=== PATIENT | male | born 1960 | race Caucasian/White ===

== ENCOUNTER 2021-12-06 09:23 | Outpatient (REF) | payer OTHER, SELFPAY ==
[2021-12-06 11:13] LABS: MANUAL DIFF FLAG NO
[2021-12-06 11:21] LABS: Basophils Absolute Auto 0.1 X10*3/uL (0.0-0.2); Basophils Percent Auto 0.9 % (0-2); Eosinophils Absolute Auto 0.2 X10*3/uL (0.0-0.4); Eosinophils Percent Auto 3.9 % (0-4); Hematocrit 41.1 % (42.0-52.0); Hemoglobin 13.5 g/dl (14.0-18.0); Imm Gran Abs Auto 0.01 X10*3/uL (0.00-0.03); Imm Gran Pct Auto 0.2 % (0.0-0.4); Lymphocytes Absolute Auto 2.1 X10*3/uL (1.2-4.9); Lymphocytes Percent Auto 35.8 % (20-40); Mean Corpuscular HGB Conc 32.8 g/dl (31.0-36.0); Mean Corpuscular Volume 85.3 fL (80.0-98.0); Mean Platelet Volume 9.7 fL (9.4-12.4); Monocytes Absolute Auto 0.5 X10*3/uL (0.1-1.2); Monocytes Percent Auto 8.7 % (2-11); Neutrophils Percent Auto 50.5 % (45-73); Platelet Count 305 X10*3/uL (160-400); Red Blood Count 4.82 X10*6/uL (4.60-5.80); Red Cell Distribution Width 13.3 % (11.0-16.0); White Blood Count 5.9 X10*3/uL (4.8-10.8)
[2021-12-06 11:46] LABS: Appearance Urine HAZY; Color Urine YELLOW; Glucose Urine UA NEG (NEG); Leukocyte Esterase Urine NEG (NEG); Nitrite Urine NEG (NEG); PH 5.5 (5.0-8.0); Specific Gravity - Urine >= 1.030 (1.005-1.025); Urine Blood NEG (NEG); Urine Ketones 5 MG/DL (NEG); Urine Protein NEG (NEG-TRACE)
[2021-12-06 12:08] LABS: Estimated Average Glucose 160 mg/dL; Hemoglobin A1c % 7.2 %
[2021-12-06 12:10] LABS: TSH reflex Free T4 1.31 uIU/mL (0.32-4.0)
[2021-12-06 12:23] LABS: Alanine Aminotransferase 65 U/L (0-40); Albumin Level 4.7 g/dL (3.5-5.0); Alkaline Phosphatase 89 U/L (39-117); Anion Gap 11 (12-20); Aspartate Amino Transferase 43 U/L (5-37); Bilirubin Total 0.9 mg/dL (0.0-1.0); Blood Urea Nitrogen 22 mg/dL (9-16); Calcium 9.6 mg/dL (8.4-10.2); Carbon Dioxide 28 mmol/L (22-29); Chloride 106 mmol/L (96-108); Cholesterol 105 mg/dL; Estimated Glomerular Filt Rate > 60; Glucose Fasting 143 mg/dL (60-99); HDL Cholesterol 22 mg/dL; LDL Cholesterol Calculated 61 mg/dl; Potassium 4.3 mmol/L (3.3-5.1); Sodium 141 mmol/L (135-145); Total Protein 7.5 g/dL (6.5-8.0); Triglycerides 111 mg/dL
[2021-12-07 15:12] LABS: Absolute CD3 Count 1621 cells/uL (840-3060); Absolute CD4 Count 1015 cells/uL (490-1740); Absolute CD8 Count 626 cells/uL (180-1170); Absolute Lymphocytes 2100 cells/uL (850-3900); CD4 CD8 Ratio 1.62 (0.86-5.00); Percent CD3 Cells 77 % (57-85); Percent CD4 Cells 48 % (30-61); Percent CD8 Cells 30 % (12-42)
[2021-12-10 17:35] LABS: HIV RNA PCR Qn Copies 101 Copies/mL
== END 2021-12-06 09:24 | disposition home or self-care (01) ==
LOC: HO.WFDLDS 09:23
PROVIDERS: Visit Provider Family Medicine
DX: Z00.00 Encounter for general adult medical examination without abnormal findings (principal); R73.01 Impaired fasting glucose; Z21 Asymptomatic human immunodeficiency virus [HIV] infection status
CPT/HCPCS: 36415; 80053; 80061; 81003; 83036; 84443; 85025; 86359; 86360; 87536

== ENCOUNTER → 2022-01-03 11:02 | Outpatient (BNVA) | payer OTHER, SELFPAY | PROVIDERS: PCP Family Medicine; Visit Provider Internal Medicine ==

== ENCOUNTER 2022-03-14 10:12 | Outpatient (REF) | payer OTHER, SELFPAY ==
[2022-03-14 12:13] LABS: ~HepC Num1 0.07 S/CO (0.00-0.79); ~Hepatitis C Antibody Nonreactive (Nonreactive)
[2022-03-14 12:22] LABS: Syphilis Screen Nonreactive (Nonreactive)
[2022-03-16 16:16] LABS: Absolute CD3 Count 1810 cells/uL (840-3060); Absolute CD4 Count 1124 cells/uL (490-1740); Absolute CD8 Count 690 cells/uL (180-1170); Absolute Lymphocytes 2296 cells/uL (850-3900); CD4 CD8 Ratio 1.63 (0.86-5.00); Percent CD3 Cells 79 % (57-85); Percent CD4 Cells 49 % (30-61); Percent CD8 Cells 30 % (12-42)
[2022-03-17 17:14] LABS: HIV RNA PCR Qn Copies NOT DETECTED copies/mL (NOT DETECTED); HIV RNA PCR Qn Log Copies NOT DETECTED (NOT DETECTED)
== END 2022-03-14 10:13 | disposition home or self-care (01) ==
LOC: HO.WFDLDS 10:12
PROVIDERS: Visit Provider Internal Medicine
DX: Z21 Asymptomatic human immunodeficiency virus [HIV] infection status (principal)
CPT/HCPCS: 36415; 86359; 86360; 86780; 86803; 87536

== ENCOUNTER 2022-07-05 08:32 | Outpatient (REF) | payer OTHER, SELFPAY ==
[2022-07-05 09:38] LABS: Alanine Aminotransferase 64 U/L (0-40); Albumin Level 4.5 g/dL (3.5-5.0); Alkaline Phosphatase 71 U/L (39-117); Anion Gap 17 (12-20); Aspartate Amino Transferase 46 U/L (5-37); Bilirubin Total 0.7 mg/dL (0.0-1.0); Blood Urea Nitrogen 17 mg/dL (9-16); Calcium 8.9 mg/dL (8.4-10.2); Carbon Dioxide 23 mmol/L (22-29); Chloride 106 mmol/L (96-108); Cholesterol 97 mg/dL; Estimated Glomerular Filt Rate > 60; Glucose Fasting 134 mg/dL (60-99); HDL Cholesterol 24 mg/dL; LDL Cholesterol Calculated 51 mg/dl; Sodium 142 mmol/L (135-145); Total Protein 7.3 g/dL (6.5-8.0); Triglycerides 110 mg/dL
[2022-07-05 09:54] LABS: ~HepC Num1 0.05 S/CO (0.00-0.79); ~Hepatitis C Antibody Nonreactive (Nonreactive)
[2022-07-05 09:59] LABS: Prostate Specific Antigen Scr 0.15 ng/mL (<0.05-4.0)
[2022-07-06 11:19] LABS: Syphilis Screen Nonreactive (Nonreactive)
[2022-07-06 12:32] LABS: Absolute CD3 Count 1870 cells/uL (840-3060); Absolute CD4 Count 1181 cells/uL (490-1740); Absolute CD8 Count 705 cells/uL (180-1170); Absolute Lymphocytes 2323 cells/uL (850-3900); CD4 CD8 Ratio 1.68 (0.86-5.00); Percent CD3 Cells 81 % (57-85); Percent CD4 Cells 51 % (30-61); Percent CD8 Cells 30 % (12-42)
[2022-07-08 12:06] LABS: HIV RNA PCR Qn Copies NOT DETECTED copies/mL (NOT DETECTED); HIV RNA PCR Qn Log Copies NOT DETECTED (NOT DETECTED)
== END 2022-07-05 08:33 | disposition home or self-care (01) ==
LOC: HO.LAB 08:32
PROVIDERS: Absent Provider Internal Medicine; PCP Family Medicine; Visit Provider Family Medicine
DX: Z00.00 Encounter for general adult medical examination without abnormal findings (principal); Z12.5 Encounter for screening for malignant neoplasm of prostate; Z21 Asymptomatic human immunodeficiency virus [HIV] infection status
CPT/HCPCS: 36415; 80053; 80061; 84153; 86359; 86360; 86780; 86803; 87536

== ENCOUNTER 2022-09-05 10:18 | Outpatient (REF) | payer OTHER, SELFPAY ==
--- NOTE | ~2022-09-05 | US_ITS ---
EXAMINATION: US ABDOMEN LIMITED WITH LIVER ELASTOGRAPHY CLINICAL INFORMATION: Abnormal liver function tests COMPARISON: None. TECHNIQUE: Real-time imaging of the abdominal viscera. Noninvasive ultrasound liver fibrosis assessment is performed using Divya ElastPQ point quantification shear wave elastography (2D-SWE) with a C5-2 MHz transducer. Multiple elastography samples are obtained. FINDINGS: PANCREAS: Not well visualized due to bowel gas LIVER: Enlarged echogenic liver probably representing fatty infiltration. Hypoechoic area adjacent to the gallbladder, characteristic location of focal fatty sparing. No other focal lesion or intrahepatic biliary duct dilatation. The right lobe measures 19 cm in length. The left lobe measures 12 cm in length. Portal flow is normal/hepatopedal Shear wave liver elastography median stiffness is 1.4 m/s (reference: normal median stiffness is 1.3 m/s or less). IQR/median stiffness to assess sampling precision is 0.01 (reference: good quality data set is IQR/median stiffness of 0.15 or less). GALLBLADDER: Normal. The gallbladder is physiologically distended without evidence of stones, sludge, polyps, wall thickening or pericholecystic fluid. COMMON BILE DUCT: Normal in caliber measuring 0.5 cm in diameter. RIGHT KIDNEY: Normal. No hydronephrosis. No renal calculi or focal parenchymal lesions. The kidney measures 13.7 cm in maximum dimension. FREE FLUID: None. US/US abdomen licona w elastography IMPRESSION: 1. Impression: Enlarged echogenic liver suggestive of fatty infiltration. Pancreas not well visualized 2. Liver elastography: Adequate liver sampling. In the absence of other known clinical signs, rules out compensated advanced chronic liver disease. REFERENCE: Society of Radiologists in Ultrasound Liver Stiffness Thresholds (2020): LIVER STIFFNESS THRESHOLDS: *Liver Stiffness equal or less than 1.3 m/s: High probability of being normal. *Liver Stiffness less than 1.7 m/s: In the absence of other known clinical signs, rules out compensated advanced chronic liver disease. *Liver Stiffness 1.7-2.1 m/s: Suggestive of compensated advanced chronic liver disease but need further test for confirmation. *Liver Stiffness over 2.1 m/s: Rules in compensated advanced chronic liver disease. *Liver Stiffness over 2.4 m/s: Suggestive of clinically significant portal hypertension. QUALITY OF DATA SET: *IQR/Median value equal or less than 0.15 implies a quality data set. *IQR/Median value over 0.15 implies a poor quality data set. SIGNIFICANT CHANGE FROM PRIOR EXAM: Significant change if liver stiffness measurement is 10% or greater from prior exam. OTHER CONSIDERATIONS: The stage of liver fibrosis may be overestimated in the setting of acute hepatitis, liver inflammation, elevated liver function tests, hepatic vascular congestion, obstructive cholestasis, non-fasting state, and infiltrative diseases such as amyloidosis and lymphoma. In some patients with NAFLD, the liver stiffness thresholds for compensated advanced chronic liver disease may be lower. In causes other than viral hepatitis and NAFLD, liver stiffness thresholds are not well established.
== END 2022-09-05 10:19 | disposition home or self-care (01) ==
LOC: HO.US 10:18
PROVIDERS: Visit Provider Family Medicine
DX: R74.8 Abnormal levels of other serum enzymes (principal)
CPT/HCPCS: 76705; 76981

== ENCOUNTER → 2022-11-07 13:58 | Outpatient (BNVA) | payer OTHER, SELFPAY | PROVIDERS: PCP Family Medicine; Referring Provider Family Medicine; Visit Provider Internal Medicine Cardiovascular Disease | DX: I25.10 Atherosclerotic heart disease of native coronary artery without angina pectoris (principal) | CPT/HCPCS: 93005 ==

== ENCOUNTER 2022-11-24 08:57 | Outpatient (REF) | payer OTHER, SELFPAY ==
[2022-11-24 11:33] LABS: Alanine Aminotransferase 93 U/L (0-40); Albumin Level 4.8 g/dL (3.5-5.0); Alkaline Phosphatase 90 U/L (39-117); Anion Gap 13 (12-20); Aspartate Amino Transferase 72 U/L (5-37); Bilirubin Total 0.9 mg/dL (0.0-1.0); Blood Urea Nitrogen 15 mg/dL (9-16); Carbon Dioxide 30 mmol/L (22-29); Chloride 102 mmol/L (96-108); Cholesterol 100 mg/dL; Estimated Glomerular Filt Rate > 60; Glucose Fasting 118 mg/dL (60-99); HDL Cholesterol 22 mg/dL; LDL Cholesterol Calculated 48 mg/dl; Potassium 4.7 mmol/L (3.3-5.1); Sodium 140 mmol/L (135-145); Total Protein 7.6 g/dL (6.5-8.0); Triglycerides 150 mg/dL
[2022-11-24 11:35] LABS: Prostate Specific Antigen Scr 0.23 ng/mL (<0.05-4.0); TSH reflex Free T4 2.08 uIU/mL (0.32-4.0)
== END 2022-11-24 08:58 | disposition home or self-care (01) ==
LOC: HO.WFDLDS 08:57
PROVIDERS: Visit Provider Family Medicine
DX: Z00.00 Encounter for general adult medical examination without abnormal findings (principal); Z12.5 Encounter for screening for malignant neoplasm of prostate
CPT/HCPCS: 36415; 80053; 80061; 84153; 84443

== ENCOUNTER 2022-11-25 08:35 | Outpatient (REF) | payer OTHER, SELFPAY ==
[2022-11-25 11:38] LABS: Appearance Urine Clear; Color Urine Yellow; Glucose Urine UA Negative (Negative); Leukocyte Esterase Urine Negative (Negative); Nitrite Urine Negative (Negative); Urine Blood Negative (Negative); Urine Ketones Negative (Negative); Urine Protein Negative (Neg-Trace)
[2022-11-25 13:46] LABS: Creatinine Urine 104.81 mg/dL; Microalbum/Creatinine Ratio Ur 7.6 ug/mg cr
== END 2022-11-25 08:36 | disposition home or self-care (01) ==
LOC: HO.WFDLNP 08:35
PROVIDERS: Visit Provider Family Medicine
DX: Z00.00 Encounter for general adult medical examination without abnormal findings (principal); I10 Essential (primary) hypertension
CPT/HCPCS: 81003; 82043

== ENCOUNTER → 2022-12-12 15:16 | Outpatient (BNVA) | payer OTHER, SELFPAY | PROVIDERS: PCP Family Medicine; Visit Provider Nurse Practitioner Family | DX: Z13.89 Encounter for screening for other disorder (principal) ==

== ENCOUNTER 2023-01-03 08:31 | Outpatient (REF) | payer OTHER, SELFPAY ==
[2023-01-03 08:57] LABS: MANUAL DIFF FLAG NO
[2023-01-03 09:38] LABS: Basophils Percent Auto 0.7 % (0-2); Eosinophils Absolute Auto 0.2 X10*3/uL (0.0-0.4); Eosinophils Percent Auto 3.7 % (0-4); Hematocrit 42.4 % (42.0-52.0); Hemoglobin 13.8 g/dl (14.0-18.0); Imm Gran Abs Auto 0.01 X10*3/uL (0.00-0.03); Imm Gran Pct Auto 0.2 % (0.0-0.4); Lymphocytes Absolute Auto 2.4 X10*3/uL (1.2-4.9); Lymphocytes Percent Auto 39.8 % (20-40); Mean Corpuscular HGB Conc 32.5 g/dl (31.0-36.0); Mean Corpuscular Hemoglobin 27.8 pg (27.0-33.0); Mean Corpuscular Volume 85.5 fL (80.0-98.0); Monocytes Absolute Auto 0.7 X10*3/uL (0.1-1.2); Monocytes Percent Auto 11.7 % (2-11); Neutrophils Absolute Auto 2.6 x10*3/uL (2.0-8.3); Neutrophils Percent Auto 43.9 % (45-73); Platelet Count 272 X10*3/uL (160-400); Red Blood Count 4.96 X10*6/uL (4.60-5.80); Red Cell Distribution Width 13.5 % (11.0-16.0); White Blood Count 5.9 X10*3/uL (4.8-10.8)
[2023-01-03 10:07] LABS: Alanine Aminotransferase 51 U/L (0-40); Albumin Level 4.5 g/dL (3.5-5.0); Alkaline Phosphatase 84 U/L (39-117); Anion Gap 13 (12-20); Aspartate Amino Transferase 34 U/L (5-37); Bilirubin Direct 0.2 mg/dL (0.0-0.5); Blood Urea Nitrogen 17 mg/dL (9-16); Calcium 9.1 mg/dL (8.4-10.2); Carbon Dioxide 27 mmol/L (22-29); Chloride 105 mmol/L (96-108); Cholesterol 92 mg/dL; Estimated Glomerular Filt Rate > 60; Glucose Random 118 mg/dL (60-115); HDL Cholesterol 25 mg/dL; LDL Cholesterol Calculated 43 mg/dl; Potassium 4.4 mmol/L (3.3-5.1); Sodium 141 mmol/L (135-145); Total Protein 7.1 g/dL (6.5-8.0); Triglycerides 121 mg/dL
[2023-01-04 04:48] LABS: Syphilis Screen Nonreactive (Nonreactive)
[2023-01-04 06:10] LABS: ~HepC Num1 0.08 S/CO (0.00-0.79); ~Hepatitis C Antibody Nonreactive (Nonreactive)
[2023-01-04 16:19] LABS: Absolute CD3 Count 1909 cells/uL (840-3060); Absolute CD4 Count 1200 cells/uL (490-1740); Absolute CD8 Count 730 cells/uL (180-1170); Absolute Lymphocytes 2420 cells/uL (850-3900); CD4 CD8 Ratio 1.64 (0.86-5.00); Percent CD3 Cells 79 % (57-85); Percent CD4 Cells 50 % (30-61); Percent CD8 Cells 30 % (12-42)
[2023-01-06 08:44] LABS: CRP High Sensitivity 0.7 mg/L
[2023-01-06 14:08] LABS: HIV RNA PCR Qn Copies NOT DETECTED copies/mL (NOT DETECTED); HIV RNA PCR Qn Log Copies NOT DETECTED (NOT DETECTED)
== END 2023-01-03 08:32 | disposition home or self-care (01) ==
LOC: HO.LAB 08:31
PROVIDERS: Absent Provider Internal Medicine; PCP Family Medicine; Visit Provider Internal Medicine Cardiovascular Disease
DX: I25.10 Atherosclerotic heart disease of native coronary artery without angina pectoris (principal); E78.5 Hyperlipidemia, unspecified; Z21 Asymptomatic human immunodeficiency virus [HIV] infection status
CPT/HCPCS: 36415; 80048; 80061; 80076; 85025; 86141; 86359; 86360; 86780; 86803; 87536

== ENCOUNTER → 2023-01-09 11:00 | Outpatient (BNVA) | payer OTHER, SELFPAY | PROVIDERS: PCP Family Medicine; Visit Provider Internal Medicine | DX: Z13.89 Encounter for screening for other disorder (principal) ==

== ENCOUNTER 2023-06-05 15:36 | Outpatient (AMB) | payer OTHER, SELFPAY ==
--- NOTE | 2023-06-05 15:48 | A.OFFPC_ITS ---
Vital Signs 06/05/23 15:50 Height 5 ft 6 in Weight 196 lb BMI 31.6 BP 116/72 Blood Pressure Location Lt brachial Position Sitting Pulse 80 Pulse Source Pulse Oximeter Pulse Oximetry (%) 96 Oxygen Delivery Method Room Air Intake Visit Reasons: f/u diabetes Intake Note: Patient is here to follow up on his diabetes, and would like to go over sleep study report. Allergies lisinopril Adverse Reaction (Intermediate, Verified 06/05/23 15:52) Dry cough Medication List - Last Reconciled 06/05/23 by Akash Diaz MD amlodipine 10 mg PO DAILY 90 days aspirin 81 mg PO DAILY 90 days vrhyolobp-sfqhzzxy-wurzrni ala 50-200-25 mg (Biktarvy) 1 tab PO DAILY 90 days bisacodyl (Dulcolax (bisacodyl)) 10 mg (2 x 5 mg) PO ONCE 1 day empagliflozin (Jardiance) 10 mg PO QAM 30 days ezetimibe (Zetia) 10 mg PO DAILY 90 days loratadine 10 mg PO DAILY losartan 50 mg PO DAILY 90 days metformin 500 mg PO BID 90 days metoprolol succinate ER 50 mg PO DAILY multivit with min-folic acid 120 mcg (Centrum Adult 50 Plus Fresh-Fruity) 1 tab PO DAILY omega-3 fatty acids 500 mg PO BID 90 days omeprazole 20 mg PO BID 90 days polyethylene glycol 3350 (Miralax) 238 grams PO ONCE rosuvastatin 20 mg PO BEDTIME 90 days tamsulosin 0.4 mg PO BEDTIME Tobacco use date assessed: 12/05/22 Dental Screening Dental Screen Date: 06/05/23 Did you have a dental visit in the last 12 months?: Yes Did you have a dental problem in the last 6 months where you did not have access to dental care?: No Was dental information given to patient?: No HPI f/u diabetes HPI Details 62 y/o male presents to f/u diabetes. Last A1c 03/06/23 was 6.5%. He is on Jardiance and metformin 500mg b.i.d. A1c today 06/05/23 is 6.7%. Blood pressure today is 116/72. He is on amlodipine 10mg, losartan 50mg and metoprolol 50mg daily. He reports Cardiology has sent him for a sleep study but he reports this had been over a year ago. 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 Brett Donnelly, Jyothi Madison, Darian Patterson and colleagues, with an educational ara from [employer]. Review of Systems Const Denies chills, Denies fatigue, Denies fever(s), Denies headache(s) and Denies weakness ENT Denies dizziness and Denies headache(s) Card Denies chest pain, Denies lightheadedness, Denies dyspnea and Denies other (Palpitations) Resp Denies cough, Denies dyspnea, Denies wheezing and Denies other ( shortness of breath) Musc Denies numbness and Denies tingling Neuro Denies dizziness, Denies headache(s), Denies numbness, Denies tingling, Denies paresthesias and Denies weakness Psych Denies anxiety and Denies depression Endo Denies fatigue Aller/Immun Denies wheezing Physical exam (Primary Care) Vital Signs: Last Vital Signs Pulse 80 06/05/23 15:50 BP 116/72 06/05/23 15:50 Pulse Ox 96 06/05/23 15:50 Oxygen Delivery Method Room Air 06/05/23 15:50 BMI result Body Mass Index 31.6 Tobacco/Smoking Status: Tobacco use Status Tobacco use date assessed 12/05/22 06/05/23 15:48 Patient Tobacco Use Status Never used Tobacco 06/05/23 15:48 e-Cigarette/Vaping Use Never Used 06/05/23 15:48 Thrive Assessment: Date of Thrive Assessment Date Thrive assessed 11/15/21 06/05/23 15:48 Const General: no acute distress and well developed Nutritional Appearance: well nourished Orientation/consciousness: patient oriented x3 [facility] Head: Yes normocephalic and Yes atraumatic Eyes General: appearance normal, both eyes and all related structures Pupils: Equal, round and reactive pupils present EOM: EOMs intact bilaterally Resp Effort & Inspection: normal respiratory effort Auscultation: clear to auscultation bilaterally Cardio Rate: regular rate Rhythm: regular rhythm Heart sounds: S1 normal heart sound present, S2 normal heart sound present, no gallops, no murmurs and no rubs Neuro General: patient oriented x3 and gait normal Cranial nerves: Yes Equal, round and reactive pupils present Psych Affect: normal affect Results AMB Hemoglobin A1c AMB Hemoglobin A1c 6.7 % Last Edit by Deysi Oquendo CMA on 06/05/23 16:09 Results Reviewed Results Reviewed: Laboratory Last Values Hgb A1c (Clinic) 6.7 % (4.0-6.0) H 06/05/23 16:08 Assessment and Plan Assessment & Plan (1) Diabetes: Code(s): E11.9 - Type 2 diabetes mellitus without complications Plan: A1c is well controlled slightly increased from prior check. Goal is less than 7.0% Continue current medication regimen; he has been taking metformin a g p.m. and 250 mg a.m.-I will adjust his med list today. He is due for an eye exam. Had been seeing Dr. Monet. He will try to make an appointment and if he is unable to do so he will let me know and I will make a new referral. (2) Essential hypertension: Code(s): I10 - Essential (primary) hypertension Plan: Blood pressure is well controlled. Goal is less than 130/80 Continue current medication regimen (3) Coronary artery disease: Code(s): I25.10 - Atherosclerotic heart disease of [place] coronary artery without angina pectoris Plan: Stable Continue rosuvastatin and aspirin (4) Sleep apnea: Code(s): G47.30 - Sleep apnea, unspecified Plan: Patient was evaluated by BM see sleep medicine and has a positive sleep study. He says he has not had any follow-up since then. He would like a referral to [facility] sleep medicine Referral made Orders: Orders AMB Hemoglobin A1c Today Z13.9 - Encounter for screening, unspecified Referrals Sleep Medicine Referral G47.30 - Sleep apnea, unspecified Medications: Changed From metformin 500 mg PO BID 90 days 180 tabs 3RF To metformin 250 mg a.m. and 500 mg p.m. orally 2 times a day; 135 tabs 3RF 90 days Coding Level of Care Code Est Pt Level 4 (37016) Diagnoses Diabetes E11.9 Essential hypertension I10 Coronary artery disease I25.10 Sleep apnea G47.30
[2023-06-05 15:50] VITALS: BP 116/72; PULSE 80; O2SAT 96; BMI 31.6
== END 2023-06-05 16:29 | disposition home or self-care (01) ==
PROVIDERS: Visit Provider Family Medicine
DX: E11.9 Type 2 diabetes mellitus without complications (principal); I10 Essential (primary) hypertension; I25.10 Atherosclerotic heart disease of native coronary artery without angina pectoris; G47.30 Sleep apnea, unspecified
CPT/HCPCS: 83036; 99214

== ENCOUNTER 2023-06-30 13:09 | Outpatient (REF) | payer OTHER, SELFPAY ==
[2023-06-30 13:22] LABS: MANUAL DIFF FLAG NO
[2023-06-30 13:56] LABS: Basophils Absolute Auto 0.1 X10*3/uL (0.0-0.2); Eosinophils Absolute Auto 0.5 X10*3/uL (0.0-0.4); Eosinophils Percent Auto 7.2 % (0-4); Hematocrit 45.4 % (42.0-52.0); Hemoglobin 14.8 g/dl (14.0-18.0); Imm Gran Abs Auto 0.01 X10*3/uL (0.00-0.03); Imm Gran Pct Auto 0.1 % (0.0-0.4); Lymphocytes Absolute Auto 2.3 X10*3/uL (1.2-4.9); Mean Corpuscular HGB Conc 32.6 g/dl (31.0-36.0); Mean Corpuscular Hemoglobin 27.9 pg (27.0-33.0); Mean Corpuscular Volume 85.5 fL (80.0-98.0); Mean Platelet Volume 9.4 fL (9.4-12.4); Monocytes Absolute Auto 0.6 X10*3/uL (0.1-1.2); Monocytes Percent Auto 9.4 % (2-11); Neutrophils Absolute Auto 3.4 x10*3/uL (2.0-8.3); Neutrophils Percent Auto 49.3 % (45-73); Platelet Count 273 X10*3/uL (160-400); Red Blood Count 5.31 X10*6/uL (4.60-5.80); Red Cell Distribution Width 13.7 % (11.0-16.0); White Blood Count 6.8 X10*3/uL (4.8-10.8)
[2023-06-30 14:42] LABS: Chloride 106 mmol/L (96-108); Potassium 4.3 mmol/L (3.3-5.1); Sodium 141 mmol/L (135-145)
[2023-06-30 14:43] LABS: Alanine Aminotransferase 41 U/L (0-40); Albumin Level 4.6 g/dL (3.5-5.0); Alkaline Phosphatase 99 U/L (39-117); Anion Gap 17 (12-20); Aspartate Amino Transferase 30 U/L (5-37); Bilirubin Direct 0.3 mg/dL (0.0-0.5); Bilirubin Total 0.9 mg/dL (0.0-1.0); Blood Urea Nitrogen 17 mg/dL (9-16); Calcium 9.6 mg/dL (8.4-10.2); Carbon Dioxide 22 mmol/L (22-29); Estimated Glomerular Filt Rate > 60; Glucose Random 183 mg/dL (60-115); Total Protein 7.3 g/dL (6.5-8.0)
[2023-07-01 14:41] LABS: ~HepC Num1 0.04 S/CO (0.00-0.79); ~Hepatitis C Antibody Nonreactive (Nonreactive)
[2023-07-03 09:01] LABS: Syphilis Screen Nonreactive (Nonreactive)
[2023-07-03 10:34] LABS: Absolute CD3 Count 2034 cells/uL (840-3060); Absolute CD4 Count 1271 cells/uL (490-1740); Absolute CD8 Count 789 cells/uL (180-1170); Absolute Lymphocytes 2539 cells/uL (850-3900); CD4 CD8 Ratio 1.61 (0.86-5.00); Percent CD3 Cells 80 % (57-85); Percent CD4 Cells 50 % (30-61); Percent CD8 Cells 31 % (12-42)
[2023-07-03 14:58] LABS: HIV RNA PCR Qn Copies NOT DETECTED copies/mL (NOT DETECTED); HIV RNA PCR Qn Log Copies NOT DETECTED (NOT DETECTED)
== END 2023-06-30 13:10 | disposition home or self-care (01) ==
LOC: HO.LAB 13:09
PROVIDERS: PCP Family Medicine; Visit Provider Internal Medicine
DX: Z21 Asymptomatic human immunodeficiency virus [HIV] infection status (principal)
CPT/HCPCS: 36415; 80048; 80076; 85025; 86359; 86360; 86780; 86803; 87536

== ENCOUNTER 2023-07-17 10:57 | Outpatient (AMB) | payer OTHER, SELFPAY ==
--- NOTE | 2023-07-17 11:04 | MHC.OFFVIS ---
Intake Vital Signs 07/17/23 11:05 Height 5 ft 6 in Weight 196 lb BMI 31.6 BP 120/70 Blood Pressure Location Lt brachial Position Sitting Pulse 68 Pulse Source Pulse Oximeter Pulse Oximetry (%) 96 Intake Visit Reasons: 6 month HIV F/U Allergies lisinopril Adverse Reaction (Intermediate, Verified 07/17/23 11:10) Dry cough HPI 6 month HIV F/U HPI Details His CD4 count is 1271 and viral load undetectable on 06/30/2023. He has no complaints and is feeling well. He takes Biktarvy. 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 Current occupational exposures/hazards: No Cognitive needs: No Hearing needs: No Vision needs: Yes (reading glasses) Review of Systems Const All systems reviewed & are unremarkable except as noted in HPI and below Physical Exam Vital Signs: Last Vital Signs Pulse 68 07/17/23 11:05 BP 120/70 07/17/23 11:05 Pulse Ox 96 07/17/23 11:05 BMI result Body Mass Index 31.6 Const General: cooperative Orientation/consciousness: patient oriented x3 HEENT Head: Yes normal to inspection Mouth: Normal oral and palatal mucosa present Eyes General: appearance normal, both eyes and all related structures Pupils: Equal, round and reactive pupils present Resp Effort & Inspection: normal respiratory effort Cardio Rate: regular rate Rhythm: regular rhythm GI Palpation (GI): Soft to palpation and nontender General: Yes no CVA tenderness Back/Spine/Pelvis Back: no CVA tenderness Skin General skin exam: no rashes or lesions noted Neuro General: patient oriented x3 Cranial nerves: Yes CN's II-XII intact bilaterally and Yes Equal, round and reactive pupils present Extrem General: Yes normal to inspection Psych Appearance: grossly normal Assessment & Plan Assessment & Plan (1) HIV positive: Comment: He is doing well. He takes Biktarvy daily. His viral load undetectable and CD4 count appropriate. Code(s): Z21 - Asymptomatic human immunodeficiency virus [HIV] infection status Plan: Continue Biktarvy. See in six months and check labs before. Coding Level of Care Code Est Pt Level 3 (95016) Diagnoses HIV positive Z21
[2023-07-17 11:05] VITALS: BP 120/70; PULSE 68; O2SAT 96; BMI 31.6
== END 2023-07-17 11:34 | disposition home or self-care (01) ==
LOC: HO.HID 10:57
PROVIDERS: PCP Family Medicine; Visit Provider Internal Medicine
DX: Z21 Asymptomatic human immunodeficiency virus [HIV] infection status (principal)
CPT/HCPCS: 99213

== ENCOUNTER → 2023-07-17 10:57 | Outpatient (BNVA) | payer OTHER, SELFPAY | PROVIDERS: PCP Family Medicine; Visit Provider Internal Medicine ==

== ENCOUNTER 2023-08-21 12:49 | Outpatient (AMB) | payer OTHER, SELFPAY ==
--- NOTE | 2023-08-21 12:58 | MHC.OFFVIS ---
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 He reports he had a a sleep study in the past but never found out what his results were. Allergies lisinopril Adverse Reaction (Intermediate, Verified 08/21/23 13:03) Dry cough HPI HPI Comments History of Present Illness Details 62 y/o male patient with CAD s/p stent, DE, HTN and T2DM presents for new in-person visit to manage sleep apnea. Pt reports that he had a sleep study done and diagnosed with AYUSH. However, never had a CPAP and the sleep study is for applying for a new CPAP. The home sleep study result (01/2022) was moderate to severe degree of sleep apnea. The overall AHI was 16/hr and supine AHI was 33/hr with oxygen herber was 79%. Pt reports snoring, non refreshing sleep and daytime sleepiness. He had a shoulder injury and the shoulder pain bothers his sleep, too. Sleep hygiene questionnaire: What is your usual sleep routine? N/A, Usual bedtime is at ; Usual wake up time is at. Do you take naps? No. Is your sleep environment cool, dark, and quiet? Yes, and using rain sound to fall asleep. Do you exercise? No. Do you take caffeine or other stimulants? Yes, 2 cups of coffee daily. Do you use electronics in bed? Yes. What is your work schedule? N/A. Hypersomnolence questionnaire: Do you have daytime tiredness or fatigue? Yes,. Do you easily fall asleep when inactive? No. Have you ever had episodes of sudden weakness? No. Have you ever had episodes of sudden weakness associated with strong emotions? No. 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 Current occupational exposures/hazards: No Cognitive needs: No Hearing needs: No Vision needs: Yes (reading glasses) Review of Systems Const All systems reviewed & are unremarkable except as noted in HPI and below ENT Reports Normal hearing present Neuro Reports Normal hearing present Physical Exam Vital Signs: Last Vital Signs Pulse 62 08/21/23 12:59 Resp 16 08/21/23 12:59 BP 122/76 08/21/23 12:59 Pulse Ox 97 08/21/23 12:59 Oxygen Delivery Method Room Air 08/21/23 12:59 BMI result Body Mass Index 28.7 Const General: cooperative Nutritional Appearance: overweight Orientation/consciousness: patient oriented x3 Neck Neck: Yes full ROM and Yes supple Resp Effort & Inspection: normal respiratory effort and able to speak in complete sentences Neuro General: patient oriented x3, gait normal and moves all extremities Cranial nerves: Yes Bilaterally intact EOM present, Yes Normal facial strength present, Yes Midline tongue present, Yes Symmetric palate elevation present, Yes Normal hearing present, Yes Ability to bilaterally rotate head present and Yes Ability to bilaterally elevate shoulders present Cognition (Neuro): normal cognition Gait exam (Neuro): Normal gait present Motor exam (neuro): 5/5 motor strength present throughout, Pronator motor function not present and no tremor noted Psych Appearance: grossly normal Mental Status: mental status grossly normal Speech and movement: Normal speech and movement present Affect: normal affect Attitude: cooperative Assessment & Plan Assessment & Plan (1) Sleep apnea: Comment: Moderate to severe degree of sleep apnea. Overall AHI was 16/hr, supine AHI was 33/hr with oxygen herber was 79%. Code(s): G47.30 - Sleep apnea, unspecified Plan Pt is advised to undergo in lab sleep study to assess for sleep apnea Will f/u with pt after study to discuss results and appropriate treatment options. Sleep hygiene education provided, having routine sleep schedule. Pt to call with any worsening concerns or questions. Orders: Orders RT PSG in-lab sleep study 08/21/23 G47.30 - Sleep apnea, unspecified, E11.9 - Type 2 diabetes mellitus without complications, I10 - Essential (primary) hypertension, I25.10 - Atherosclerotic heart disease of [place] coronary artery without angina pectoris, Z95.5 - Presence of coronary angioplasty implant and graft Coding Level of Care Code New Pt Level 3 (34628) Diagnoses Sleep apnea G47.30
[2023-08-21 12:59] VITALS: BP 122/76; PULSE 62; RESP 16; O2SAT 97; BMI 28.7
== END 2023-08-21 13:32 | disposition home or self-care (01) ==
PROVIDERS: PCP Family Medicine; Visit Provider Nurse Practitioner Family
DX: G47.30 Sleep apnea, unspecified (principal)
CPT/HCPCS: 99203

== ENCOUNTER → 2023-08-21 12:49 | Outpatient (BNVA) | payer OTHER, SELFPAY | PROVIDERS: PCP Family Medicine; Visit Provider Nurse Practitioner Family ==

== ENCOUNTER 2023-09-04 14:26 | Outpatient (AMB) | payer OTHER, SELFPAY ==
--- NOTE | 2023-09-04 14:29 | MHC.PC.OV ---
Vital Signs 09/04/23 14:33 Height 5 ft 8 in Weight 188 lb BMI 28.6 BP 122/70 Blood Pressure Location Lt brachial Position Sitting Pulse 64 Pulse Source Pulse Oximeter Pulse Oximetry (%) 98 Oxygen Delivery Method Room Air Intake Visit Reasons: f/u diabetes Intake Note: Patient is following up on his diabetes today. Allergies lisinopril Adverse Reaction (Intermediate, Verified 09/04/23 14:35) Dry cough Tobacco use date assessed: 09/04/23 Dental Screening Dental Screen Date: 09/04/23 Did you have a dental visit in the last 12 months?: No Did you have a dental problem in the last 6 months where you did not have access to dental care?: No Was dental information given to patient?: Yes HPI f/u diabetes HPI Details Patient?presents?to?follow-up?diabetes?and?hypertension. Blood?pressure?today?122/70. A1c: 6.6% He?had?also?had?elevated?liver?enzymes?in?the?past. Ultrasound?showed?fatty?liver Liver?enzymes?still?mildly?elevated. 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 Brett Donnelly, Jyothi Madison, Darian Patterson and colleagues, with an educational ara from [facility]. Review of Systems Const Denies chills, Denies fatigue, Denies fever(s), Denies headache(s) and Denies weakness ENT Denies dizziness and Denies headache(s) Card Denies chest pain, Denies lightheadedness, Denies dyspnea and Denies other (Palpitations) Resp Denies cough, Denies dyspnea, Denies wheezing and Denies other ( shortness of breath) Musc Denies numbness and Denies tingling Neuro Denies dizziness, Denies headache(s), Denies numbness, Denies Sensory deficit (Neuro), Denies tingling, Denies paresthesias and Denies weakness Psych Denies anxiety and Denies depression Endo Denies fatigue, Denies polydipsia and Denies polyuria Aller/Immun Denies wheezing Physical exam (Primary Care) BMI result Body Mass Index 28.6 Tobacco/Smoking Status: Tobacco use Status Tobacco use date assessed 09/04/23 09/04/23 14:36 Patient Tobacco Use Status Never used Tobacco 09/04/23 14:31 e-Cigarette/Vaping Use Never Used 09/04/23 14:31 Thrive Assessment: Date of Thrive Assessment Date Thrive assessed 11/15/21 09/04/23 14:31 Const General: no acute distress, well developed, alert and awake Nutritional Appearance: well nourished Orientation/consciousness: patient oriented x3 HENMT Head: Yes normocephalic and Yes atraumatic Ears: hearing grossly normal bilaterally and TM's normal bilaterally General nose exam: Normal external nose present and Normal nares present Mouth: Normal oral and palatal mucosa present and moist mucous membranes Teeth and gingiva: dentition normal Throat: Yes posterior oropharynx normal Eyes Pupils: Equal, round and reactive pupils present and Pupil accommodation reflex normal EOM: EOMs intact bilaterally Neck Neck: Yes normal visual inspection, Yes no lymphadenopathy and Yes trachea midline Thyroid: Thyroid normal Carotids: no bruits Lymphatic: no lymphadenopathy noted Chest Chest palpation & inspection: normal inspection of the chest Resp Effort & Inspection: normal respiratory effort Auscultation: clear to auscultation bilaterally Cardio Rate: regular rate Rhythm: regular rhythm Heart sounds: S1 normal heart sound present, S2 normal heart sound present, no gallops, no murmurs and no rubs Bruits: no abdominal aortic bruits and no carotid bruits GI Palpation (GI): No Abdominal aortic bruit present, Soft to palpation, nontender, No hepatosplenomegaly present and No Rebound tenderness present Auscultation: normal bowel sounds General: Yes no CVA tenderness Back/Spine/Pelvis Back: no CVA tenderness Cervical Spine: cervical ROM normal and No Cervical spine tenderness Thoracic/Lumbar Spine: thoraco-lumbar ROM normal, No pain with thoraco-lumbar ROM, No thoracic spinal tenderness and No lumbar spinal tenderness Skin Lesions: no lesions Rashes: no rashes Trauma: no lacerations or abrasions Wounds: no wounds Nails: normal Neuro General: patient oriented x3, gait normal and CN's II-XI intact bilaterally Cranial nerves: Yes Equal, round and reactive pupils present Cognition (Neuro): normal cognition Gait exam (Neuro): Normal gait present Motor exam (neuro): 5/5 motor strength present throughout Sensory Exam: No Sensory deficit (Neuro) Deep tendon reflexes (DTR's): Right patellar reflex intensity grade: 2+ and Left patellar reflex intensity grade: 2+ Extrem General: Yes normal to inspection and No edema Psych Appearance: grossly normal Affect: normal affect Attitude: cooperative Thought process: Normal thought process present Results AMB Hemoglobin A1c AMB Hemoglobin A1c 6.6 % Last Edit by Deysi Oquendo CMA on 09/04/23 14:49 Assessment and Plan Assessment & Plan (1) Essential hypertension: Code(s): I10 - Essential (primary) hypertension Plan: Blood?pressure?is?122/70.??Good?control. Goal?is?less?than?130/80?for?patient?with?coronary?artery?disease Continue?current?medication (2) Coronary artery disease: Code(s): I25.10 - Atherosclerotic heart disease of [place] coronary artery without angina pectoris Plan: Stable (3) Diabetes: Code(s): E11.9 - Type 2 diabetes mellitus without complications Plan: A1C 6.6%. Good control. Goal is < 7.0% Current?medications (4) Elevated liver enzymes: Code(s): R74.8 - Abnormal levels of other serum enzymes Plan: Prior Liver ultrasound showed fatty liver We will follow this Encouraged weight loss?and?he?has?lost?about?8?lb?since?May/June. Orders: Orders Comprehensive [place]. Panel Fast Today Z00.00 - Encounter for general adult medical examination without abnormal findings AMB Hemoglobin A1c Today Z13.9 - Encounter for screening, unspecified Coding Level of Care Code Est Pt Level 4 (76755) Diagnoses Essential hypertension I10 Coronary artery disease I25.10 Diabetes E11.9 Elevated liver enzymes R74.8
[2023-09-04 14:33] VITALS: BP 122/70; PULSE 64; O2SAT 98; BMI 28.6
== END 2023-09-04 15:02 | disposition home or self-care (01) ==
PROVIDERS: PCP Family Medicine; Visit Provider Family Medicine
DX: I10 Essential (primary) hypertension (principal); I25.10 Atherosclerotic heart disease of native coronary artery without angina pectoris; E11.9 Type 2 diabetes mellitus without complications; R74.8 Abnormal levels of other serum enzymes
CPT/HCPCS: 83036; 99214

== ENCOUNTER → 2023-09-12 20:30 | Outpatient (REF) | payer OTHER, SELFPAY | LOC: HO.SL 20:30 | PROVIDERS: PCP Family Medicine; Visit Provider Nurse Practitioner Family | DX: I25.10 Atherosclerotic heart disease of native coronary artery without angina pectoris (principal); E11.9 Type 2 diabetes mellitus without complications; I10 Essential (primary) hypertension; G47.33 Obstructive sleep apnea (adult) (pediatric); Z95.5 Presence of coronary angioplasty implant and graft | CPT/HCPCS: 95810 ==

== ENCOUNTER → 2023-09-12 21:34 | Outpatient (BNV) | payer OTHER, SELFPAY | PROVIDERS: PCP Family Medicine; Visit Provider Psychiatry & Neurology Neurology | DX: G47.33 Obstructive sleep apnea (adult) (pediatric) (principal) | CPT/HCPCS: 95810 ==

== ENCOUNTER 2023-10-02 10:21 | Day surgery (SDC) | payer OTHER, SELFPAY ==
--- NOTE | 2023-09-29 12:15 | P.CONAN_ITS ---
Documented by User: Minerva Christiansen NP 09/29/23 12:17 HPI - Anesthesia Eval Consult details Narrative: 63yo M for Colonoscopy Stable CAD with hx STEMI >2 years ago. Follows [facility] cardiology yearly. Last visit 10/2022. [facility] Active Problems Active Problems: All Active Problems (Updated 08/30/23 @ 13:03 by Ramo Puentes CNP) Stented coronary artery (Acute) Sleep apnea (Acute) Retrograde ejaculation (Acute) Hyperlipidemia (Acute) Diabetes (Acute) Essential hypertension (Acute) Coronary artery disease (Acute) Immunization counseling (Acute) Elevated liver enzymes (Acute) Low HDL (under 40) (Acute) Mild anemia (Acute) Screening for prostate cancer (Acute) Screening for colon cancer (Acute) Adult general medical exam (Acute) HIV positive (Acute) Laboratory exam ordered as part of routine general medical examination (Acute) Past Medical History Medical History (Updated 10/02/23 @ 10:55 by Loni Akers RN) Sleep apnea HIV (human immunodeficiency virus infection) Fatty liver Coronary artery disease Hyperlipidemia Essential hypertension Diabetes Surgical History Surgical History (Updated 10/02/23 @ 10:51 by Loni Akers, JING) Hx of shoulder surgery H/O colonoscopy Stented coronary artery History of biopsy Social History Social History Housing: House Alcohol intake: never Patient Tobacco Use Status: Never used Tobacco e-Cigarette/Vaping Use: Never Used Second Hand Smoke Exposure: No Use of substances other than those prescribed or required for medical reasons: No Are you DNR?: No Advance Directives: No Advance Directives Information Provided: Yes service: Yes Current occupational status: employed 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 Current occupational exposures/hazards: No Cognitive needs: No Hearing needs: No Vision needs: Yes (reading glasses) Meds Allergies Allergy/AdvReac Type Severity Reaction Status Date / Time lisinopril AdvReac Intermediate Dry cough Verified 10/02/23 10:51 Home Medications Medication Instructions Recorded Confirmed Last Taken Type loratadine 10 mg tablet 10 mg PO DAILY 11/15/21 10/02/23 Unknown History metoprolol succinate 50 mg 50 mg PO BEDTIME 10/02/23 10/02/23 Unknown History tablet,extended release 24 hr Exam Pertinent Lab Results Pertinent Lab Results: Laboratory Tests 06/30/23 13:21 WBC 6.8 Hgb 14.8 Hct 45.4 Plt Count 273 Sodium 141 Potassium 4.3 Chloride 106 Carbon Dioxide 22 BUN 17 H Creatinine 0.86 Assessment and Plan Assessment Anesthesia Assessment: Chart Reviewed Documented by User: Piper Harvey MD 10/02/23 11:12 [facility] Past Medical History Medical History (Updated 10/02/23 @ 10:55 by Loni Akers RN) Sleep apnea HIV (human immunodeficiency virus infection) Fatty liver Coronary artery disease Hyperlipidemia Essential hypertension Diabetes Family History Family history of problems with anesthesia: No Surgical History Surgical History (Updated 10/02/23 @ 10:51 by Loni Akers RN) Hx of shoulder surgery H/O colonoscopy Stented coronary artery History of biopsy History of Problems with Anesthesia: No Social History Social History Housing: House Alcohol intake: never Patient Tobacco Use Status: Never used Tobacco e-Cigarette/Vaping Use: Never Used Second Hand Smoke Exposure: No Use of substances other than those prescribed or required for medical reasons: No Are you DNR?: No Advance Directives: No Advance Directives Information Provided: Yes service: Yes Current occupational status: employed 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 Current occupational exposures/hazards: No Cognitive needs: No Hearing needs: No Vision needs: Yes (reading glasses) Meds Allergies Allergy/AdvReac Type Severity Reaction Status Date / Time lisinopril AdvReac Intermediate Dry cough Verified 10/02/23 10:51 Home Medications Medication Instructions Recorded Confirmed Last Taken Type loratadine 10 mg tablet 10 mg PO DAILY 11/15/21 10/02/23 Unknown History metoprolol succinate 50 mg 50 mg PO BEDTIME 10/02/23 10/02/23 Unknown History tablet,extended release 24 hr Exam Airway Mallampati Class: II TM Dist: >3cm Neck ROM: Full Heart: rrr Lungs: cta Assessment and Plan Assessment Anesthesia Assessment: Anesthesia Plan Discussed Final Anesthetic Review Family History of Problems with Anesthesia: No History of Problems with Anesthesia: No NPO: Yes ASA Class: III Final Preanesthetic Review: No Changes in Pt Med Stat, Meds/Allgs Chart Reviewed and Consent Obtained/Reviewed Patient Risk: Intermediate Procedure Risk: Intermediate Anesthetic Plan Anesthetic Plan: MAC: Disposition: Standard PACU
[2023-10-02 10:56] VITALS: BMI 29.1
[2023-10-02 11:11] VITALS: BP 150/89; PULSE 53; RESP 16; TEMP 36.3; O2SAT 95
[2023-10-02] MEDS: Lactated Ringers 1,000 ML 100 ML IVCONT (11:19)
[2023-10-02 11:26] LABS: Glucose, Whole Blood 117 mg/dL (60-115)
--- NOTE | 2023-10-02 11:27 | MHC.SHP ---
Pre-Procedural Eval Section A Date of Service: 10/02/23 The patient is an INPATIENT: No The History & Physical has been completed within 30 days and I have reviewed it.: No Section B Chief Complaint: Surveillance for colon polyps Relevant Family History (Specify if Yes): No Relevant Social History: None Present Medications: see Short Stay Collaborative assessment Medical History: Significant History (Coronary artery disease Diabetes Essential hypertension Hyperlipidemia) History of Previous Operations: Relevant previous surgery/procedure and date(s) (History of biopsy Stented coronary artery) Allergies: Allergies Allergy/AdvReac Type Severity Reaction Status Date / Time lisinopril AdvReac Intermediate Dry cough Verified 10/02/23 10:51 Review of Systems Sugical H&P ROS: Negative: Constitution, Cardiovascular, Respiratory and Gastrointestinal Exam Surgical H&P Exam: Normal: Heart, Normal: Lungs, Normal: Extremities and Normal: Abdomen Plan Diagnosis/Plan: Unchanged I have reviewed the history and physical and performed a pertinent physical examination on my patient. No changes have occurred unless specified. Time Spent With Patient Time: Total time managing care of this patient today ____ minutes.
--- NOTE | 2023-10-02 11:32 | W.PM.OPN ---
Operative Note Operative Note Date of Service: 10/02/23 Narrative: COLONOSCOPY TILL CECUM WITH SNARE POLYPECTOMY Pre-op diagnosis: Surveillance for colon polyps Post-op diagnosis:? Colon polyps, diverticulosis, hemorrhoids Endoscopist:? Tommy Whyte MD Anesthesia:?MAC Consent: Indications for the procedure and potential complications of bleeding, perforation, reaction to medications and missed diagnosis were discussed with the patient and informed consent was obtained. Instrument: Olympus PCF H 190 L variable stiffness pediatric colonoscope Monitoring: Vital signs and clinical assessment, intermittent blood pressure monitoring, continuous EKG monitoring, Pulse oximetry and Carbon Dioxide monitoring were done throughout the procedure. Please see anesthesia flowsheet. Colon withdrawl time was 21 minutes. Procedure: The patient was placed in the left lateral decubitis position and pre-procedure medications were administered. After a digital rectal examination of the ano-rectum, the video colonoscope was inserted into the rectum and advanced through the colon to the cecum. The colonoscope was slowly withdrawn in a retrograde panoramic fashion and the colon mucosa was carefully examined including a retroflexed view of the rectum. Findings and interventions are described below. Procedure Difficulty: Without difficulty Findings: Terminal Ileum: Not evaluated Cecum: Normal Ascending Colon: Normal Transverse Colon: Normal Descending Colon: Moderate diverticulosis Sigmoid Colon: One 7- 8 mm sessile polyp - removed with a cold snare Moderate diverticulosis Rectum: Normal Ano-rectum: Moderate internal hemorrhoids and perianal skin tags Colon preparation: Good after copious irrigation Impression and Post Procedure Diagnosis: Colonoscopy Findings: One small polyp removed Moderate diverticulosis seen in the left colon Moderate hemorrhoids on retroflexed exam. Plan: Await pathology results Patient has an appointment on 10/16/23 in the GI Clinic with FREYA Silver. Repeat Colonoscopy interval based on path results - in 5 years if polyps are adenomatous and due to a history of colon polyps. Above findings were reviewed with the patient and colon polyps and diverticulosis handouts were given in the discharge area
[2023-10-02 12:17] VITALS: BP 98/57; PULSE 45; RESP 16; TEMP 36.6; O2SAT 95
[2023-10-02 12:32] VITALS: BP 118/75; PULSE 43; RESP 18; O2SAT 95
[2023-10-02 12:47] VITALS: BP 124/75; PULSE 52; RESP 18; TEMP 36.3; O2SAT 97
--- NOTE | 2023-10-02 12:57 | PC.NURSE ---
Awaiting corrected anes record from Dr Harvey. Record with errors was pulled off chart and set aside for anesthesia to review prior to reprinting.
== END 2023-10-02 13:10 | disposition home or self-care (01) ==
PROVIDERS: PCP Family Medicine; Visit Provider Internal Medicine Gastroenterology
PROC: 0DJD8ZZ Inspection of Lower Intestinal Tract, Via Natural or Artificial Opening Endoscopic (ICD-10-PCS; CPT 45378; principal; 2023-10-02 11:50)
DX: Z12.11 Encounter for screening for malignant neoplasm of colon (principal); Z86.010 Personal history of colon polyps; D12.5 Benign neoplasm of sigmoid colon; K57.30 Diverticulosis of large intestine without perforation or abscess without bleeding; K64.8 Other hemorrhoids; K64.4 Residual hemorrhoidal skin tags; I25.10 Atherosclerotic heart disease of native coronary artery without angina pectoris; I25.2 Old myocardial infarction; I10 Essential (primary) hypertension; Z95.5 Presence of coronary angioplasty implant and graft; E78.5 Hyperlipidemia, unspecified; B20 Human immunodeficiency virus [HIV] disease; E11.9 Type 2 diabetes mellitus without complications; G47.30 Sleep apnea, unspecified; R74.8 Abnormal levels of other serum enzymes; Z79.899 Other long term (current) drug therapy; Z79.82 Long term (current) use of aspirin; Z88.8 Allergy status to other drugs, medicaments and biological substances
CPT/HCPCS: 45385; 82947; 88305; J2704

== ENCOUNTER → 2023-10-02 10:21 | Outpatient (BNV) | payer OTHER, SELFPAY | PROVIDERS: PCP Family Medicine; Visit Provider Internal Medicine Gastroenterology | DX: Z12.11 Encounter for screening for malignant neoplasm of colon (principal); Z86.010 Personal history of colon polyps; D12.5 Benign neoplasm of sigmoid colon; K57.90 Diverticulosis of intestine, part unspecified, without perforation or abscess without bleeding | CPT/HCPCS: 45385 ==

== ENCOUNTER 2023-11-06 13:32 | Outpatient (REF) | payer OTHER, SELFPAY | END 2023-11-06 13:33 | disposition home or self-care (01) | LOC: HO.LAB 13:32 | PROVIDERS: PCP Family Medicine; Visit Provider Family Medicine | DX: Z13.89 Encounter for screening for other disorder (principal) ==

== ENCOUNTER 2023-11-13 11:49 | Outpatient (REF) | payer OTHER, SELFPAY ==
[2023-11-13 14:27] LABS: Alanine Aminotransferase 35 U/L (0-40); Albumin Level 4.7 g/dL (3.5-5.0); Alkaline Phosphatase 74 U/L (39-117); Anion Gap 12 (12-20); Aspartate Amino Transferase 28 U/L (5-37); Blood Urea Nitrogen 21 mg/dL (9-16); Carbon Dioxide 27 mmol/L (22-29); Chloride 107 mmol/L (96-108); Estimated Glomerular Filt Rate > 60; Glucose Fasting 119 mg/dL (60-99); Potassium 4.2 mmol/L (3.3-5.1); Sodium 142 mmol/L (135-145); Total Protein 7.6 g/dL (6.5-8.0)
[2023-11-13 14:30] LABS: Cholesterol 85 mg/dL (<200); HDL Cholesterol 25 mg/dL (>40); LDL Cholesterol Calculated 44 mg/dL (<100); Triglycerides 83 mg/dL (<150)
[2023-11-14 16:09] LABS: CRP High Sensitivity 0.4 mg/L
== END 2023-11-13 11:50 | disposition home or self-care (01) ==
LOC: HO.LAB 11:49
PROVIDERS: Internal Medicine Cardiovascular Disease; PCP Family Medicine; Visit Provider Nurse Practitioner Family
DX: Z00.00 Encounter for general adult medical examination without abnormal findings (principal); I25.10 Atherosclerotic heart disease of native coronary artery without angina pectoris; I10 Essential (primary) hypertension; D21.6 Benign neoplasm of connective and other soft tissue of trunk, unspecified; K57.90 Diverticulosis of intestine, part unspecified, without perforation or abscess without bleeding; K64.9 Unspecified hemorrhoids; Z98.890 Other specified postprocedural states
CPT/HCPCS: 36415; 80053; 80061; 86141; 93005

== ENCOUNTER 2023-11-13 11:49 | Outpatient (AMB) | payer OTHER, SELFPAY ==
--- NOTE | 2023-11-13 11:58 | A.OFFVIS_ITS ---
Intake Vital Signs 11/13/23 12:00 Height 5 ft 8 in Weight 189 lb 9.561 oz BMI 28.8 BP 119/69 Blood Pressure Location Rt brachial Position Sitting Pulse 56 Intake Visit Reasons: Follow Up Colonoscopy Intake Note: Patient presents to in office visit today in follow up of colonoscopy. CC: Patient underwent colonoscopy with Dr. Whyte on 10/02/23. Patient reports doing well and denies having any GI sympomts today. Allergies lisinopril Adverse Reaction (Intermediate, Verified 11/13/23 12:01) Dry cough HPI Follow Up Colonoscopy HPI Details LAST VISIT Screening for colon cancer Patient denies any GI, cardiac or respiratory symptoms. History of CAD, seen by tobacco stripper in October. Patient had normal echo, normal EKG. On daily aspirin. Patient has a follow-up with tobacco stripper in 1 year.? Denies any issues with anesthesia in the past.? Denies any history of sleep apnea.? Diagnosed with HIV in 1997 on medications currently.? History of polyps on 1st colonoscopy at age 52. His 2nd colonoscopy was at age 57. Both were performed at [facility].? Patient denies melena, hematochezia, unintentional weight loss or ribbon like stools.? Discussed at length the pre-procedure,? prep, diet & medications as well as what to expect prior, during and after the procedure.?? Stressed the importance of good bowel prep. ?Recommended the use of Vaseline or Calmoseptine OTC & baby wipes with bowel movements to promote comfort.? ?Patient verbalizes understanding and agrees to plan of care.? He was given the opportunity to ask questions and all questions answered.? We will see him after the procedure.? Plan Medications New bisacodyl (Dulcolax (bisacodyl)) take 2 tabs at noon the day before your colonoscopy 10 mg (2 x 5 mg) PO ONCE 2 tabs 0RF 1 day Z12.11 polyethylene glycol 3350 (Miralax) As directed by gastroenterology department at [facility] 238 grams PO ONCE 238 grams 0RF Z12.11 Discontinued ezetimibe Discontinued Reason: Duplicate 10 mg PO DAILY 30 tabs 5RF COLONOSCOPY Findings: Terminal Ileum: Not evaluated Cecum: Normal Ascending Colon: Normal Transverse Colon: Normal Descending Colon: Moderate diverticulosis Sigmoid Colon: One 7- 8 mm sessile polyp - removed with a cold snare Moderate diverticulosis Rectum: Normal Ano-rectum: Moderate internal hemorrhoids and perianal skin tags Colon preparation: Good after copious irrigation Impression and Post Procedure Diagnosis: Colonoscopy Findings: One small polyp removed Moderate diverticulosis seen in the left colon Moderate hemorrhoids on retroflexed exam. Plan: Repeat Colonoscopy interval based on path results - in 5 years if polyps are adenomatous and due to a history of colon polyps. PATHOLOGY RESULTS Diagnosis Colon, sigmoid, polypectomy: Tubular adenoma; negative for high-grade dysplasia or carcinoma TODAY'S VISIT: Patient is here today for follow-up and to discuss colonoscopy results. Patient denies any ill effects from the prep, anesthesia or procedure itself. Tubular adenoma found without high-grade dysplasia or carcinoma, recommendation was made to repeat colonoscopy in 5 years. Patient denies melena, hematochezia, unintentional weight loss or ribbon like stools. Admits to having constipation. Patient states that he took senna in the past and it was working for him and he will like to try that again. Patient denies dyspepsia, dysphagia or odynophagia. Denies any other GI concerning symptoms. [facility] Medical History (Updated 11/13/23 @ 17:01 by Yareli Brothers [facility]) Diverticulosis Tubular adenoma of colon Sleep apnea HIV (human immunodeficiency virus infection) Fatty liver Coronary artery disease Hyperlipidemia Essential hypertension Diabetes Surgical History (Updated 11/13/23 @ 12:57 by Doug Alarcon MD) Stented coronary artery Hx of shoulder surgery H/O colonoscopy History of biopsy Social History Housing: House Alcohol intake: never Patient Tobacco Use Status: Never used Tobacco e-Cigarette/Vaping Use: Never Used Second Hand Smoke Exposure: No service: Yes Current occupational status: employed 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 Current occupational exposures/hazards: No Cognitive needs: No Hearing needs: No Vision needs: Yes (reading glasses) Review of Systems Const Denies weight gain and Denies weight loss ENT Reports no additional complaints, Denies dysphagia and Denies odynophagia Card Reports no additional complaints Resp Reports no additional complaints GI Denies abdominal pain, Denies belching, Denies melena, Denies bloating, Denies change in bowel habits, Reports constipation, Denies dysphagia, Denies excessive flatus, Denies dyspepsia, Denies heartburn, Denies diarrhea, Denies loose stools, Denies nausea, Denies odynophagia and Denies vomiting Reports no additional complaints Musc Reports no additional complaints Neuro Reports no additional complaints Psych Reports no additional complaints Endo Reports no additional complaints Physical Exam Vital Signs: Last Vital Signs Pulse 56 11/13/23 12:00 BP 119/69 11/13/23 12:00 BMI result Body Mass Index 28.8 Const General: healthy appearing, no acute distress and well developed Nutritional Appearance: well nourished Orientation/consciousness: patient oriented x3 Resp Effort & Inspection: normal respiratory effort, able to speak in complete sentences, no tracheal deviation and symmetric chest movement Auscultation: clear to auscultation bilaterally Cardio Rate: regular rate GI Inspection: Yes normal to inspection and No distended Palpation (GI): Soft to palpation, not firm, nontender and No hepatosplenomegaly present Auscultation: normal bowel sounds General: Yes no CVA tenderness Back/Spine/Pelvis Back: no CVA tenderness Skin General skin exam: elasticity normal, turgor normal and dry skin Neuro General: patient oriented x3 Psych Appearance: grossly normal Mental Status: mental status grossly normal Assessment & Plan Assessment & Plan (1) Tubular adenoma of colon: Code(s): D12.6 - Benign neoplasm of colon, unspecified (2) Diverticulosis: Code(s): K57.90 - Diverticulosis of intestine, part unspecified, without perforation or abscess without bleeding (3) Hemorrhoids without complication: Code(s): K64.9 - Unspecified hemorrhoids (4) Status post colonoscopy: Code(s): Z98.890 - Other specified postprocedural states Plan Patient will start taking senna daily. He will call our office if he will continue to be constipated. Tubular adenoma without high-grade dysplasia or carcinoma found. Patient will repeat colonoscopy in 5 years, sooner if clinically necessary. Discussed with patient high-fiber diet, moderate diverticulosis seen on colonoscopy. Stressed the importance of trying to take [id number] probiotic. I will see patient in 6 months, sooner on as needed basis. Patient is agreeable to this plan and verbalizes understanding of instructions. He was given the opportunity to ask questions and all questions answered. Thank you for allowing me to participate in his care Medications: New sennosides (Natural Senna Laxative) 17.2 mg (2 x 8.6 mg) PO BEDTIME 180 tabs 3RF constipation K59.00 - Constipation, unspecified Coding Level of Care Code Est Pt Level 3 (04972) Diagnoses Tubular adenoma of colon D12.6 Diverticulosis K57.90 Hemorrhoids without complication K64.9 Status post colonoscopy Z98.890 Time Spent (min) 30 Comment 20 minutes spent with patient and additional 10 minutes spent reviewing his records
[2023-11-13 12:00] VITALS: BP 119/69; PULSE 56; BMI 28.8
== END 2023-11-13 12:27 | disposition home or self-care (01) ==
PROVIDERS: PCP Family Medicine; Visit Provider Nurse Practitioner Family
DX: D12.6 Benign neoplasm of colon, unspecified (principal); K57.90 Diverticulosis of intestine, part unspecified, without perforation or abscess without bleeding; K64.9 Unspecified hemorrhoids; Z98.890 Other specified postprocedural states
CPT/HCPCS: 99213

== ENCOUNTER 2023-11-13 11:49 | Outpatient (AMB) | payer OTHER, SELFPAY ==
--- NOTE | 2023-11-13 12:34 | A.OFFVIS_ITS ---
Intake Vital Signs 11/13/23 12:35 Height 5 ft 8 in Weight 187 lb 6.287 oz BMI 28.5 BP 120/72 Blood Pressure Location Lt brachial Position Sitting Pulse 55 Intake Visit Reasons: 1Y follow up Intake Note: 1 year follow-up with ekg feeling good Hand Fur Cleaner Required: No Allergies lisinopril Adverse Reaction (Intermediate, Verified 11/13/23 12:01) Dry cough Medication List - Last Reconciled 11/13/23 by Doug Alarcon MD amlodipine 10 mg PO DAILY 90 days ascorbate calcium (vitamin C) 1,000 mg PO DAILY aspirin 81 mg PO DAILY 90 days nohmjarnm-pklskcvi-lzjqjnu ala 50-200-25 mg (Biktarvy) 1 tab PO DAILY 90 days coenzyme Q10 (Co Q-10) 100 mg PO DAILY empagliflozin (Jardiance) 10 mg PO QAM 30 days ezetimibe (Zetia) 10 mg PO DAILY 90 days loratadine 10 mg PO DAILY losartan 50 mg PO DAILY 90 days metformin 250 mg pm and 500 mg am orally 2 times a day; metoprolol succinate ER 50 mg PO BEDTIME omega-3 fatty acids 500 mg PO BID 90 days omeprazole 20 mg PO BID 90 days rosuvastatin 20 mg PO BEDTIME 90 days sennosides (Natural Senna Laxative) 17.2 mg (2 x 8.6 mg) PO BEDTIME tamsulosin 0.4 mg PO BEDTIME HPI HPI Comments History of Present Illness Details Cam comes for follow-up. He has been doing very well from cardiac perspective. Regularly exercises. 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 He denies any exertional chest pain or shortness of breath. Takes all his medications. Blood pressure is well controlled. Denies any heart failure symptoms, claudications. No prolonged palpitation irregular heartbeat. No lightheadedness, syncope. 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 Current occupational exposures/hazards: No Cognitive needs: No Hearing needs: No Vision needs: Yes (reading glasses) Review of Systems Const Denies chills, Denies fatigue, Denies fever(s), Denies frequent falls, Denies weakness, Denies weight gain and Denies weight loss ENT Denies dizziness Card Denies chest pain, Denies leg edema, Denies lightheadedness, Denies palpitations, Denies dyspnea, Denies dyspnea on exertion, Denies orthopnea and Denies other (loss of consciousness) Resp Denies cough, Denies dyspnea and Denies dyspnea on exertion GI Denies hematochezia and Denies change in stool character Musc Denies abnormal gait, Denies muscle weakness, Denies numbness, Denies radiating pain into limb and Denies tingling Neuro Denies Abnormal speech present, Denies abnormal gait, Denies dizziness, Denies frequent falls, Denies numbness, Denies tingling and Denies weakness Endo Denies fatigue and Denies palpitations Physical Exam Vital Signs: Last Vital Signs Pulse 55 11/13/23 12:35 BP 120/72 11/13/23 12:35 BMI result Body Mass Index 28.5 Const General: cooperative, comfortable, no acute distress, alert, awake and Physically active Nutritional Appearance: average body habitus Orientation/consciousness: patient oriented x3 Limitations: no limitations Neck Neck: Yes trachea midline, Yes supple and Yes no JVD Chest Chest palpation & inspection: normal inspection of the chest Resp Effort & Inspection: normal respiratory effort Auscultation: clear to auscultation bilaterally Cardio Jugular venous distension: no JVD Palpation: normal PMI Rate: regular rate Rhythm: regular rhythm Heart sounds: S1 normal heart sound present, S2 normal heart sound present, no click, no gallops, no murmurs and no rubs Bruits: no carotid bruits GI Auscultation: normal bowel sounds Skin General skin exam: no rashes or lesions noted Neuro General: patient oriented x3 and no focal motor deficits Speech: No Abnormal speech present Extrem General: Yes no clubbing, cyanosis or edema Office Procedures EKG Details: EKG shows sinus bradycardia at 55 beats per minute otherwise normal EKG [id number], Complete Assessment & Plan Assessment & Plan (1) Coronary artery disease: Code(s): I25.10 - Atherosclerotic heart disease of [place] coronary artery without angina pectoris Plan: CAD status post stenting to the RCA for acute MD. No recurrent symptoms since then. Good functional capacity. 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 Continue low-dose aspirin therapy for life. Continue aggressive vascular risk factor modification. Follow-up lipid panel and CRP in near future. Target goal LDL closer to 50 mg/dL. Blood pressure is well optimized. Diabetes under your care with goal hemoglobin A1c less than 7%. (2) Essential hypertension: Code(s): I10 - Essential (primary) hypertension Plan: Hypertension which is currently well optimized advised to monitor blood pressure at home and maintain a log. Goal blood pressure less than 130/84. Importance of good medical therapy and compliance with medication was discussed. He understands agrees. Low-salt diet was discussed advised to maintain heart healthy lifestyle. Will follow up in the clinic in 1 year's time, sooner p.r.n.. Thank you for allowing me to partake in his care Orders: Orders Lipid Panel Today I25.10 - Atherosclerotic heart disease of [place] coronary artery without angina pectoris CRP High Sensitivity Today I25.10 - Atherosclerotic heart disease of [place] coronary artery without angina pectoris CA stress test Today I25.10 - Atherosclerotic heart disease of [place] coronary artery without angina pectoris Medications: Changed From metformin 250 mg a.m. and 500 mg p.m. orally 2 times a day; 90 days 135 tabs 3RF To metformin 250 mg pm and 500 mg am orally 2 times a day; Coding Level of Care Code Est Pt Level 4 (19748) Diagnoses Coronary artery disease I25.10 Essential hypertension I10 CPT Codes EKG - CPT: 06804-[id number], Complete ([id number])
[2023-11-13 12:35] VITALS: BP 120/72; PULSE 55; BMI 28.5
== END 2023-11-13 12:58 | disposition home or self-care (01) ==
PROVIDERS: Visit Provider Internal Medicine Cardiovascular Disease
DX: I25.10 Atherosclerotic heart disease of native coronary artery without angina pectoris (principal); I10 Essential (primary) hypertension
CPT/HCPCS: 93010; 99214

== ENCOUNTER 2023-12-04 14:20 | Outpatient (AMB) | payer OTHER, SELFPAY ==
--- NOTE | 2023-12-04 14:26 | MHC.PC.OV ---
Vital Signs 12/04/23 14:27 Height 5 ft 8 in Weight 189 lb 8 oz BMI 28.8 BP 136/77 Blood Pressure Location Lt brachial Position Sitting Pulse 66 Pulse Source Pulse Oximeter Pulse Oximetry (%) 95 Oxygen Delivery Method Room Air Intake Visit Reasons: f/u diabetes Intake Note: Patient is here to follow up on his diabetes. Allergies lisinopril Adverse Reaction (Intermediate, Verified 12/04/23 14:28) Dry cough Tobacco use date assessed: 12/04/23 HPI f/u diabetes HPI Details 63 y/o male presents to f/u diabetes. A1c today 12/04/23 6.7%. He is on metformin, Jardiance 10mg. Blood pressure today 136/77. He is on metoprolol 50mg, losartan 50mg. 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 1. Little interest or pleasure in doing things: not at all 2. Feeling down, depressed, or hopeless: not at all 3. Trouble falling or staying asleep, or sleeping too much: not at all 4. Feeling tired or having little energy: not at all 5. Poor appetite or overeating: not at all 6. Feeling bad about yourself - or that you are a failure or have let yourself or your family down: not at all 7. Trouble concentrating on things, such as reading the newspaper or watching television: not at all 8. Moving or speaking so slowly that other people could have noticed. Or the opposite - being so fidgety or restless that you have been moving around a lot more than usual: not at all 9. Thoughts that you would be better off or of hurting yourself in some way: not at all Total score: 0 Source: Developed by Drs. Brett Donnelly, Jyothi Madison, Darian Patterson and colleagues, with an educational ara from [employer]. Thrive Questionnaire Date Thrive assessed: 12/04/23 I am a: Patient What is your living situation today?: I have a steady place to live Within the past 12 months, did the food you bought not last and you didn't have the money to get more?: Never true Within the past 12 months, did you worry whether your food would run out before you got money to buy more?: Never true Do you have trouble paying for medicines?: No Do you have trouble getting transportation to medical appointments?: No Do you have trouble paying your heating and electricity bill?: No Do you have trouble taking care of your child, family member or friend?: No Do you have trouble with day-to-day activities such as bathing, preparing meals, shopping, managing finances, etc.?: No Are you currently unemployed and looking for a job?: No Are you interested in more education?: No THRIVE Score: 0 AUDIT C Alcohol Use Questionnaire (AUDIT-C) 1. How often do you have a drink containing alcohol?: Never 3. How often do you have six or more drinks on one occasion?: Never Total Score: 0 MONTSERRAT-7 AMB Questionnaire MONTSERRAT-7 Date MONTSERRAT - 7 assessed: 12/04/23 Feeling nervous, anxious, or on edge: 0 = Not at all Not being able to stop or control worryin = Not at all Worrying too much about different things: 0 = Not at all Trouble relaxin = Not at all Being so restless that it is hard to sit still: 0 = Not at all Becoming easily annoyed or irritable: 0 = Not at all Feeling afraid as if something awful might happen: 0 = Not at all Total MONTSERRAT-7 score (0-4 normal; 5-9 mild; 10-14 moderate; 15-21 severe): 0 Source: Developed by Lucian Worleyet B.W. Los, Darian Patterson and colleagues, with an educational ara from [employer]. Review of Systems Const Denies chills, Denies fatigue, Denies fever(s), Denies headache(s) and Denies weakness ENT Denies dizziness and Denies headache(s) Card Denies chest pain, Denies lightheadedness, Denies dyspnea and Denies other (Palpitations) Resp Denies cough, Denies dyspnea, Denies wheezing and Denies other ( shortness of breath) Musc Denies numbness and Denies tingling Neuro Denies dizziness, Denies headache(s), Denies numbness, Denies tingling, Denies paresthesias and Denies weakness Psych Denies anxiety and Denies depression Endo Denies fatigue Aller/Immun Denies wheezing Physical exam (Primary Care) Vital Signs: Last Vital Signs Pulse 66 12/04/23 14:27 BP 136/77 12/04/23 14:27 Pulse Ox 95 12/04/23 14:27 Oxygen Delivery Method Room Air 12/04/23 14:27 BMI result Body Mass Index 28.8 Tobacco/Smoking Status: Tobacco use Status Tobacco use date assessed 12/04/23 12/04/23 14:28 Patient Tobacco Use Status Never used Tobacco 12/04/23 14:27 e-Cigarette/Vaping Use Never Used 12/04/23 14:27 PHQ-9: PHQ-9 Score PHQ-9: Total score 0 12/04/23 14:56 Thrive Assessment: Date of Thrive Assessment Date Thrive assessed 12/04/23 12/04/23 14:34 Const General: no acute distress and well developed Nutritional Appearance: well nourished Orientation/consciousness: patient oriented x3 [facility] Head: Yes normocephalic and Yes atraumatic Eyes General: appearance normal, both eyes and all related structures Pupils: Equal, round and reactive pupils present EOM: EOMs intact bilaterally Resp Effort & Inspection: normal respiratory effort Auscultation: clear to auscultation bilaterally Cardio Rate: regular rate Rhythm: regular rhythm Heart sounds: S1 normal heart sound present, S2 normal heart sound present, no gallops, no murmurs and no rubs Neuro General: patient oriented x3 and gait normal Cranial nerves: Yes Equal, round and reactive pupils present Psych Affect: normal affect Results AMB Hemoglobin A1c AMB Hemoglobin A1c 6.7 % Last Edit by Deysi Oquendo CMA on 12/04/23 14:54 Results Reviewed Results Reviewed: Laboratory Last Values Hgb A1c (Clinic) 6.7 % (4.0-6.0) H 12/04/23 14:52 Assessment and Plan Assessment & Plan (1) Diabetes: Code(s): E11.9 - Type 2 diabetes mellitus without complications Plan: A1c?6.7%?is?good?control.??Goal?is?less?than?7% Continue?current?medication?regimen Continue?diabetic?diet Had?diabetic?eye?exam?in?August.??Up-to-date (2) Essential hypertension: Code(s): I10 - Essential (primary) hypertension Plan: Blood?pressure?is?slightly?above?goal?of?less?than?130/80 Blood?pressures?have?been?well?controlled?in?the?recent?past. No?change?to?his?medication?today Advised?working?on?diet,?exercise?and?some?weight?loss?as?he?gained?a?few?lbs. Watch?salt/sodium (3) Fatigue: Code(s): R53.83 - Other fatigue Plan: Mild?fatigue He?does?have?sleep?apnea?and?has?started?using?a?CPAP?though?he?is?having?some?difficulties?and?will?follow-up?with?sleep?medicine?about?this. Will?also?check?his?testosterone?levels. Orders: Orders Prostate Specific Antigen Scr Today Z12.5 - Encounter for screening for malignant neoplasm of prostate Basic Metabolic Panel Fasting Today R53.83 - Other fatigue AMB Hemoglobin A1c Today Z13.9 - Encounter for screening, unspecified Testosterone, Free/Total Today R53.83 - Other fatigue Coding Level of Care Code Est Pt Level 4 (57458) Diagnoses Diabetes E11.9 Essential hypertension I10 Fatigue R53.83
[2023-12-04 14:27] VITALS: BP 136/77; PULSE 66; O2SAT 95; BMI 28.8
== END 2023-12-04 15:07 | disposition home or self-care (01) ==
PROVIDERS: PCP Family Medicine; Visit Provider Family Medicine
DX: E11.9 Type 2 diabetes mellitus without complications (principal); I10 Essential (primary) hypertension; R53.83 Other fatigue
CPT/HCPCS: 83036; 99214

== ENCOUNTER → 2023-12-11 10:17 | Outpatient (REF) | payer OTHER, SELFPAY ==
--- NOTE | 2023-12-11 10:19 | CA_ITS ---
Acquisition Time: 2023-12-11 11:02:00 Total Exercise Time: 00:10:28 Test Indications: CAD Medications: SEE H Protocol: BHAVNA Max HR: 136 BPM 85% of Pred: 159 BPM Max BP: 160/078 mmHG Max Work Load: 12.5 METS Exercise stress test exercise 10 min 28 sec of Bhavna protocol achieving 85% MPHR, without anginal symptoms, without arrhythmais, with normotensive repsonse to exercise, without EKG changes. Test reviewed with Dr. Wu Referred By: Doug Alarcon Overread By: Nena Wright
== END ==
LOC: HO.CARD 10:17
PROVIDERS: PCP Family Medicine; Visit Provider Internal Medicine Cardiovascular Disease
DX: I25.10 Atherosclerotic heart disease of native coronary artery without angina pectoris (principal)
CPT/HCPCS: 93017

== ENCOUNTER → 2023-12-11 10:19 | Outpatient (BNV) | payer OTHER, SELFPAY | PROVIDERS: PCP Family Medicine; Visit Provider Nurse Practitioner | DX: I25.10 Atherosclerotic heart disease of native coronary artery without angina pectoris (principal) | CPT/HCPCS: 93016; 93018 ==

== ENCOUNTER 2023-12-25 11:28 | Outpatient (AMB) | payer OTHER, SELFPAY ==
--- NOTE | 2023-12-25 11:32 | MHC.OFFVIS ---
Intake Vital Signs 12/25/23 11:39 Height 5 ft 6 in Weight 187 lb 2 oz BMI 30.2 BP 132/70 Blood Pressure Location Rt brachial Position Sitting Pulse 55 Pulse Source Pulse Oximeter Pulse Oximetry (%) 96 Oxygen Delivery Method Room Air Intake Visit Reasons: 4 mnts f/u appt-LVM Intake Note: Patient presents for 4 month f/u. dry mouth during the night while using mask, machine company wants him to check with provider if he will need a full face mask Allergies lisinopril Adverse Reaction (Intermediate, Verified 12/25/23 11:38) Dry cough HPI HPI Comments History of Present Illness Details 63 y/o male patient presents for follow up of sleep study. The PSG sleep study result was significant for a mild degree of sleep apnea. The AHI was 6/hr and oxygen herber was 83%. Pt stated APAP [id number]. The CPAP compliance and therapy response (11/25/23-12/24/23) reviewed. The usage days 94% and the average usage hours 6 hrs. The max pressure was 12.5 and the residual AHI was 0.8/hr. Pt reports he sleeps well with CPAP, and feel rested. He uses nasal mask, but his mouth gets very dry. He also got a message from [facility] to try full face mask. 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 Current occupational exposures/hazards: No Cognitive needs: No Hearing needs: No Vision needs: Yes (reading glasses) Review of Systems Const All systems reviewed & are unremarkable except as noted in HPI and below ENT Reports Normal hearing present Neuro Reports Normal hearing present Physical Exam Vital Signs: Last Vital Signs Pulse 55 12/25/23 11:39 BP 132/70 12/25/23 11:39 Pulse Ox 96 12/25/23 11:39 Oxygen Delivery Method Room Air 12/25/23 11:39 BMI result Body Mass Index 30.2 Const General: cooperative Nutritional Appearance: overweight Orientation/consciousness: patient oriented x3 Neck Neck: Yes full ROM and Yes supple Resp Effort & Inspection: normal respiratory effort and able to speak in complete sentences Neuro General: patient oriented x3, gait normal and moves all extremities Cranial nerves: Yes Bilaterally intact EOM present, Yes Normal facial strength present, Yes Midline tongue present, Yes Symmetric palate elevation present, Yes Normal hearing present, Yes Ability to bilaterally rotate head present and Yes Ability to bilaterally elevate shoulders present Cognition (Neuro): normal cognition Gait exam (Neuro): Normal gait present Motor exam (neuro): 5/5 motor strength present throughout, Pronator motor function not present and no tremor noted Psych Appearance: grossly normal Mental Status: mental status grossly normal Speech and movement: Normal speech and movement present Affect: normal affect Attitude: cooperative Assessment & Plan Assessment & Plan (1) Sleep apnea: Comment: Mild degree of sleep apnea. The AHI was 6/hr and oxygen herber was 84%. Code(s): G47.30 - Sleep apnea, unspecified Plan New mask fitting prescription given to patient. Advised patient to continue to use APAP [id number] as patient experiences good clinical effects, rested sleep and daytime tiredness has improved. Stressed compliance, use CPAP nightly and more than 4 hrs. Coding Level of Care Code Est Pt Level 3 (17787) Diagnoses Sleep apnea G47.30
[2023-12-25 11:39] VITALS: BP 132/70; PULSE 55; O2SAT 96; BMI 30.2
== END 2023-12-25 11:54 | disposition home or self-care (01) ==
PROVIDERS: PCP Family Medicine; Visit Provider Nurse Practitioner Family
DX: G47.30 Sleep apnea, unspecified (principal)
CPT/HCPCS: 99213

== ENCOUNTER → 2023-12-25 11:28 | Outpatient (BNVA) | payer OTHER, SELFPAY | PROVIDERS: PCP Family Medicine; Visit Provider Nurse Practitioner Family ==

== ENCOUNTER 2023-12-29 17:01 | Outpatient (REF) | payer OTHER, SELFPAY ==
[2023-12-29 18:06] LABS: Anion Gap 16 (12-20); Blood Urea Nitrogen 14 mg/dL (9-16); Calcium 9.4 mg/dL (8.4-10.2); Carbon Dioxide 25 mmol/L (22-29); Chloride 108 mmol/L (96-108); Estimated Glomerular Filt Rate > 60; Glucose Fasting 98 mg/dL (60-99); Potassium 3.8 mmol/L (3.3-5.1); Sodium 145 mmol/L (135-145)
[2023-12-29 18:21] LABS: Prostate Specific Antigen Scr 0.18 ng/mL (<0.05-4.0)
[2023-12-30 03:38] LABS: Syphilis Screen Nonreactive (Nonreactive)
[2024-01-01 11:14] LABS: Absolute CD3 Count 2062 cells/uL (840-3060); Absolute CD4 Count 1267 cells/uL (490-1740); Absolute CD8 Count 837 cells/uL (180-1170); Absolute Lymphocytes 2762 cells/uL (850-3900); CD4 CD8 Ratio 1.51 (0.86-5.00); Percent CD3 Cells 75 % (57-85); Percent CD4 Cells 46 % (30-61); Percent CD8 Cells 30 % (12-42)
[2024-01-02 16:23] LABS: HIV RNA PCR Qn Copies NOT DETECTED copies/mL (NOT DETECTED); HIV RNA PCR Qn Log Copies NOT DETECTED (NOT DETECTED)
[2024-01-03 14:34] LABS: Testosterone, Free 70.3 pg/mL (35.0-155.0); Testosterone, Total 303 ng/dL (250-1100)
== END 2023-12-29 17:02 | disposition home or self-care (01) ==
LOC: HO.LAB 17:01
PROVIDERS: PCP Family Medicine; Visit Provider Internal Medicine
DX: Z12.5 Encounter for screening for malignant neoplasm of prostate (principal); Z21 Asymptomatic human immunodeficiency virus [HIV] infection status; R53.83 Other fatigue
CPT/HCPCS: 36415; 80048; 84153; 84402; 84403; 86359; 86360; 86780; 87536

== ENCOUNTER 2024-01-05 15:24 | Outpatient (AMB) | payer OTHER, SELFPAY ==
[2024-01-05 15:25] VITALS: PULSE 79; O2SAT 99; BMI 30.7
--- NOTE | 2024-01-05 15:25 | MHC.OFFVIS ---
Intake Vital Signs 01/05/24 15:25 Height 5 ft 6 in Weight 190 lb BMI 30.7 Pulse 79 Pulse Source Pulse Oximeter Pulse Oximetry (%) 99 Intake Visit Reasons: f/u 6 mth,lab Allergies lisinopril Adverse Reaction (Intermediate, Verified 01/05/24 15:28) Dry cough HPI f/u 6 mth,lab HPI Details He has CD4 count of 1267 and viral load undetectable on 12/28. He feels well He has RPR negative. 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 Current occupational exposures/hazards: No Cognitive needs: No Hearing needs: No Vision needs: Yes (reading glasses) Review of Systems Const All systems reviewed & are unremarkable except as noted in HPI and below Physical Exam Vital Signs: Last Vital Signs Pulse 79 01/05/24 15:25 Pulse Ox 99 01/05/24 15:25 BMI result Body Mass Index 30.7 Const General: cooperative Orientation/consciousness: patient oriented x3 HEENT Head: Yes normal to inspection Mouth: Normal oral and palatal mucosa present Eyes General: appearance normal, both eyes and all related structures Pupils: Equal, round and reactive pupils present Resp Effort & Inspection: normal respiratory effort Cardio Rate: regular rate Rhythm: regular rhythm GI Palpation (GI): Soft to palpation and nontender General: Yes no CVA tenderness Back/Spine/Pelvis Back: no CVA tenderness Skin General skin exam: no rashes or lesions noted Neuro General: patient oriented x3 Cranial nerves: Yes CN's II-XII intact bilaterally and Yes Equal, round and reactive pupils present Extrem General: Yes normal to inspection Psych Appearance: grossly normal Assessment & Plan Assessment & Plan (1) HIV positive: Comment: He is doing well. He takes Biktarvy daily. His viral load undetectable and CD4 count appropriate. Code(s): Z21 - Asymptomatic human immunodeficiency virus [HIV] infection status Plan: See in six months. Medication renewed and check labs before visit. Orders: Orders Lymphocyte Subset Panel 3 5 Months Z21 - Asymptomatic human immunodeficiency virus [HIV] infection status HIV-1 RNA QN PCR Expanded 5 Months Z21 - Asymptomatic human immunodeficiency virus [HIV] infection status Medications: Changed From prsfepoiv-flpezfus-nnxkloi ala 50-200-25 mg (Biktarvy) 1 tab PO DAILY 90 days 90 tabs 1RF To tlgomyurv-bkroapcp-jbbgdbl ala 50-200-25 mg (Biktarvy) 1 tab PO DAILY 30 tabs 5RF 30 days Coding Level of Care Code Est Pt Level 3 (48632) Diagnoses HIV positive Z21
== END 2024-01-05 15:40 | disposition home or self-care (01) ==
LOC: HO.HID 15:24
PROVIDERS: PCP Family Medicine; Visit Provider Internal Medicine
DX: Z21 Asymptomatic human immunodeficiency virus [HIV] infection status (principal)
CPT/HCPCS: 99213

== ENCOUNTER → 2024-01-05 15:24 | Outpatient (BNVA) | payer OTHER, SELFPAY | PROVIDERS: PCP Family Medicine; Visit Provider Internal Medicine ==

== ENCOUNTER 2024-03-18 15:55 | Outpatient (AMB) | payer OTHER, SELFPAY ==
--- NOTE | 2024-03-18 16:00 | MHC.PC.OV ---
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 Allergies lisinopril Adverse Reaction (Intermediate, Verified 03/18/24 16:01) Dry cough Medication List - Last Reconciled 03/18/24 by Akash Diaz MD amlodipine 10 mg PO DAILY 90 days ascorbate calcium (vitamin C) 1,000 mg PO DAILY aspirin 81 mg PO DAILY 90 days lcqprfmsg-ugdwyqyf-fyxkkzo ala 50-200-25 mg (Biktarvy) 1 tab PO DAILY 30 days coenzyme Q10 (Co Q-10) 100 mg PO DAILY empagliflozin (Jardiance) 10 mg PO QAM 30 days ezetimibe (Zetia) 10 mg PO DAILY 90 days loratadine 10 mg PO DAILY losartan 50 mg PO DAILY 90 days metformin 250 mg pm and 500 mg am orally 2 times a day; metoprolol succinate ER 50 mg PO BEDTIME omega-3 fatty acids 500 mg PO BID 90 days omeprazole 20 mg PO BID 90 days rosuvastatin 20 mg PO BEDTIME 90 days sennosides (Natural Senna Laxative) 17.2 mg (2 x 8.6 mg) PO BEDTIME tamsulosin 0.4 mg PO BEDTIME Tobacco use date assessed: 03/18/24 Dental Screening Dental Screen Date: 09/04/23 HPI Annual PE HPI Details 63 y/o male presents for a CPE with f/u labs and health maintenance. A1c today 03/18/24 6.7%. He is on metformin. No recent CPE-labs to review. PSA level 0.18 12/29/23. Blood pressure today 118/70. He is on amlodipine 10mg, losartan 50mg daily. HPI Comments History of Present Illness Details Documentation assistance for Akash Diaz MD, was provided by Damion Mosqueda, Ring Stri[employer] on 03/18/2024 4:22 PM EST. [place], Dr. Diaz, have read, observed, and verified documentation. 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 Brett Donnelly, Jyothi Madison, Darian Patterson and colleagues, with an educational ara from [employer]. Review of Systems Const Denies chills, Denies fatigue, Denies fever(s), Denies headache(s) and Denies weakness Eyes Denies change in vision ENT Denies dizziness, Denies headache(s), Denies hearing loss, Denies nasal congestion, Denies sinus pain, Denies sinus pressure and Denies sore throat Card Denies chest pain, Denies lightheadedness, Denies dyspnea and Denies other (palpitations) Resp Denies cough, Denies dyspnea and Denies wheezing GI Denies abdominal pain, Denies melena, Denies hematochezia, Denies change in bowel habits, Denies dyspepsia and Denies nausea Denies hematuria and Denies dysuria Musc Denies abnormal gait, Denies myalgias, Denies arthralgias, Denies numbness and Denies tingling Skin/Breast Denies rash, Denies unusual bruising and Denies wounds Neuro Denies abnormal gait, Denies dizziness, Denies headache(s), Denies memory loss, Denies numbness, Denies Sensory deficit (Neuro), Denies tingling and Denies weakness Psych Denies anxiety, Denies depression and Denies memory loss Endo Denies cold intolerance, Denies fatigue, Denies heat intolerance, Denies polydipsia and Denies polyuria Austen/Lymph Denies easy bleeding and Denies easy bruising Aller/Immun Denies wheezing Physical exam (Primary Care) Vital Signs: Last Vital Signs Temp 98 F 03/18/24 16:06 Pulse 73 03/18/24 16:06 Resp 16 03/18/24 16:06 BP 118/70 03/18/24 16:06 BMI result Body Mass Index 30.2 Tobacco/Smoking Status: Tobacco use Status Tobacco use date assessed 03/18/24 03/18/24 16:02 Patient Tobacco Use Status Never used Tobacco 03/18/24 16:02 e-Cigarette/Vaping Use Never Used 03/18/24 16:02 Thrive Assessment: Date of Thrive Assessment Date Thrive assessed 12/04/23 03/18/24 16:02 Const General: no acute distress, well developed, alert and awake Nutritional Appearance: well nourished Orientation/consciousness: patient oriented x3 HENMT Head: Yes normocephalic and Yes atraumatic Ears: hearing grossly normal bilaterally and TM's normal bilaterally General nose exam: Normal external nose present and Normal nares present Mouth: Normal oral and palatal mucosa present and moist mucous membranes Teeth and gingiva: dentition normal Throat: Yes posterior oropharynx normal Eyes General: appearance normal, both eyes and all related structures Pupils: Equal, round and reactive pupils present and Pupil accommodation reflex normal EOM: EOMs intact bilaterally Neck Neck: Yes normal visual inspection, Yes no lymphadenopathy and Yes trachea midline Thyroid: Thyroid normal Carotids: no bruits Lymphatic: no lymphadenopathy noted Chest Chest palpation & inspection: normal inspection of the chest Resp Effort & Inspection: normal respiratory effort Auscultation: clear to auscultation bilaterally Cardio Rate: regular rate Rhythm: regular rhythm Heart sounds: S1 normal heart sound present, S2 normal heart sound present, no gallops, no murmurs and no rubs Bruits: no abdominal aortic bruits and no carotid bruits GI Palpation (GI): No Abdominal aortic bruit present, Soft to palpation, nontender, No hepatosplenomegaly present and No Rebound tenderness present Auscultation: normal bowel sounds General: Yes no CVA tenderness Back/Spine/Pelvis Back: no CVA tenderness Cervical Spine: cervical ROM normal and No Cervical spine tenderness Thoracic/Lumbar Spine: thoraco-lumbar ROM normal, No pain with thoraco-lumbar ROM, No thoracic spinal tenderness and No lumbar spinal tenderness Skin Lesions: no lesions Rashes: no rashes Trauma: no lacerations or abrasions Wounds: no wounds Nails: normal Neuro General: patient oriented x3 Cranial nerves: Yes Equal, round and reactive pupils present Cognition (Neuro): normal cognition Gait exam (Neuro): Normal gait present Motor exam (neuro): 5/5 motor strength present throughout Sensory Exam: No Sensory deficit (Neuro) Deep tendon reflexes (DTR's): Right patellar reflex intensity grade: 2+ and Left patellar reflex intensity grade: 2+ Extrem General: Yes normal to inspection and No edema Psych Appearance: grossly normal Affect: normal affect Attitude: cooperative Thought process: Normal thought process present Results AMB Hemoglobin A1c AMB Hemoglobin A1c 6.7 % Last Edit by Deysi Oquendo CMA on 03/18/24 16:22 AMB Hemoglobin A1c previously reported as 5.4 Deysi Oquendo 03/18/24 16:22 Assessment and Plan Assessment & Plan (1) Adult general medical exam: Code(s): Z00.00 - Encounter for general adult medical examination without abnormal findings Plan: 63-year-old?male?presents?for?complete?physical?exam Encouraged?healthy?diet?with?active?lifestyle?and?plenty?of?exercise (2) Diabetes: Code(s): E11.9 - Type 2 diabetes mellitus without complications Plan: A1c?6.7%.??Good?control.??Goal?is?less?than?7.0% Continue?current?medication?regimen?and?diabetic?diet (3) Essential hypertension: Code(s): I10 - Essential (primary) hypertension Plan: Blood?pressure?was?borderline?at?last?visit. Blood?pressure?today?shows?good?control.??Goal?is?less?than?130/80 Continue?current?medication (4) Coronary artery disease: Code(s): I25.10 - Atherosclerotic heart disease of [place] coronary artery without angina pectoris Plan: Stable Follow-up?with?Cardiology?as?recommended (5) Low HDL (under 40): Code(s): E78.6 - Lipoprotein deficiency Plan: Still?has?low?HDL?though?his?other?lipids?are?controlled. Goal?is?greater?than?40 Continue?working?on?exercise Patient?says?he?has?been?taking?a?fish?oil?capsule?as?well Recheck?lipids?prior?to?next?visit?and?we?can?follow-up?at?that?time (6) Hyperlipidemia: Code(s): E78.5 - Hyperlipidemia, unspecified Plan: Patient's?other?lipids?are?controlled.??He?is?on?rosuvastatin?and?Zetia Continue?current?medication?regimen (7) Screening for prostate cancer: Code(s): Z12.5 - Encounter for screening for malignant neoplasm of prostate Plan: PSA?is?within?normal?range Continue?annual?screen (8) Screening for colon cancer: Code(s): Z12.11 - Encounter for screening for malignant neoplasm of colon Plan: Colonoscopy?performed?in?October?and?recommended?5?year?follow-up?in?2028 Orders: Orders Lipid Panel Today E78.6 - Lipoprotein deficiency, Z00.00 - Encounter for general adult medical examination without abnormal findings AMB Hemoglobin A1c Today Z13.9 - Encounter for screening, unspecified Comprehensive [place]. Panel Fast Today E78.6 - Lipoprotein deficiency, Z00.00 - Encounter for general adult medical examination without abnormal findings Coding Level of Care Code Est Pt Level 3 (83586) Est Pt Prev Care 40-64y(75228) Diagnoses Adult general medical exam Z00.00 Diabetes E11.9 Essential hypertension I10 Coronary artery disease I25.10 Low HDL (under 40) E78.6 Hyperlipidemia E78.5 Screening for prostate cancer Z12.5 Screening for colon cancer Z12.11
[2024-03-18 16:06] VITALS: BP 118/70; PULSE 73; RESP 16; TEMP 36.6; BMI 30.2
== END 2024-03-18 16:31 | disposition home or self-care (01) ==
PROVIDERS: PCP Family Medicine; Visit Provider Family Medicine
DX: Z00.00 Encounter for general adult medical examination without abnormal findings (principal); E11.9 Type 2 diabetes mellitus without complications; I10 Essential (primary) hypertension; I25.10 Atherosclerotic heart disease of native coronary artery without angina pectoris; E78.6 Lipoprotein deficiency; E78.5 Hyperlipidemia, unspecified; Z12.5 Encounter for screening for malignant neoplasm of prostate; Z12.11 Encounter for screening for malignant neoplasm of colon
CPT/HCPCS: 83036; 99396

== ENCOUNTER 2024-05-13 11:59 | Outpatient (AMB) | payer OTHER, SELFPAY ==
--- NOTE | 2024-05-13 12:04 | MHC.OFFVIS ---
Vital Signs 05/13/24 12:08 Height 5 ft 6 in Weight 186 lb 8.177 oz BMI 30.1 BP 132/74 Blood Pressure Location Rt brachial Position Sitting Pulse 66 Pulse Source Pulse Oximeter Pulse Oximetry (%) 95 Oxygen Delivery Method Room Air Intake Visit Reasons: 6 Month follow up Intake Note: Cam presents in office today for a scheduled 6 mos FUV. CC; Pt was rx'd senna at their last visit. No labs ordered. Pt reports that they have been taking the medication as instructed and have been doing well. Pt denies any new sx or concerns at this time. It Architect Required: No Allergies lisinopril Adverse Reaction (Intermediate, Verified 05/13/24 12:08) Dry cough HPI HPI 6 Month follow up: Details: LAST VISIT: Tubular adenoma of colon Diverticulosis Hemorrhoids without complication Status post colonoscopy Plan Patient will start taking senna daily. He will call our office if he will continue to be constipated. Tubular adenoma without high-grade dysplasia or carcinoma found. Patient will repeat colonoscopy in 5 years, sooner if clinically necessary. Discussed with patient high-fiber diet, moderate diverticulosis seen on colonoscopy. Stressed the importance of trying to take eelt-jns-vpkkity probiotic. I will see patient in 6 months, sooner on as needed basis. Patient is agreeable to this plan and verbalizes understanding of instructions. He was given the opportunity to ask questions and all questions answered. ? Thank you for allowing me to participate in his care Medications New sennosides (Natural Senna Laxative) 17.2 mg (2 x 8.6 mg) PO BEDTIME 180 tabs 3RF constipation K59.00 TODAY'S VISIT Patient is here today for follow-up. Last visit we discuss colonoscopy, 5 year recall. Patient started taking senna as prescribed last time and he has been moving his bowels better now. Patient denies any melena, hematochezia, unintentional weight loss or ribbon like stools. Patient is taking omeprazole twice a day as prescribed by his PCP in he is doing well. Denies any acid reflux, dyspepsia, dysphagia or odynophagia. Patient reports that he has been doing well. Following up with his PCP for regular appointments as well as with Infectious Disease provider for treatment of HIV. Patient reports that he has been doing fairly well. 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 Current occupational exposures/hazards: No Cognitive needs: No Hearing needs: No Vision needs: Yes (reading glasses) Review of Systems Const Denies weight gain and Denies weight loss ENT Reports no additional complaints, Denies dysphagia and Denies odynophagia Card Reports no additional complaints Resp Reports no additional complaints GI Denies abdominal pain, Denies belching, Denies melena, Denies bloating, Denies change in bowel habits, Denies constipation, Denies dysphagia, Denies excessive flatus, Denies dyspepsia, Denies heartburn, Denies diarrhea, Denies loose stools, Denies nausea, Denies odynophagia and Denies vomiting Reports no additional complaints Musc Reports no additional complaints Neuro Reports no additional complaints Psych Reports no additional complaints Endo Reports no additional complaints Physical Exam Vital Signs: Last Vital Signs Pulse 66 05/13/24 12:08 BP 132/74 05/13/24 12:08 Pulse Ox 95 05/13/24 12:08 Oxygen Delivery Method Room Air 05/13/24 12:08 BMI result Body Mass Index 30.1 Const General: healthy appearing and no acute distress Nutritional Appearance: obese Orientation/consciousness: patient oriented x3 Resp Effort & Inspection: normal respiratory effort, able to speak in complete sentences, no tracheal deviation and symmetric chest movement Auscultation: clear to auscultation bilaterally Cardio Rate: regular rate GI Inspection: Yes normal to inspection, No distended and Yes obesity Palpation (GI): Soft to palpation, not firm, nontender and No hepatosplenomegaly present Auscultation: normal bowel sounds General: Yes no CVA tenderness Back/Spine/Pelvis Back: no CVA tenderness Skin General skin exam: elasticity normal, turgor normal and dry skin Neuro General: patient oriented x3 Psych Appearance: grossly normal Mental Status: mental status grossly normal Assessment & Plan Assessment & Plan (1) Diverticulosis: Code(s): K57.90 - Diverticulosis of intestine, part unspecified, without perforation or abscess without bleeding Category: Medical (2) Constipation: Code(s): K59.00 - Constipation, unspecified Qualifiers: Constipation type: slow transit constipation Qualified Code(s): K59.01 - Slow transit constipation Plan Continue omeprazole daily. Avoid dietary triggers and late night snacking. Staying upright for minimum 3 hours after meals discussed with patient. Continue taking senna. Increase fluid intake and activity to promote better bowel motility. Colonoscopy in 5 years, sooner if clinically necessary. Patient can follow-up with PCP before prescription of senna and omeprazole. Patient will call our office if he will experience any GI concerning symptoms. Patient is agreeable to this plan and verbalizes understanding of instructions. He was given the opportunity to ask questions and all questions answered. Thank you for allowing me to participate in his care Coding Level of Care Code Est Pt Level 3 (87322) Diagnoses Diverticulosis K57.90 Slow transit constipation K59.01 Constipation type: slow transit constipation Time Spent (min) 25 Comment 15 minutes spent with patient and additional 10 minutes spent reviewing his records
[2024-05-13 12:08] VITALS: BP 132/74; PULSE 66; O2SAT 95; BMI 30.1
== END 2024-05-13 13:12 | disposition home or self-care (01) ==
PROVIDERS: PCP Family Medicine; Visit Provider Nurse Practitioner Family
DX: K57.90 Diverticulosis of intestine, part unspecified, without perforation or abscess without bleeding (principal); K59.01 Slow transit constipation
CPT/HCPCS: 99213

== ENCOUNTER → 2024-05-13 11:59 | Outpatient (BNVA) | payer OTHER, SELFPAY | PROVIDERS: PCP Family Medicine; Visit Provider Nurse Practitioner Family ==

== ENCOUNTER 2024-06-10 16:17 | Outpatient (AMB) | payer OTHER, SELFPAY ==
--- NOTE | 2024-06-10 16:23 | MHC.PC.OV ---
Vital Signs 06/10/24 16:27 Height 5 ft 6 in Weight 185 lb BMI 29.9 BP 110/66 Blood Pressure Location Rt brachial Position Sitting Respiration 12 Pulse 60 Pulse Source Pulse Oximeter Temp 97.9 F Temp Source Tympanic Pulse Oximetry (%) 96 Oxygen Delivery Method Room Air Intake Visit Reasons: f/u Diabetes HTN Intake Note: follow up diabetes htn Allergies lisinopril Adverse Reaction (Intermediate, Verified 06/10/24 16:25) Dry cough Tobacco use date assessed: 03/18/24 Dental Screening Dental Screen Date: 09/04/23 HPI f/u Diabetes HTN HPI Details 63 y/o male presents to f/u diabetes, hypertension. Blood pressure today 110/66. He is on metoprolol 50mg, losartan 50mg, amlodipine 10mg daily. Last A1c 03/18/24 6.7%. A1c today 06/10/24 is 6.3%. He is on metformin, Jardiance 10mg. Last diabetic eye exam August 2023 which showed no diabetic retinopathy. Pt notes he has been using a CPAP machine for his sleep apnea. HPI Comments History of Present Illness Details Documentation assistance for Akash Diaz MD, was provided by Damion Mosqueda,? [employer] Executive Director on 06/10/2024 at 4:39 PM EST. I, Dr. Diaz, have read, observed, and verified documentation. 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 Brett Donnelly, Jyothi Madison, Darian Patterson and colleagues, with an educational ara from [employer]. Review of Systems Const Denies chills, Denies fatigue, Denies fever(s), Denies headache(s) and Denies weakness ENT Denies dizziness and Denies headache(s) Card Denies chest pain, Denies lightheadedness, Denies dyspnea and Denies other (Palpitations) Resp Denies cough, Denies dyspnea, Denies wheezing and Denies other ( shortness of breath) Musc Denies numbness and Denies tingling Neuro Denies dizziness, Denies headache(s), Denies numbness, Denies tingling, Denies paresthesias and Denies weakness Psych Denies anxiety and Denies depression Endo Denies fatigue Aller/Immun Denies wheezing Physical exam (Primary Care) Vital Signs: Last Vital Signs Temp 97.9 F 06/10/24 16:27 Pulse 60 06/10/24 16:27 Resp 12 06/10/24 16:27 BP 110/66 06/10/24 16:27 Pulse Ox 96 06/10/24 16:27 Oxygen Delivery Method Room Air 06/10/24 16:27 BMI result Body Mass Index 29.9 Tobacco/Smoking Status: Tobacco use Status Tobacco use date assessed 03/18/24 06/10/24 16:23 Patient Tobacco Use Status Never used Tobacco 06/10/24 16:23 e-Cigarette/Vaping Use Never Used 06/10/24 16:23 Thrive Assessment: Date of Thrive Assessment Date Thrive assessed 12/04/23 06/10/24 16:23 Const General: no acute distress and well developed Nutritional Appearance: well nourished Orientation/consciousness: patient oriented x3 [facility] Head: Yes normocephalic and Yes atraumatic Eyes General: appearance normal, both eyes and all related structures Pupils: Equal, round and reactive pupils present EOM: EOMs intact bilaterally Resp Effort & Inspection: normal respiratory effort Auscultation: clear to auscultation bilaterally Cardio Rate: regular rate Rhythm: regular rhythm Heart sounds: S1 normal heart sound present, S2 normal heart sound present, no gallops, no murmurs and no rubs Neuro General: patient oriented x3 and gait normal Cranial nerves: Yes Equal, round and reactive pupils present Psych Affect: normal affect Assessment and Plan Assessment & Plan (1) Essential hypertension: Code(s): I10 - Essential (primary) hypertension Plan: Blood?pressure?is?controlled.??Goal?is?less?than 130/80 Continue?current?medication (2) Diabetes: Code(s): E11.9 - Type 2 diabetes mellitus without complications Plan: A1c?6.3%.??Good?control.??Goal?is?less?than?7.0% Continue?current?medication?regimen Patient?had?eye?exam?in?August?and?this?showed?no?diabetic?retinopathy - up-to-date (3) Hyperlipidemia: Code(s): E78.5 - Hyperlipidemia, unspecified Plan: History?of?coronary?artery?disease. He?is?on?rosuvastatin He?will?try?to?get?his?labs?done?prior?to?next?visit (4) Coronary artery disease: Code(s): I25.10 - Atherosclerotic heart disease of [place] coronary artery without angina pectoris Plan: Stable (5) Sleep apnea: Comment: Mild degree of sleep apnea. The AHI was 6/hr and oxygen herber was 84%. Code(s): G47.30 - Sleep apnea, unspecified Plan: Patient?is?followed?by?sleep?medicine He?is?working?on?good?compliance?with?his?CPAP. Coding Level of Care Code Est Pt Level 4 (56973) Diagnoses Essential hypertension I10 Diabetes E11.9 Hyperlipidemia E78.5 Coronary artery disease I25.10 Sleep apnea G47.30
[2024-06-10 16:27] VITALS: BP 110/66; PULSE 60; RESP 12; TEMP 36.6; O2SAT 96; BMI 29.9
== END 2024-06-10 16:43 | disposition home or self-care (01) ==
PROVIDERS: PCP Family Medicine; Visit Provider Family Medicine
DX: I10 Essential (primary) hypertension (principal); E11.9 Type 2 diabetes mellitus without complications; E78.5 Hyperlipidemia, unspecified; I25.10 Atherosclerotic heart disease of native coronary artery without angina pectoris; G47.30 Sleep apnea, unspecified
CPT/HCPCS: 99214

== ENCOUNTER 2024-06-17 10:45 | Outpatient (REF) | payer OTHER, SELFPAY ==
[2024-06-17 14:42] LABS: Alanine Aminotransferase 30 U/L (0-40); Albumin Level 4.4 g/dL (3.5-5.0); Alkaline Phosphatase 66 U/L (39-117); Anion Gap 11 (12-20); Aspartate Amino Transferase 30 U/L (5-37); Bilirubin Total 0.9 mg/dL (0.0-1.0); Blood Urea Nitrogen 14 mg/dL (9-16); Calcium 9.3 mg/dL (8.4-10.2); Carbon Dioxide 29 mmol/L (22-29); Chloride 105 mmol/L (96-108); Cholesterol 92 mg/dL (<200); Estimated Glomerular Filt Rate > 60; Glucose Fasting 118 mg/dL (60-99); HDL Cholesterol 28 mg/dL (>40); LDL Cholesterol Calculated 34 mg/dL (<100); Potassium 3.9 mmol/L (3.3-5.1); Sodium 141 mmol/L (135-145); Total Protein 7.1 g/dL (6.5-8.0); Triglycerides 151 mg/dL (<150)
[2024-06-18 16:34] LABS: HIV RNA PCR Qn Copies NOT DETECTED copies/mL (NOT DETECTED); HIV RNA PCR Qn Log Copies NOT DETECTED (NOT DETECTED)
[2024-06-20 19:43] LABS: Absolute CD3 Count 1599 cells/uL (840-3060); Absolute CD4 Count 995 cells/uL (490-1740); Absolute CD8 Count 605 cells/uL (180-1170); Absolute Lymphocytes 2001 cells/uL (850-3900); CD4 CD8 Ratio 1.64 (0.86-5.00); Percent CD3 Cells 80 % (57-85); Percent CD4 Cells 50 % (30-61); Percent CD8 Cells 30 % (12-42)
== END 2024-06-17 10:46 | disposition home or self-care (01) ==
LOC: HO.WFDLDS 10:45
PROVIDERS: Referring Provider Internal Medicine; Visit Provider Family Medicine
DX: Z00.00 Encounter for general adult medical examination without abnormal findings (principal); E78.6 Lipoprotein deficiency; Z21 Asymptomatic human immunodeficiency virus [HIV] infection status
CPT/HCPCS: 36415; 80053; 80061; 86359; 86360; 87536

== ENCOUNTER 2024-06-24 11:20 | Outpatient (AMB) | payer OTHER, SELFPAY ==
[2024-06-24 11:25] VITALS: BP 118/78; PULSE 80; O2SAT 98; BMI 29.5
--- NOTE | 2024-06-24 11:25 | A.OFFVIS_ITS ---
Vital Signs 06/24/24 11:25 Height 5 ft 6 in Weight 183 lb BMI 29.5 BP 118/78 Blood Pressure Location Rt brachial Position Sitting Pulse 80 Pulse Source Pulse Oximeter Pulse Oximetry (%) 98 Oxygen Delivery Method Room Air Intake Visit Reasons: 6 mo f/u-LVM Intake Note: Patient presents for 6 month follow up. Allergies lisinopril Adverse Reaction (Intermediate, Verified 06/24/24 11:29) Dry cough HPI Comments Details: 63-yr-old male presents for follow-up visit of sleep apnea. Pt denies any significant interval medical history changes. Pt states he has been sleeping well with his CPAP machine. He is using his CPAP most nights, may miss a night if he has nasal congestion. Occasionally may not reach 4 hrs of us, depending in work schedule. He is not having any oral dryness, daytime tiredness or snoring anymore. He is using a full face mask, which he is tolerating better. 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 [facility] Compliance Report Usage 05/24/2024 - 06/22/2024 Usage days 29/30 days (97%) Usage days >= 4 hours 26 days (87%) Usage days < 4 hours 3 days (10%) Average usage (days used) 5 hours 48 minutes AirSense 10 AutoSet Serial number [id number] Mode AutoSet Min Pressure 5- 15 cmH2O EPR Fulltime EPR level 2 Response Standard Therapy Pressure - Maximum: 13.8 cmH2O Leaks - Median: 5.0, 12.2 Maximum: 29.2 L/min Events per hour AI: 0.8 HI: 0.2 AHI: 1.0 per hour PFSH Medical History Diverticulosis Tubular adenoma of colon Sleep apnea HIV (human immunodeficiency virus infection) Fatty liver Coronary artery disease Hyperlipidemia Essential hypertension Diabetes Surgical History Stented coronary artery Hx of shoulder surgery H/O colonoscopy History of biopsy Social History Housing: House Alcohol intake: never Patient Tobacco Use Status: Never used Tobacco e-Cigarette/Vaping Use: Never Used Second Hand Smoke Exposure: No service: Yes Current occupational status: employed 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 Current occupational exposures/hazards: No Cognitive needs: No Hearing needs: No Vision needs: Yes (reading glasses) Review of Systems Const All systems reviewed & are unremarkable except as noted in HPI and below Physical Exam Vital Signs: Last Vital Signs Pulse 80 06/24/24 11:25 BP 118/78 06/24/24 11:25 Pulse Ox 98 06/24/24 11:25 Oxygen Delivery Method Room Air 06/24/24 11:25 BMI result Body Mass Index 29.5 Const General: no acute distress Orientation/consciousness: patient oriented x3 HEENT Other: Mallampati stage Resp Effort & Inspection: normal respiratory effort and able to speak in complete sentences Auscultation: clear to auscultation bilaterally Neuro General: patient oriented x3 Psych Mental Status: mental status grossly normal Speech and movement: Clear speech present Attitude: cooperative Results Reviewed Results Reviewed: PAP compliance report- see HPI Assessment & Plan Assessment & Plan (1) Sleep apnea: Comment: Mild degree of sleep apnea. The AHI was 6/hr and oxygen herber was 84%. Code(s): G47.30 - Sleep apnea, unspecified Category: Medical Plan Continue APAP 5-15 cmH2O nightly > 4 hours, as pt continues to have good clinical effect from use. Clean CPAP machine and supplies routinely. Change CPAP supplies routinely. Pt advised to request an updated PAP compliance report prior to his DoT exam in Aug. Pt to contact us or respiratory company with any questions or concerns. f/u in 1 yr or sooner prn. Coding Level of Care Code Est Pt Level 3 (26899) Diagnoses Sleep apnea G47.30
== END 2024-06-24 12:02 | disposition home or self-care (01) ==
PROVIDERS: PCP Family Medicine; Visit Provider Nurse Practitioner Family
DX: G47.30 Sleep apnea, unspecified (principal)
CPT/HCPCS: 99213

== ENCOUNTER → 2024-06-24 11:20 | Outpatient (BNVA) | payer OTHER, SELFPAY | PROVIDERS: PCP Family Medicine; Visit Provider Nurse Practitioner Family ==

== ENCOUNTER 2024-06-24 15:38 | Outpatient (AMB) | payer OTHER, SELFPAY ==
--- NOTE | 2024-07-10 22:23 | A.OFFVIS_ITS ---
Intake Visit Reasons: f/u 6 mth,lab Allergies lisinopril Adverse Reaction (Intermediate, Verified 06/24/24 11:29) Dry cough HPI HPI f/u 6 mth,lab: Details: He is here for HIV care followup visit. He has CD4 count of 995 and viral load undetectable on 06/17. He has CAD. 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 Current occupational exposures/hazards: No Cognitive needs: No Hearing needs: No Vision needs: Yes (reading glasses) Physical Exam Const General: cooperative Orientation/consciousness: patient oriented x3 HEENT Head: Yes normal to inspection Mouth: Normal oral and palatal mucosa present Eyes General: appearance normal, both eyes and all related structures Pupils: Equal, round and reactive pupils present Resp Effort & Inspection: normal respiratory effort Cardio Rate: regular rate Rhythm: regular rhythm GI Palpation (GI): Soft to palpation and nontender General: Yes no CVA tenderness Back/Spine/Pelvis Back: no CVA tenderness Skin General skin exam: no rashes or lesions noted Neuro General: patient oriented x3 Cranial nerves: Yes CN's II-XII intact bilaterally and Yes Equal, round and reactive pupils present Extrem General: Yes normal to inspection Psych Appearance: grossly normal Assessment & Plan Assessment & Plan (1) HIV positive: Comment: He is doing well. He takes Biktarvy daily. His viral load undetectable and CD4 count appropriate. Code(s): Z21 - Asymptomatic human immunodeficiency virus [HIV] infection status Category: Medical Plan: Check CD4 count and HIV viral load in six months. Continue Biktarvy. Labs and meds written for. Orders: Orders Complete Blood Count Auto Diff 6 Months Z21 - Asymptomatic human immunodeficiency virus [HIV] infection status Basic Metabolic Panel 6 Months Z21 - Asymptomatic human immunodeficiency virus [HIV] infection status Liver Panel 6 Months Z21 - Asymptomatic human immunodeficiency virus [HIV] infection status HIV-1 RNA QN PCR Expanded 6 Months Z21 - Asymptomatic human immunodeficiency virus [HIV] infection status Lymphocyte Subset Panel 3 6 Months Z21 - Asymptomatic human immunodeficiency virus [HIV] infection status Medications: Refilled ndhcqtkga-llaxcuwl-khloenk ala 50-200-25 mg (Biktarvy) 1 tab PO DAILY 30 tabs 5RF 30 days Coding Level of Care Code Est Pt Level 4 (88502) Diagnoses HIV positive Z21
== END 2024-06-24 16:13 | disposition home or self-care (01) ==
LOC: HO.HID 15:38
PROVIDERS: PCP Family Medicine; Visit Provider Internal Medicine
DX: Z21 Asymptomatic human immunodeficiency virus [HIV] infection status (principal)
CPT/HCPCS: 99214

== ENCOUNTER → 2024-10-14 16:16 | Outpatient (BNVA) | payer OTHER, SELFPAY | PROVIDERS: PCP Family Medicine; Visit Provider Family Medicine | DX: E11.9 Type 2 diabetes mellitus without complications (principal); I10 Essential (primary) hypertension; I25.10 Atherosclerotic heart disease of native coronary artery without angina pectoris; M79.645 Pain in left finger(s); G47.30 Sleep apnea, unspecified; N48.30 Priapism, unspecified; Z79.84 Long term (current) use of oral hypoglycemic drugs | CPT/HCPCS: 83036; 96127 ==

== ENCOUNTER → 2024-10-14 16:16 | Outpatient (AMB) | payer OTHER, SELFPAY ==
[2024-10-14 16:47] VITALS: BP 128/70; PULSE 71; RESP 14; TEMP 36.6; O2SAT 96; BMI 30.6
--- NOTE | 2024-10-14 16:47 | A.OFFPC_ITS ---
Vital Signs 10/14/24 16:47 Height 5 ft 6 in Weight 189 lb 6 oz BMI 30.6 BP 128/70 Blood Pressure Location Rt brachial Position Sitting Respiration 14 Pulse 71 Pulse Source Pulse Oximeter Temp 97.9 F Temp Source Oral Pulse Oximetry (%) 96 Oxygen Delivery Method Room Air Intake Visit Reasons: f/u diabetes, hypertension Intake Note: f/u DM and HTN Allergies lisinopril Adverse Reaction (Intermediate, Verified 10/14/24 16:51) Dry cough Tobacco use date assessed: 03/18/24 Dental Screening Dental Screen Date: 09/04/23 HPI f/u diabetes, hypertension HPI Details 64 y/o male presents to f/u diabetes, HT N. Blood pressure today 128/70, 71p. A1c today 10/14/24 7.9%. He is on metformin. Notes he is out of his Jardiance. Continues to use CPAP machine for his sleep apnea. Reports finger pain. Reports painful erection. HPI Comments History of Present Illness Details Documentation assistance for Akash Diaz MD, was provided by Damion Mosqueda,? Direct Care Professional on 10/14/2024 at 5:17 PM EST. I, Dr. Diaz, have read, observed, and verified documentation. ?? 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 1. Little interest or pleasure in doing things: not at all 2. Feeling down, depressed, or hopeless: not at all 3. Trouble falling or staying asleep, or sleeping too much: not at all 4. Feeling tired or having little energy: nearly every day 5. Poor appetite or overeating: not at all 6. Feeling bad about yourself - or that you are a failure or have let yourself or your family down: not at all 7. Trouble concentrating on things, such as reading the newspaper or watching television: not at all 8. Moving or speaking so slowly that other people could have noticed. Or the opposite - being so fidgety or restless that you have been moving around a lot more than usual: not at all 9. Thoughts that you would be better off or of hurting yourself in some way: not at all Total score: 3 Source: Developed by Drs. Brett Donnelly, Jyothi Madison, Darian Patterson and colleagues, with an educational ara from [employer]. Thrive Questionnaire Date Thrive assessed: 10/07/24 I am a: Patient What is your living situation today?: I have a steady place to live Within the past 12 months, did the food you bought not last and you didn't have the money to get more?: Never true Within the past 12 months, did you worry whether your food would run out before you got money to buy more?: Never true Do you have trouble paying for medicines?: No Do you have trouble getting transportation to medical appointments?: No Do you have trouble paying your heating and electricity bill?: No Do you have trouble taking care of your child, family member or friend?: No Do you have trouble with day-to-day activities such as bathing, preparing meals, shopping, managing finances, etc.?: No Are you currently unemployed and looking for a job?: No Are you interested in more education?: No Please select the resources that you would like help with: None Currently or been in a relationship where the following occur: No concerns reported THRIVE Score: 0 AUDIT C Alcohol Use Questionnaire (AUDIT-C) 1. How often do you have a drink containing alcohol?: Monthly or less 2. How many drinks containing alcohol do you have on a typical day when you are drinking?: 1 or 2 3. How often do you have six or more drinks on one occasion?: Never Total Score: 1 MONTSERRAT-7 AMB Questionnaire MONTSERRAT-7 Date MONTSERRAT - 7 assessed: 12/04/23 Feeling nervous, anxious, or on edge: 0 = Not at all Not being able to stop or control worryin = Not at all Worrying too much about different things: 0 = Not at all Trouble relaxin = Not at all Being so restless that it is hard to sit still: 0 = Not at all Becoming easily annoyed or irritable: 0 = Not at all Feeling afraid as if something awful might happen: 0 = Not at all Total MONTSERRAT-7 score (0-4 normal; 5-9 mild; 10-14 moderate; 15-21 severe): 0 Source: Developed by Drs. Brett Donnelly, Jyothi Madison, Darian Patterson and colleagues, with an educational ara from [employer]. Review of Systems Const Denies chills, Denies fatigue, Denies fever(s), Denies headache(s) and Denies weakness ENT Denies dizziness and Denies headache(s) Card Denies dyspnea Resp Denies cough, Denies dyspnea, Denies wheezing and Denies other (shortness of breath) Musc Denies numbness and Denies tingling Neuro Denies dizziness, Denies headache(s), Denies numbness, Denies tingling and Denies weakness Psych Denies anxiety and Denies depression Endo Denies fatigue Aller/Immun Denies wheezing Physical exam (Primary Care) Vital Signs: Last Vital Signs Temp 97.9 F 10/14/24 16:47 Pulse 71 10/14/24 16:47 Resp 14 10/14/24 16:47 BP 128/70 10/14/24 16:47 Pulse Ox 96 10/14/24 16:47 Oxygen Delivery Method Room Air 10/14/24 16:47 BMI result Body Mass Index 30.6 Tobacco/Smoking Status: Tobacco use Status Tobacco use date assessed 03/18/24 10/14/24 16:52 Patient Tobacco Use Status Never used Tobacco 10/14/24 16:52 e-Cigarette/Vaping Use Never Used 10/14/24 16:52 PHQ-9: PHQ-9 Score PHQ-9: Total score 3 10/14/24 17:11 Thrive Assessment: Date of Thrive Assessment Date Thrive assessed 10/07/24 10/14/24 16:52 Currently or been in a relationship where the following occur: No concerns reported Const General: well developed; No acute distress Nutritional Appearance: well nourished Orientation/consciousness: patient oriented x3 HENMT Head: Yes normocephalic and Yes atraumatic Eyes General: appearance normal, both eyes and all related structures Pupils: Equal, round and reactive pupils present EOM: EOMs intact bilaterally Resp Effort & Inspection: normal respiratory effort Neuro General: patient oriented x3 and gait normal Cranial nerves: Yes Equal, round and reactive pupils present Psych Affect: normal affect Results AMB Hemoglobin A1c AMB Hemoglobin A1c 7.9 % Last Edit by Giorgi Hernandez CMA on 10/14/24 17:08 Results Reviewed Results Reviewed: Laboratory Last Values Hgb A1c (Clinic) 7.9 % (4.0-6.0) H 10/14/24 17:05 Coding Level of Care Code Est Pt Level 4 (03554) Diagnoses Diabetes E11.9 Essential hypertension I10 Coronary artery disease I25.10 Finger pain M79.646 Sleep apnea G47.30 Painful erection N48.30 Assessment & Plan Assessment & Plan (1) Diabetes: Code(s): E11.9 - Type 2 diabetes mellitus without complications Category: Medical Plan: A1c?jumped?to?7.9%.??Goal?is?less?than?7% Patient?has?been?unable?to?get?his?Jardiance I?have?sent?a?refill?for? this.??He?will?let?me?know?if?he?is?unable?to?get?it?still Continue?metformin (2) Essential hypertension: Code(s): I10 - Essential (primary) hypertension Category: Medical Plan: Blood?pressure?is?controlled.??Goal?is?less?than?130/80 Continue?current?medication (3) Coronary artery disease: Code(s): I25.10 - Atherosclerotic heart disease of [place] coronary artery without angina pectoris Category: Medical Plan: Stable (4) Finger pain: Code(s): M79.646 - Pain in unspecified finger(s) Category: Medical Plan: Left?index?finger?discomfort?and?catching He?will?try?some?ibuprofen?and?Aspercreme?and?heat If?not?improving?will?image?and?refer?to?hand?specialist (5) Sleep apnea: Comment: Mild degree of sleep apnea. The AHI was 6/hr and oxygen herber was 84%. Code(s): G47.30 - Sleep apnea, unspecified Category: Medical Plan: Patient?continues?APAP Stable Follow-up?with?sleep?medicine?as?recommended (6) Painful erection: Code(s): N48.30 - Priapism, unspecified Category: Medical Plan: Referred?to?urology Orders: Orders AMB Hemoglobin A1c Today E11.9 - Type 2 diabetes mellitus without complications Microalbumin, Random (w Creat) Today I10 - Essential (primary) hypertension Comprehensive [place]. Panel Fast Today I10 - Essential (primary) hypertension, Z00.00 - Encounter for general adult medical examination without abnormal findings Referrals Urology Referral N48.30 - Priapism, unspecified Medications: Changed From empagliflozin (Jardiance) 10 mg PO QAM 30 days 30 tabs 1RF To empagliflozin (Jardiance) 10 mg PO QAM 90 days 90 tabs 3RF
== END ==
PROVIDERS: PCP Family Medicine; Visit Provider Family Medicine
DX: E11.9 Type 2 diabetes mellitus without complications (principal); I10 Essential (primary) hypertension; I25.10 Atherosclerotic heart disease of native coronary artery without angina pectoris; M79.646 Pain in unspecified finger(s); G47.30 Sleep apnea, unspecified; N48.30 Priapism, unspecified

== ENCOUNTER 2024-11-11 12:24 | Outpatient (AMB) | payer OTHER, SELFPAY ==
--- NOTE | 2024-11-11 12:32 | A.OFFVIS_ITS ---
Vital Signs 11/11/24 12:34 Height 5 ft 6 in Weight 189 lb 9.561 oz BMI 30.6 BP 130/80 Blood Pressure Location Lt brachial Position Sitting Pulse 56 Intake Visit Reasons: 1 yr f/up Intake Note: 1 year follow-up with ekg feeling good Book Sorter Required: No Allergies lisinopril Adverse Reaction (Intermediate, Verified 10/14/24 16:51) Dry cough Medication List - Last Reconciled 11/11/24 by Doug Alarcon MD amlodipine 10 mg PO DAILY 90 days ascorbate calcium (vitamin C) 1,000 mg PO DAILY aspirin 81 mg PO DAILY 90 days qrjbczeso-gnqfsxhx-kjoynho ala 50-200-25 mg (Biktarvy) 1 tab PO DAILY 30 days coenzyme Q10 (Co Q-10) 100 mg PO DAILY ezetimibe (Zetia) 10 mg PO DAILY 90 days loratadine 10 mg PO DAILY losartan 50 mg PO DAILY 90 days metformin 250 mg pm and 500 mg am orally 2 times a day; 90 days metoprolol succinate ER 50 mg PO BEDTIME 90 days omega-3 fatty acids 500 mg PO BID 90 days omeprazole 20 mg PO BID 90 days rosuvastatin 20 mg PO BEDTIME 90 days sennosides (Natural Senna Laxative) 17.2 mg (2 x 8.6 mg) PO BEDTIME tamsulosin 0.4 mg PO BEDTIME HPI Comments Details: Cam comes for follow-up. He has been doing very well from cardiac perspective. Remains very active. Currently taking all his medications although he says insurance company does not approve his Jardiance therapy. His hemoglobin A1c is significantly increased to 7.9. Patient takes all his medications regularly. Denies any lightheadedness, syncope. No heart failure symptoms. 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 Current occupational exposures/hazards: No Cognitive needs: No Hearing needs: No Vision needs: Yes (reading glasses) Review of Systems Const Denies chills, Denies fatigue, Denies fever(s), Denies frequent falls, Denies weakness, Denies weight gain and Denies weight loss ENT Denies dizziness Card Denies chest pain, Denies leg edema, Denies lightheadedness, Denies palpitations, Denies dyspnea, Denies dyspnea on exertion, Denies orthopnea and Denies other (loss of consciousness) Resp Denies cough, Denies dyspnea and Denies dyspnea on exertion GI Denies hematochezia and Denies change in stool character Musc Denies abnormal gait, Denies muscle weakness, Denies numbness, Denies radiating pain into limb and Denies tingling Neuro Denies Abnormal speech present, Denies abnormal gait, Denies dizziness, Denies frequent falls, Denies numbness, Denies tingling and Denies weakness Endo Denies fatigue and Denies palpitations Physical Exam Vital Signs: Last Vital Signs Pulse 56 11/11/24 12:34 BP 130/80 11/11/24 12:34 BMI result Body Mass Index 30.6 Const General: cooperative, comfortable, no acute distress, alert, awake and Physically active Nutritional Appearance: average body habitus Orientation/consciousness: patient oriented x3 Limitations: no limitations Neck Neck: Yes trachea midline, Yes supple and Yes no JVD Chest Chest palpation & inspection: normal inspection of the chest Resp Effort & Inspection: normal respiratory effort Auscultation: clear to auscultation bilaterally Cardio Jugular venous distension: no JVD Palpation: normal PMI Rate: regular rate Rhythm: regular rhythm Heart sounds: S1 normal heart sound present, S2 normal heart sound present, no click, no gallops, no murmurs and no rubs Bruits: no carotid bruits GI Auscultation: normal bowel sounds Skin General skin exam: no rashes or lesions noted Neuro General: patient oriented x3 and no focal motor deficits Speech: No Abnormal speech present Extrem General: Yes no clubbing, cyanosis or edema Office Procedures EKG Details: EKG shows sinus bradycardia 56 beats per minute [id number], Complete Assessment & Plan Assessment & Plan (1) Coronary artery disease: Code(s): I25.10 - Atherosclerotic heart disease of [place] coronary artery without angina pectoris Category: Medical Plan: CAD with RCA stenting with drug-eluting stent for inferior STEMI. Currently doing well. Stress test last year at high workload within normal limits. Continues to have no symptoms at good functional status. 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 Currently continue low-dose aspirin therapy for life. Continue aggressive risk factor modification. His diabetes not well managed and therefore I have taken the liberty to refer him to endocrinology colleagues to help manage his diabetes and get approval for appropriate therapy. Benefit from either GLP 1 or SGLT2 inhibitor therapy. Continue aggressive blood pressure control. Goal hemoglobin A1c less than 7%. His LDL is well optimized on dual therapy with ezetimibe and high-intensity statin therapy. Importance of continued lipid modification was discussed. Understands agrees. Advised to call me with new symptoms. ETT next year. From cardiac perspective I think there are no restriction to his DOT clearance (2) Essential hypertension: Code(s): I10 - Essential (primary) hypertension Category: Medical Plan: Hypertension which is currently well optimized advised to monitor blood pressure at home maintain a log. Continue current losartan, metoprolol as amlodipine therapy. Importance of good blood pressure control was discussed. Target goal blood pressure less than 130/84. Low-salt diet was discussed advised to maintain activity level as tolerated. Follow up in the clinic in 1 year's time, sooner p.r.n.. Thank you for allowing me to partake in his care Orders: Referrals Endocrinology Referral E11.9 - Type 2 diabetes mellitus without complications Coding Level of Care Code Est Pt Level 4 (38332) Complex EM visit Add On G2211 Diagnoses Coronary artery disease I25.10 Essential hypertension I10 CPT Codes EKG - CPT: 89482-[id number], Complete ([id number])
[2024-11-11 12:34] VITALS: BP 130/80; PULSE 56; BMI 30.6
== END 2024-11-11 12:55 | disposition home or self-care (01) ==
PROVIDERS: PCP Family Medicine; Visit Provider Internal Medicine Cardiovascular Disease
DX: I25.10 Atherosclerotic heart disease of native coronary artery without angina pectoris (principal); I10 Essential (primary) hypertension
CPT/HCPCS: 93010; 99214

== ENCOUNTER → 2024-11-11 12:24 | Outpatient (BNVA) | payer OTHER, SELFPAY | PROVIDERS: PCP Family Medicine; Visit Provider Internal Medicine Cardiovascular Disease | DX: I25.10 Atherosclerotic heart disease of native coronary artery without angina pectoris (principal); I10 Essential (primary) hypertension; E11.9 Type 2 diabetes mellitus without complications | CPT/HCPCS: 93005 ==

== ENCOUNTER 2024-11-29 11:39 | Outpatient (REF) | payer OTHER, SELFPAY ==
[2024-11-29 12:04] LABS: MANUAL DIFF FLAG NO
--- OUTSIDE RECORDS SUMMARY | 2024-11-29 12:23 | XMS_ITS | Clinical Summary ---
Author Organization [employer] [facility] ity Address [address] [place] [address] Care Team Providers Care Slot Floorman Name Role Phone Unavailable Primary Care Provider Unavailabl e Social History Tobacco Use Types Packs/Day Years Used Date Smoking Tobacco: Never Assessed Sex and Gender Information Value Date Recorded Sex Assigned at Not on file Gender Identity Not on file Sexual Orientation Not on file Plan of Treatment Health Maintenance Due Date Last Done Comments DTaP,Tdap,and Td Vaccines (1 - Tdap) 1981 Zoster Vaccines (1 of 2) 2012 Cholesterol Screening (Lipid Panel) 11/28/2023 Colorectal Cancer Screening: Colonoscopy 11/28/2023 Depression Screening 11/28/2023 HIV Screening 11/28/2023 Hepatitis C Screening 11/28/2023 Social Influencers of Health Screening 11/28/2023 COVID-19 Vaccine ( - 2023-2 5 season) 2024 Influenza Vaccine (#1) 2024 RSV Immunization Patients 60 + Years Old (1 - 1-dose 75+ series) 2037 HIB Vaccines Aged Out No longer eligi ble based on patient's age to complete this topic HPV Vaccines Aged Out No longer eligi ble based on patient's age to complete this topic Hepatitis A Vaccines Aged Out No long er eligible based on patient's age to complete this topic Hepatitis B Vaccines Aged Out No long er eligible based on patient's age to complete this topic IPV Vaccines Aged Out No longer eligi ble based on patient's age to complete this topic MMR Vaccines Aged Out No longer eligi ble based on patient's age to complete this topic Meningococcal ACWY Vaccine Aged Out N o longer eligible based on patient's age to complete this topic Pneumococcal Vaccine: Pediat rics (0 to 5 Years) and At-Risk Patients (6 to 64 Years) Aged Out No longer eligible b ased on patient's age to complete this topic RSV Immunization Patients Un praveen 20 months Aged Out No longer eligible b ased on patient's age to complete this topic Varicella Vaccines Aged Out No longer eligible based on patient's age to complete this topic
--- OUTSIDE RECORDS SUMMARY | 2024-11-29 12:23 | XMS_ITS | Clinical Summary ---
Author Organization [employer] Address [address] [facility] [address] [place] [address] Care Team Providers Care Dietitian Chief Name Role Phone Unavailable Primary Care Provider Unavailabl e Social History Tobacco Use Types Packs/Day Years Used Date Smoking Tobacco: Never Assessed Sex and Gender Information Value Date Recorded Sex Assigned at Male 08/29/2022 10:16 AM EDT Legal Sex Male 10:16 AM EDT Gender Identity Choose not to disclose 10:16 AM EDT Sexual Orientation Choose not to disclose 2021 10:16 AM EDT Plan of Treatment Health Maintenance Due Date Last Done Comments CT Colonography 1962 Colonoscopy 1962 Colorectal Cancer Screening 1962 Depression Screening 1962 FIT DNA/Cologuard 1962 FIT 1962 FOBT 1962 Lipid Panel 1962 Sigmoidoscopy 1962 Alcohol/Substance Use Screening 1974 Tobacco Screening 1974 DTaP/Tdap/Td Vaccines (1 - Tdap) 1981 Pneumococcal Vaccine: 50+ Ye ars (1 of 1 - PCV) 2012 Zoster Vaccines (1 of 2) 2012 COVID-19 Vaccine ( - 2023-2 5 season) 2024 Influenza Vaccine (#1) 2024 RSV Patients and Pa tients Aged 60 years or older (1 - 1-dose 75+ series) 2037 HIB [...] patient's age to complete this topic Meningococcal Vaccine Aged Out No claude braydon eligible based on patient's age to complete this topic Pneumococcal Vaccine: Pediat rics (0 to 5 Years) and At-Risk Patients (6 to 49) Years) Aged Out No longer eligible b ased on patient's age to complete this topic RSV under 20 months Aged Out No longe r eligible based on patient's age to complete this topic Rotavirus Vaccines Aged Out No longer eligible based on patient's age to complete this topic
--- OUTSIDE RECORDS SUMMARY | 2024-11-29 12:23 | XMS_ITS | Encounter Summary ---
Author Organization [employer] [facility] Address [address] [facility] [address] [place] [address] Care Team Providers Care Metal Buildings Assembler Name Role Phone Unavailable Primary Care Provider Unavailabl e Encounter Details Date Type Department Care Team (Latest Contact Info) Description 03/24/2022 Abstract C CONVERSIONS Dental, Provider, DDS Social History Tobacco Use Types Packs/Day Years Used Date Smoking Tobacco: Never Assessed Sex and Gender Information Value Date Recorded Sex Assigned at Male 08/29/2022 10:16 AM EDT Legal Sex Male 10:16 AM EDT Gender Identity Choose not to disclose 10:16 AM EDT Sexual Orientation Choose not to disclose 2021 10:16 AM EDT documented as of this encounter Plan of Treatment Not on file documented as of this encounter Visit Diagnoses Not on filedocumented in this encounter
[2024-11-29 12:46] LABS: Basophils Absolute Auto 0.1 X10*3/uL (0.0-0.2); Eosinophils Absolute Auto 0.3 X10*3/uL (0.0-0.4); Eosinophils Percent Auto 5.6 % (0-4); Hematocrit 40.4 % (42.0-52.0); Hemoglobin 13.8 g/dl (14.0-18.0); Imm Gran Abs Auto 0.01 X10*3/uL (0.00-0.03); Imm Gran Pct Auto 0.2 % (0.0-0.4); Lymphocytes Absolute Auto 2.1 X10*3/uL (1.2-4.9); Lymphocytes Percent Auto 36.5 % (20-40); Mean Corpuscular HGB Conc 34.2 g/dl (31.0-36.0); Mean Corpuscular Hemoglobin 28.6 pg (27.0-33.0); Mean Corpuscular Volume 83.6 fL (80.0-98.0); Mean Platelet Volume 9.4 fL (9.4-12.4); Monocytes Absolute Auto 0.5 X10*3/uL (0.1-1.2); Monocytes Percent Auto 7.8 % (2-11); Neutrophils Absolute Auto 2.8 x10*3/uL (2.0-8.3); Neutrophils Percent Auto 48.9 % (45-73); Platelet Count 251 X10*3/uL (160-400); Red Blood Count 4.83 X10*6/uL (4.60-5.80); Red Cell Distribution Width 13.3 % (11.0-16.0); White Blood Count 5.8 X10*3/uL (4.8-10.8)
[2024-11-29 13:25] LABS: Alanine Aminotransferase 66 U/L (0-40); Albumin Level 4.7 g/dL (3.5-5.0); Alkaline Phosphatase 72 U/L (39-117); Anion Gap 12 (12-20); Aspartate Amino Transferase 56 U/L (5-37); Bilirubin Direct 0.4 mg/dL (0.0-0.5); Bilirubin Total 1.2 mg/dL (0.0-1.0); Blood Urea Nitrogen 11 mg/dL (9-16); Calcium 9.5 mg/dL (8.4-10.2); Carbon Dioxide 27 mmol/L (22-29); Chloride 107 mmol/L (96-108); Estimated Glomerular Filt Rate > 60; Glucose Random 115 mg/dL (60-115); Potassium 4.2 mmol/L (3.3-5.1); Sodium 142 mmol/L (135-145); Total Protein 7.8 g/dL (6.5-8.0)
[2024-11-30 15:13] LABS: HIV RNA PCR Qn Copies NOT DETECTED copies/mL (NOT DETECTED); HIV RNA PCR Qn Log Copies NOT DETECTED (NOT DETECTED)
[2024-12-04 16:14] LABS: Absolute CD3 Count 1674 cells/uL (840-3060); Absolute CD4 Count 1061 cells/uL (490-1740); Absolute CD8 Count 590 cells/uL (180-1170); Absolute Lymphocytes 2204 cells/uL (850-3900); Percent CD3 Cells 76 % (57-85); Percent CD4 Cells 48 % (30-61); Percent CD8 Cells 27 % (12-42)
== END 2024-11-29 11:40 | disposition home or self-care (01) ==
LOC: HO.LAB 11:39
PROVIDERS: PCP Family Medicine; Visit Provider Internal Medicine
DX: Z21 Asymptomatic human immunodeficiency virus [HIV] infection status (principal)
CPT/HCPCS: 36415; 80048; 80076; 85025; 86359; 86360; 87536

== ENCOUNTER 2024-12-09 12:55 | Outpatient (AMB) | payer OTHER, SELFPAY ==
--- NOTE | 2024-12-09 13:01 | MHC.OFFVIS ---
Intake Visit Reasons: ejaculatory disoder Intake Note: Patient is present for pain with ejaculation Urology Medication:TAMSULOSIN Antibiotic Allergy:NONE Blood Thinner:ASPIRIN Automatic Brine Mixer Operator Required: No Allergies lisinopril Adverse Reaction (Intermediate, Verified 12/09/24 13:02) Dry cough HPI Comments Details: 12/09/2024--Cam is here evaluation. He states that he had some difficulty with urination hesitancy slowing of the urinary stream. He states that his primary care provider started him on tamsulosin. He states that since being on the tamsulosin he no longer sees seen in was ejaculation and also has pain with ejaculation. Us because we are tamsulosin works by nursing the bladder neck and prostate due to the ejaculatory ducts the within the prostatic urethra it is normal to get retrograde or I dilation as a side-effect of tamsulosin use medications actually working. I have discussed that pain with ejaculation is not a common side effect with Zosyn use. He states that he is very bothered by the pain with ejaculation so I have discussed discontinuing the medication to see if the symptoms resolve and we can reassess a treatment plan for his obstructive voiding [facility] Medical History Diverticulosis Tubular adenoma of colon Sleep apnea HIV (human immunodeficiency virus infection) Fatty liver Coronary artery disease Hyperlipidemia Essential hypertension Diabetes Surgical History Stented coronary artery Hx of shoulder surgery H/O colonoscopy History of biopsy Social History Housing: House Alcohol intake: never Patient Tobacco Use Status: Never used Tobacco e-Cigarette/Vaping Use: Never Used Second Hand Smoke Exposure: No service: Yes Current occupational status: employed 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 Current occupational exposures/hazards: No Cognitive needs: No Hearing needs: No Vision needs: Yes (reading glasses) Review of Systems Const All systems reviewed & are unremarkable except as noted in HPI and below Reports no additional complaints Eyes Reports no additional complaints ENT Reports no additional complaints Card Reports no additional complaints Resp Reports no additional complaints GI Reports no additional complaints Reports as per HPI Musc Reports no additional complaints Skin/Breast Reports system reviewed and no additional complaints, except as documented Neuro Reports no additional complaints Psych Reports no additional complaints Endo Reports no additional complaints Austen/Lymph Reports no additional complaints Aller/Immun Reports no additional complaints Assessment & Plan Assessment & Plan Orders: Orders AMB Urinalysis Automated Today Z13.9 - Encounter for screening, unspecified Coding
== END 2024-12-09 13:44 | disposition home or self-care (01) ==
PROVIDERS: PCP Family Medicine; Visit Provider Urology
DX: Z13.9 Encounter for screening, unspecified (principal)

== ENCOUNTER → 2024-12-09 12:55 | Outpatient (BNVA) | payer OTHER, SELFPAY | PROVIDERS: PCP Family Medicine; Visit Provider Urology | DX: N40.1 Benign prostatic hyperplasia with lower urinary tract symptoms (principal); R35.1 Nocturia; N53.12 Painful ejaculation | CPT/HCPCS: 81003 ==

== ENCOUNTER 2024-12-23 07:48 | Outpatient (AMB) | payer OTHER, SELFPAY ==
--- OUTSIDE RECORDS SUMMARY | 2024-12-23 07:59 | XMS_ITS | Encounter Summary ---
Author Organization [employer] [facility] Address [address] [facility] [address] [place] [address] Care Team Providers Care Lawyer Criminal Name Role Phone Unavailable Primary Care Provider [...]
--- OUTSIDE RECORDS SUMMARY | 2024-12-23 07:59 | XMS_ITS | Clinical Summary ---
Author Organization [employer] Address [address] [facility] [address] [place] [address] Care Team Providers Care Supervisor Finish End Name Role Phone Unavailable Primary Care Provider [...]
--- OUTSIDE RECORDS SUMMARY | 2024-12-23 07:59 | XMS_ITS | Clinical Summary ---
Author Organization [facility] [employer] [facility] ity Address [address] [place] [address] Care Team Providers Care Entertainment Reporter Name Role Phone Unavailable Primary Care Provider Unavailabl e Social History Tobacco Use Types Packs/Day Years Used Date Smoking Tobacco: Never Assessed Sex and Gender Information Value Date Recorded Sex Assigned at Not on file Legal Sex Male 5:07 PM EST Gender Identity Not on file Sexual Orientation Not on file Plan of Treatment Health Maintenance Due Date Last Done Comments DTaP,Tdap,and Td Vaccines (1 - Tdap) 1981 Pneumococcal Vaccine: 50+ Ye ars (1 of 1 - PCV) 2012 Zoster Vaccines (1 of 2) 2012 Cholesterol Screening (Lipid Panel) 11/28/2023 Colorectal Cancer Screening: Colonoscopy 11/28/2023 Depression Screening 11/28/2023 HIV Screening 11/28/2023 Hepatitis C Screening 11/28/2023 Social Influencers of Health Screening 11/28/2023 COVID-19 Vaccine (1 - 2023-2 5 season) 2024 Influenza Vaccine [...] patient's age to complete this topic Meningococcal B Vacine Aged Out No lo nger eligible based on patient's age to complete [...]
[2024-12-23 08:01] VITALS: BP 124/74; PULSE 58; O2SAT 96; BMI 30.7
--- NOTE | 2024-12-23 08:01 | A.OFFVIS_ITS ---
Vital Signs 12/23/24 08:01 Height 5 ft 6 in Weight 190 lb 7.67 oz BMI 30.7 BP 124/74 Blood Pressure Location Lt brachial Position Sitting Pulse 58 Pulse Source Pulse Oximeter Pulse Oximetry (%) 96 Oxygen Delivery Method Room Air Intake Visit Reasons: T2DM w/o complications Intake Note: Patient present today for Type 2 Diabetes Mellitus Last Diabetic eye exam: 08/2024 Last Podiatry Visit: Doesn't have one Random Glucose: 151 mg/dl HgA1C: 7.9% 10/14/24 Field Party Manager Required: No Accompanied by: Self / Same As Patient Allergies lisinopril Adverse Reaction (Intermediate, Verified 12/23/24 08:05) Dry cough Medication List - Last Reconciled 12/23/24 by Lety Forde MD amlodipine 10 mg PO DAILY 90 days ascorbate calcium (vitamin C) 1,000 mg PO DAILY aspirin 81 mg PO DAILY 90 days fukoiqjda-rxhtlrxw-dyfbcmx ala 50-200-25 mg (Biktarvy) 1 tab PO DAILY 30 days coenzyme Q10 (Co Q-10) 100 mg PO DAILY ezetimibe (Zetia) 10 mg PO DAILY 90 days loratadine 10 mg PO DAILY losartan 50 mg PO DAILY 90 days metformin 250 mg pm and 500 mg am orally 2 times a day; 90 days metoprolol succinate ER 50 mg PO BEDTIME 90 days omega-3 fatty acids 500 mg PO BID 90 days omeprazole 20 mg PO BID 90 days rosuvastatin 20 mg PO BEDTIME 90 days sennosides (senna) 1.25 mg (0.1453 x 8.6 mg) PO BEDTIME tamsulosin 0.4 mg PO BEDTIME HPI Comments Details: 64-year-old male coming in today for initial evaluation of type 2 diabetes mellitus. Otherwise medical history significant for CAD, AYUSH on CPAP, hypertension, metabolic dysfunction associated fatty liver disease. On HIV meds. History of diabetes Diagnosed when he was in 50s Prior therapy: Jardiance 10 mg daily (havent taken since July 2024) insurance covergae stopped never been on insulin Current meds Metformin 500 mg in AM and 250 mg in afternoon Denies any symptoms of hyperglycemia including polyphagia, polyuria, polydipsia. Denies any hypoglycemic symptoms. Random Glucose: 151 mg/dl HgA1C: 7.9% 10/14/24 SMBG's In the afternoon, 15 mins after eating anywhere from 80s to 130s. Vaccines: Got flu vaccine this season Complications Last Diabetic eye exam: 08/2024 No retinpathy Last Podiatry Visit: Doesn't have one Neuropathy: none Kidney disease: none Macrovascular complications: [place] 2019 , s/p PCI, no stroke Based on labs from October 2024, Fib 4 score 1.70: Further investigation needed, NAFLD score:-0.90: Indeterminate Had liver elastography in 2021 which showed fatty liver disease. Statin: on rosuvastatin 20 mg daily and zetia 10 mg daily, LDL 06/22 at goal 34 mg/dl, low HDL DEN/ARB: on losartan 50 mg Exercise: Not much Diet control: Breakfast and dinner No sodas Sometimes does have desserts and donuts He has never had any hospitalizations for hyperglycemia/hypoglycemia. no alcohol no pancreatitis No gallstones No family history of thyroid cancer Physical exam General: sitting comfortably in no acute distress HEENT: normocephalic/atraumatic, Neck: supple, symmetrical, no thyromegaly Cardiac: normal heart sounds Pulm: normal breath sounds B/L, no added breath sounds Abd: not distended, no tenderness Extremities: no edema, no signs of myxedema Neuro: AAO x3, Speech: normal, no facial droop, moving all 4 extremities Skin: no rash Foot exam: intact sensation to monofilament, intact pulses, intact vibration Laboratory Tests 11/25/22 09/04/23 12/04/23 09:36 14:44 14:52 Plt Count Sodium Potassium Creatinine Estimated GFR Fasting Glucose Hgb A1c (Clinic) 6.6 H 6.7 H AST ALT Triglycerides Cholesterol LDL Cholesterol, Calc HDL Cholesterol Urine Creatinine 104.81 Urine Microalbumin 8.0 Microalb/Creat Ratio 7.6 03/18/24 06/17/24 10/14/24 16:19 10:47 17:05 Plt Count Sodium Potassium Creatinine Estimated GFR Fasting Glucose 118 H Hgb A1c (Clinic) 6.7 H 7.9 H AST ALT Triglycerides 151 H Cholesterol 92 LDL Cholesterol, Calc 34 HDL Cholesterol 28 L Urine Creatinine Urine Microalbumin Microalb/Creat Ratio 11/29/24 11:56 Plt Count 251 Sodium 142 Potassium 4.2 Creatinine 0.81 Estimated GFR > 60 Fasting Glucose Hgb A1c (Clinic) AST 56 H ALT 66 H Triglycerides Cholesterol LDL Cholesterol, Calc HDL Cholesterol Urine Creatinine Urine Microalbumin Microalb/Creat Ratio US ABDOMEN LIMITED WITH LIVER ELASTOGRAPHY 09/05/22 CLINICAL INFORMATION: Abnormal liver function tests COMPARISON: None. TECHNIQUE: Real-time imaging of the abdominal viscera. Noninvasive ultrasound liver fibrosis assessment is performed using Divya ElastPQ point quantification shear wave elastography (2D-SWE) with a C5-2 MHz transducer. Multiple elastography samples are obtained. FINDINGS: PANCREAS: Not well visualized due to bowel gas LIVER: Enlarged echogenic liver probably representing fatty infiltration. Hypoechoic area adjacent to the gallbladder, characteristic location of focal fatty sparing. No other focal lesion or intrahepatic biliary duct dilatation. The right lobe measures 19 cm in length. The left lobe measures 12 cm in length. Portal flow is normal/hepatopedal Shear wave liver elastography median stiffness is 1.4 m/s (reference: normal median stiffness is 1.3 m/s or less). IQR/median stiffness to assess sampling precision is 0.01 (reference: good quality data set is IQR/median stiffness of 0.15 or less). GALLBLADDER: Normal. The gallbladder is physiologically distended without evidence of stones, sludge, polyps, wall thickening or pericholecystic fluid. COMMON BILE DUCT: Normal in caliber measuring 0.5 cm in diameter. RIGHT KIDNEY: Normal. No hydronephrosis. No renal calculi or focal parenchymal lesions. The kidney measures 13.7 cm in maximum dimension. FREE FLUID: None. US/US abdomen licona w elastography IMPRESSION: 1. Impression: Enlarged echogenic liver suggestive of fatty infiltration. Pancreas not well visualized 2. Liver elastography: Adequate liver sampling. In the absence of other known clinical signs, rules out compensated advanced chronic liver disease. [facility] Medical History (Updated 12/23/24 @ 08:50 by Lety Forde MD) Obesity (BMI 30.0-34.9) Metabolic dysfunction-associated fatty liver disease (MAFLD) Diverticulosis Tubular adenoma of colon Sleep apnea HIV (human immunodeficiency virus infection) Fatty liver Coronary artery disease Hyperlipidemia Essential hypertension Diabetes Surgical History Stented coronary artery Hx of shoulder surgery H/O colonoscopy History of biopsy Social History Housing: House Alcohol intake: never Patient Tobacco Use Status: Never used Tobacco e-Cigarette/Vaping Use: Never Used Second Hand Smoke Exposure: No service: Yes Current occupational status: employed 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 Current occupational exposures/hazards: No Cognitive needs: No Hearing needs: No Vision needs: Yes (reading glasses) Assessment & Plan Assessment & Plan (1) Diabetes: Code(s): E11.9 - Type 2 diabetes mellitus without complications Category: Medical Qualifiers: Diabetes mellitus complication status: with hyperglycemia Diabetes mellitus termite control representative insulin use: without termite control representative use Diabetes mellitus type: type 2 Qualified Code(s): E11.65 - Type 2 diabetes mellitus with hyperglycemia Plan: 64-year-old male with type 2 diabetes mellitus diagnosed in his 50s, with complications of CAD, AYUSH, obesity, metabolic dysfunction associated liver disease who is coming in today to establish care. A1c from September 2024 elevated at 7.9% which is worsened from his past A1c of 6.7% from February 2024. He was previously on metformin plus Jardiance, however since July 2024 his insurance has not been covering Jardiance resulting in not being able to orange picking supervisor his prescription and worsened control of hyperglycemia. At this time he has uncontrolled hyperglycemia with pre meal sugars in the 130s, and he has not been checking post meal blood sugars. I told him importance of monitoring both fasting as well as 2 hours post meal. Given history of CAD, metabolic dysfunction associated liver disease, obesity we will uncontrolled hyperglycemia he would be an excellent candidate of for GLP 1 agonist. He does not drink alcohol, has no history of pancreatitis, no family history of thyroid cancer. I discussed with him side effects of GI intolerance, medullary thyroid cancer seen in rodents, risk of pancreatitis. At this time he is agreeable to start the medication. I will also increase his metformin. Plan: -increase metformin to 500 mg twice daily -start Ozempic 0.25 mg weekly, and once if taken about 3 or 4 injections, patient will call us to up titrate dose to 0.5 mg weekly -advised 150 minutes of exercise in a week, 30 minutes 5 days a week -up to date with eye visit, no history of retinopathy -foot exam done today, unremarkable -discussed importance of monitoring blood sugars with target blood sugar readings -discussed risks of hyperglycemia with both microvascular and macrovascular complications. -follow up in 3 months with repeat labs (2) Essential hypertension: Code(s): I10 - Essential (primary) hypertension Category: Medical Plan: Blood pressure within goal range. Continue current regimen of amlodipine, losartan and metoprolol. (3) Metabolic dysfunction-associated fatty liver disease (MAFLD): Code(s): K76.0 - Fatty (change of) liver, not elsewhere classified Category: Medical Plan: Fib 4 score 1.70 which is indeterminate, further investigation needed. NAFLD score is-0.90 which is also indeterminate. He already follows with GI, I told him that at this time we are already starting him on Ozempic, and also mentioned importance of lifestyle modification with a voiding trans and saturated fats as well as aiming for 7% weight loss. However I also told him that his last liver elastography was in 2021, and he would be further evaluation for investigation for liver fibrosis. Told him to discuss further with GI as he is already seeing them. Patient verbalized understanding. Plan: -follow up with GI -start Ozempic 0.25 mg weekly with plan for up titration of dose in 4 weeks -lifestyle modification advised with 30 minutes of exercise daily and avoiding transient saturated fats (4) Obesity (BMI 30.0-34.9): Code(s): E66.811 - Obesity, class 1 Category: Medical Plan: At this time he has uncontrolled hyperglycemia with pre meal sugars in the 130s, and he has not been checking post meal blood sugars. I told him importance of monitoring both fasting as well as 2 hours post meal. Given history of CAD, metabolic dysfunction associated liver disease, obesity we will uncontrolled hyperglycemia he would be an excellent candidate of for GLP 1 agonist. He does not drink alcohol, has no history of pancreatitis, no family history of thyroid cancer. I discussed with him side effects of GI intolerance, medullary thyroid cancer seen in rodents, risk of pancreatitis. At this time he is agreeable to start the medication. Plan: -advised 30 minutes of exercise daily -discussed importance of portion control, calorie deficit -start Ozempic 0.25 mg weekly with plan for up titration after 4 doses (5) Hyperlipidemia: Code(s): E78.5 - Hyperlipidemia, unspecified Category: Medical Qualifiers: Hyperlipidemia type: mixed hyperlipidemia Qualified Code(s): E78.2 - Mixed hyperlipidemia Plan: LDL from May 2024 within goal of less than 50 mg/dL given history of CAD. Plan: -repeat lipid panel ordered -continue Zetia 10 mg daily and rosuvastatin 20 mg daily Plan I spent 60 minutes in reviewing the record, seeing the patient and documenting in the medical record. Orders: Orders Microalbumin, Random (w Creat) Today E11.65 - Type 2 diabetes mellitus with hyperglycemia, K76.0 - Fatty (change of) liver, not elsewhere classified Lipid Panel Today E11.65 - Type 2 diabetes mellitus with hyperglycemia, K76.0 - Fatty (change of) liver, not elsewhere classified Comprehensive [place]. Panel Fast Today E11.65 - Type 2 diabetes mellitus with hyperglycemia, K76.0 - Fatty (change of) liver, not elsewhere classified Vitamin B12 Today E11.65 - Type 2 diabetes mellitus with hyperglycemia, K76.0 - Fatty (change of) liver, not elsewhere classified Medications: New semaglutide (Ozempic) for 4 weeks 0.25 mg (0.368 mL) subcut QWEEK 3 mL 0RF Changed From metformin 250 mg pm and 500 mg am orally 2 times a day; 90 days 135 tabs 3RF To metformin 500 mg PO BID 90 days 180 tabs 3RF Patient Instructions: Increase metformin to 500 mg twice daily Start Ozempic 0.25 mg weekly injection, if you have issues with insurance /cost, please call insurance to figure out which GLP1 agonist would be cheapest/covered for you and let us know Once you start this medication, after taking 3/4 injections please let us know if tolerating well and I will increase it to 0.5 mg weekly Walk 30 mins 5 days a week Do fasting blood work and urine test prior to next appointment Check blood sugars once daily , some days fasting with goal target of 80 to 110 mg/dl and some times 2 hours post meal with goal target of <140 mg/dl Once you orange picking supervisor Ozempic, call our office for a nurse visit to have her teaach you Coding Level of Care Code New Pt Level 5 (62048) Complex EM visit Add On G2211 Diagnoses Type 2 diabetes mellitus with hyperglycemia, without long-term current use of insulin E11.65 Diabetes mellitus complication status: with hyperglycemia Diabetes mellitus termite control representative insulin use: without termite control representative use Diabetes mellitus type: type 2 Essential hypertension I10 Metabolic dysfunction-associated fatty liver disease (MAFLD) K76.0 Obesity (BMI 30.0-34.9) E66.811 Mixed hyperlipidemia E78.2 Hyperlipidemia type: mixed hyperlipidemia Time Spent (min) 60
[2024-12-23 08:11] LABS: Glucose, Whole Blood 151 mg/dL (60-115)
== END 2024-12-23 08:41 | disposition home or self-care (01) ==
PROVIDERS: PCP Family Medicine; Visit Provider Student in an Organized Health Care Education/Training Program
DX: E11.65 Type 2 diabetes mellitus with hyperglycemia (principal); I10 Essential (primary) hypertension; K76.0 Fatty (change of) liver, not elsewhere classified; E66.811 Obesity, class 1; E78.2 Mixed hyperlipidemia
CPT/HCPCS: 99205

== ENCOUNTER → 2024-12-23 07:48 | Outpatient (BNVA) | payer OTHER, SELFPAY | PROVIDERS: PCP Family Medicine; Visit Provider Student in an Organized Health Care Education/Training Program | DX: Z21 Asymptomatic human immunodeficiency virus [HIV] infection status (principal); E11.65 Type 2 diabetes mellitus with hyperglycemia; I10 Essential (primary) hypertension; K76.0 Fatty (change of) liver, not elsewhere classified; E66.811 Obesity, class 1; Z68.30 Body mass index [BMI] 30.0-30.9, adult; E78.2 Mixed hyperlipidemia; Z79.84 Long term (current) use of oral hypoglycemic drugs; Z79.899 Other long term (current) drug therapy | CPT/HCPCS: 82947 ==

== ENCOUNTER 2024-12-23 15:53 | Outpatient (AMB) | payer OTHER, SELFPAY ==
[2024-12-23 16:11] VITALS: PULSE 76; O2SAT 96; BMI 31.3
--- NOTE | 2024-12-23 16:11 | MHC.OFFVIS ---
Vital Signs 12/23/24 16:11 Height 5 ft 6 in Weight 194 lb BMI 31.3 Pulse 76 Pulse Source Pulse Oximeter Pulse Oximetry (%) 96 Oxygen Delivery Method Room Air Intake Visit Reasons: hiv 6 month follow up Meat Department Manager Required: No Meat Department Manager Services: Meat Department Manager Offered & Declined Allergies lisinopril Adverse Reaction (Intermediate, Verified 12/23/24 16:12) Dry cough tamsulosin Allergy (Unknown, Uncoded 12/23/24 16:35) Unknown HPI HPI hiv 6 month follow up: Details: He has been doing well. He takes Biktarvy and has CD4 count of 1061 and viral load undetectable on 11/29. He is up to date on healthcare maintenance. PENDING SALE TO [facility] Medical History Obesity (BMI 30.0-34.9) Metabolic dysfunction-associated fatty liver disease (MAFLD) Diverticulosis Tubular adenoma of colon Sleep apnea HIV (human immunodeficiency virus infection) Fatty liver Coronary artery disease Hyperlipidemia Essential hypertension Diabetes Surgical History Stented coronary artery Hx of shoulder surgery H/O colonoscopy History of biopsy Social History Housing: House Alcohol intake: never Patient Tobacco Use Status: Never used Tobacco e-Cigarette/Vaping Use: Never Used Second Hand Smoke Exposure: No service: Yes Current occupational status: employed 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 Current occupational exposures/hazards: No Cognitive needs: No Hearing needs: No Vision needs: Yes (reading glasses) Review of Systems Const All systems reviewed & are unremarkable except as noted in HPI and below Physical Exam Vital Signs: Last Vital Signs Pulse 76 12/23/24 16:11 Pulse Ox 96 12/23/24 16:11 Oxygen Delivery Method Room Air 12/23/24 16:11 BMI result Body Mass Index 31.3 Const General: cooperative Orientation/consciousness: patient oriented x3 HEENT Head: Yes normal to inspection Mouth: Normal oral and palatal mucosa present Eyes General: appearance normal, both eyes and all related structures Pupils: Equal, round and reactive pupils present Resp Effort & Inspection: normal respiratory effort Cardio Rate: regular rate Rhythm: regular rhythm GI Palpation (GI): Soft to palpation and nontender General: Yes no CVA tenderness Back/Spine/Pelvis Back: no CVA tenderness Skin General skin exam: no rashes or lesions noted Neuro General: patient oriented x3 Cranial nerves: Yes CN's II-XII intact bilaterally and Yes Equal, round and reactive pupils present Extrem General: Yes normal to inspection Psych Appearance: grossly normal Assessment & Plan Assessment & Plan (1) HIV positive: Comment: He is doing well. He takes Biktarvy daily. His viral load undetectable and CD4 count appropriate. Code(s): Z21 - Asymptomatic human immunodeficiency virus [HIV] infection status Category: Medical Plan: See in six months Refill medication. Anal Pap declined for today,possible next visit. Coding Level of Care Code Est Pt Level 4 (53487) Diagnoses HIV positive Z21
--- OUTSIDE RECORDS SUMMARY | 2024-12-23 18:08 | XMS_ITS | Clinical Summary ---
Author Organization [facility] [employer] [facility] ity Address [address] [place] [address] Care Team Providers Care Carding Doubler Name Role Phone Unavailable Primary Care Provider [...]
--- OUTSIDE RECORDS SUMMARY | 2024-12-23 18:08 | XMS_ITS | Clinical Summary ---
Author Organization [employer] Address [address] [facility] 7t [place] [address] Care Team Providers Care Manager File Name Role Phone Unavailable Primary Care Provider [...]
--- OUTSIDE RECORDS SUMMARY | 2024-12-23 18:08 | XMS_ITS | Encounter Summary ---
Author Organization [facility] [facility] Address [address] [facility] 7t [place] [address] Care Team Providers Care Coverage Analyst Name Role Phone Unavailable Primary Care Provider [...]
== END 2024-12-23 16:30 | disposition home or self-care (01) ==
PROVIDERS: PCP Family Medicine; Visit Provider Internal Medicine
DX: Z21 Asymptomatic human immunodeficiency virus [HIV] infection status (principal)
CPT/HCPCS: 99214

== ENCOUNTER 2025-02-03 09:43 | Outpatient (REF) | payer OTHER, SELFPAY ==
--- NOTE | ~2025-02-03 | US_ITS ---
CLINICAL HISTORY: N48.30 - Priapism, unspecified US Renal Comparison: None Findings: Right kidney normal size and echotexture, 13 cm length. Left kidney normal size and echotexture, 12.5 cm length. 4 mm lower pole cyst. Pelviectasis of the right kidney. Normal color Doppler. Urinary bladder is unremarkable. Prevoid volume 482 mL. Postvoid volume 99 mL. Bilateral ureteral jets are visualized. Prostate gland 2.5 x 2.9 x 4.3 cm with volume of 24 mL. IMPRESSION: Pelviectasis of the right kidney. Postvoid urinary retention of the bladder. The size of the prostate gland is within normal limits. This document has been electronically signed by: Leeanna Curiel MD on 02/03/2025 16:38:18
--- OUTSIDE RECORDS SUMMARY | 2025-02-03 11:11 | XMS_ITS | Encounter Summary ---
Author Organization [employer] [facility] Address [address] [facility] 7t [place] [address] Care Team Providers Care Clerical Investigator Name Role Phone Unavailable Primary Care Provider [...]
--- OUTSIDE RECORDS SUMMARY | 2025-02-03 11:11 | XMS_ITS | Clinical Summary ---
Author Organization [employer] Address [address] [facility] 7t [place] [address] Care Team Providers Care Trim Operator Name Role Phone Unavailable Primary Care Provider [...]
--- OUTSIDE RECORDS SUMMARY | 2025-02-03 11:11 | XMS_ITS | Clinical Summary ---
Author Organization [facility] Address [address] [place] [address] Care Team Providers Care Fitter And Turner Name Role Phone Unavailable Primary Care Provider [...] - 2023-2 5 season) 2024 Influenza Vaccine (Season Ended) 2025 RSV Immunization Adult Patie nts (1 - 1-dose 75+ series) 2037 HIB [...]
== END 2025-02-03 09:44 | disposition home or self-care (01) ==
LOC: HO.US 09:43
PROVIDERS: PCP Family Medicine; Visit Provider Urology
DX: N48.30 Priapism, unspecified (principal); R35.1 Nocturia; N53.14 Retrograde ejaculation
CPT/HCPCS: 76770

== ENCOUNTER → 2025-02-03 09:45 | Outpatient (BNV) | payer OTHER, SELFPAY | PROVIDERS: PCP Family Medicine; Visit Provider Nuclear Medicine | DX: N48.30 Priapism, unspecified (principal) | CPT/HCPCS: 76770 ==

== ENCOUNTER 2025-02-24 15:53 | Outpatient (AMB) | payer OTHER, SELFPAY ==
--- NOTE | 2025-02-24 16:06 | MHC.OFFVIS ---
Intake Visit Reasons: 10 weeks follow up/ US Intake Note: Patient is present for a 10 week follow up/US Urology Medication:TAMSULOSIN Antibiotic Allergy:NONE Blood Thinner:ASPIRIN Nocturnist Physician Required: No Allergies lisinopril Adverse Reaction (Intermediate, Verified 03/17/25 08:03) Dry cough tamsulosin Allergy (Unknown, Uncoded 03/17/25 08:03) Unknown Medication List - Last Reconciled 02/24/25 by Ankur Olson MD amlodipine 10 mg PO DAILY 90 days ascorbate calcium (vitamin C) 1,000 mg PO DAILY aspirin 81 mg PO DAILY 90 days qcgczqegc-wmctdmky-fhsidng ala 50-200-25 mg (Biktarvy) 1 tab PO DAILY 30 days coenzyme Q10 (Co Q-10) 100 mg PO DAILY ezetimibe 10 mg PO DAILY loratadine 10 mg PO DAILY losartan 50 mg PO DAILY 90 days metformin 500 mg PO BID 90 days metoprolol succinate ER 50 mg PO BEDTIME 90 days omega-3 fatty acids 500 mg PO BID 90 days omeprazole 20 mg PO BID 90 days rosuvastatin 20 mg PO BEDTIME 90 days semaglutide (Ozempic) 0.5 mg (0.736 mL) subcut QWEEK sennosides (senna) 1.25 mg (0.1453 x 8.6 mg) PO BEDTIME HPI Comments Details: 02/24/2025--Cam is here for follow-up. He states that he had some difficulty with urination hesitancy slowing of the urinary stream. He is on tamsulosin. He was sent for renal ultrasound. I reviewed renal ultrasound 02/03/2025 essentially within normal limits. The patient has concerns regarding curvature of penis Peyronie's. I will start him on pentoxifylline and vitamin-E. I will refer him to Dr. Baez for further evaluation repeating injection therapy if there is no significant improvement. Results: - US renal 02/03/25--Pelviectasis of the right kidney. Urinary bladder is unremarkable. Prevoid volume 482 mL. Postvoid volume 99 mL. Prostate gland 2.5 x 2.9 x 4.3 cm with volume of 24 mL. 12/09/2024--Cam is here evaluation. He states that he had some difficulty with urination hesitancy slowing of the urinary stream. He states that his primary care provider started him on tamsulosin. He states that since being on the tamsulosin he no longer sees semen with ejaculation and also has pain with ejaculation. I have discussed that tamsulosin works by relaxing the muscles at the bladder neck and prostate and as the ejaculatory ducts are within the prostatic urethra it is normal to get retrograde or dry ejaculation as a side-effect of tamsulosin use. I have discussed that pain with ejaculation is not a common side effect with tamsulosin use. He states that he is very bothered by the pain with ejaculation so I have discussed discontinuing the medication to see if the symptoms resolve and we can reassess a treatment plan for his obstructive voiding. Will check an US retroperitoneal. [facility] Medical History Obesity (BMI 30.0-34.9) Metabolic dysfunction-associated fatty liver disease (MAFLD) Diverticulosis Tubular adenoma of colon Sleep apnea HIV (human immunodeficiency virus infection) Fatty liver Coronary artery disease Hyperlipidemia Essential hypertension Diabetes Surgical History Stented coronary artery Hx of shoulder surgery H/O colonoscopy History of biopsy Social History Housing: House Alcohol intake: never Patient Tobacco Use Status: Never used Tobacco e-Cigarette/Vaping Use: Never Used Second Hand Smoke Exposure: No service: Yes Current occupational status: employed 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 Current occupational exposures/hazards: No Cognitive needs: No Hearing needs: No Vision needs: Yes (reading glasses) Review of Systems Const All systems reviewed & are unremarkable except as noted in HPI and below Reports no additional complaints Eyes Reports no additional complaints ENT Reports no additional complaints Card Reports no additional complaints Resp Reports no additional complaints GI Reports no additional complaints Reports as per HPI Musc Reports no additional complaints Skin/Breast Reports system reviewed and no additional complaints, except as documented Neuro Reports no additional complaints Psych Reports no additional complaints Endo Reports no additional complaints Austen/Lymph Reports no additional complaints Aller/Immun Reports no additional complaints Results Reviewed Results Reviewed: Date of Service: 02/03/25 CLINICAL HISTORY: N48.30 - Priapism, unspecified US Renal Comparison: None Findings: Right kidney normal size and echotexture, 13 cm length. Left kidney normal size and echotexture, 12.5 cm length. 4 mm lower pole cyst. Pelviectasis of the right kidney. Normal color Doppler. Urinary bladder is unremarkable. Prevoid volume 482 mL. Postvoid volume 99 mL. Bilateral ureteral jets are visualized. Prostate gland 2.5 x 2.9 x 4.3 cm with volume of 24 mL. IMPRESSION: Pelviectasis of the right kidney. Postvoid urinary retention of the bladder. The size of the prostate gland is within normal limits. Assessment & Plan Assessment & Plan (1) BPH loc w urin obs/LUTS: Code(s): N40.1 - Benign prostatic hyperplasia with lower urinary tract symptoms Category: Medical (2) Nocturia more than twice per night: Code(s): R35.1 - Nocturia Category: Medical (3) Peyronie's disease: Code(s): N48.6 - Induration penis plastica Category: Medical Plan pentoxifylline ER 400 mg PO BID 180 tabs 3RF 90 days vitamin E (dl, acetate) 450 mg PO DAILY 90 caps 3RF [address] Baez in 6 months for further evaluation regarding injection therapy if no significant improvement Medications: New pentoxifylline ER 400 mg PO BID 180 tabs 3RF 90 days vitamin E (dl, acetate) 450 mg PO DAILY 90 caps 3RF 90 days Patient Instructions: The patient had an opportunity to ask questions regarding treatment plan. The patient expressed understanding and agreement with the above treatment plan. The patient is aware they should contact our office by phone for worsening of their current condition or the appearance of new symptoms. Compliance is encouraged with any medications and followup testing that is ordered. It is a privilege to be allowed the opportunity to participate in the urologic care of your patient. If you have any questions or concerns regarding treatment for the above conditions please do not hesitate to contact me. The office telephone contact is [phone]. This note is constructed in part using voice recognition software. While every effort has been made to ensure accuracy cylinder press operator apprentice errors may have been included. Yours sincerely, Ankur Olson MD Coding Level of Care Code Est Pt Level 4 (14783) Diagnoses BPH loc w urin obs/LUTS N40.1 Nocturia more than twice per night R35.1 Peyronie's disease N48.6
--- OUTSIDE RECORDS SUMMARY | 2025-02-24 18:38 | XMS_ITS | Clinical Summary ---
Author Organization [facility] [employer] [facility] ity Address [address] [place] [address] Care Team Providers Care Title Examiner Name Role Phone Unavailable Primary Care Provider [...] age to complete this topic Meningococcal B Vaccine Aged Out No l onger eligible based on patient's age to complete [...]
--- OUTSIDE RECORDS SUMMARY | 2025-02-24 18:38 | XMS_ITS | Encounter Summary ---
Author Organization [employer] [facility] Address [address] [facility] 7[address] [place] [address] Care Team Providers Care Redye Hand Name Role Phone Unavailable Primary Care Provider [...]
--- OUTSIDE RECORDS SUMMARY | 2025-02-24 18:38 | XMS_ITS | Clinical Summary ---
Author Organization [employer] Address [address] [facility] 7t [place] [address] Care Team Providers Care Topographical Engineer Name Role Phone Unavailable Primary Care Provider [...]
== END 2025-02-24 16:44 | disposition home or self-care (01) ==
LOC: HO.HUSH 15:53
PROVIDERS: PCP Family Medicine; Visit Provider Urology
DX: N40.1 Benign prostatic hyperplasia with lower urinary tract symptoms (principal); R35.1 Nocturia; N48.6 Induration penis plastica
CPT/HCPCS: 99214

== ENCOUNTER 2025-02-26 11:07 | Outpatient (REF) | payer OTHER, SELFPAY ==
--- OUTSIDE RECORDS SUMMARY | 2025-02-26 12:43 | XMS_ITS | Clinical Summary ---
Author Organization [facility] [employer] [facility] ity Address [address] [place] [address] Care Team Providers Care Process Technician Name Role Phone Unavailable Primary Care Provider [...]
--- OUTSIDE RECORDS SUMMARY | 2025-02-26 12:43 | XMS_ITS | Clinical Summary ---
Author Organization [employer] Address [address] [facility] 7t [place] [address] Care Team Providers Care Clinical Application Consultant Name Role Phone Unavailable Primary Care Provider [...]
--- OUTSIDE RECORDS SUMMARY | 2025-02-26 12:43 | XMS_ITS | Encounter Summary ---
Author Organization [employer] [facility] Address [address] [facility] [address] [place] [address] Care Team Providers Care Production Machine Tender Name Role Phone Unavailable Primary Care Provider [...]
[2025-02-26 13:00] LABS: Alanine Aminotransferase 43 U/L (0-40); Albumin Level 4.5 g/dL (3.5-5.0); Alkaline Phosphatase 70 U/L (39-117); Anion Gap 13 (12-20); Aspartate Amino Transferase 36 U/L (5-37); Bilirubin Total 1.1 mg/dL (0.0-1.0); Blood Urea Nitrogen 16 mg/dL (9-16); Calcium 9.3 mg/dL (8.4-10.2); Carbon Dioxide 27 mmol/L (22-29); Chloride 104 mmol/L (96-108); Cholesterol 76 mg/dL (<200); Estimated Glomerular Filt Rate > 60; Glucose Fasting 105 mg/dL (60-99); HDL Cholesterol 27 mg/dL (>40); LDL Cholesterol Calculated 27 mg/dL (<100); Potassium 4.1 mmol/L (3.3-5.1); Sodium 140 mmol/L (135-145); Total Protein 7.2 g/dL (6.5-8.0); Triglycerides 112 mg/dL (<150)
[2025-02-26 13:28] LABS: Vitamin B12 1505 pg/mL (200-900)
[2025-02-26 13:36] LABS: Creatinine Urine 65.38 mg/dL; Microalbumin Urine < 5.0 mg/L
== END 2025-02-26 11:08 | disposition home or self-care (01) ==
LOC: HO.LAB 11:07
PROVIDERS: Student in an Organized Health Care Education/Training Program; PCP Family Medicine; Visit Provider Family Medicine
DX: Z00.00 Encounter for general adult medical examination without abnormal findings (principal); I10 Essential (primary) hypertension; K76.0 Fatty (change of) liver, not elsewhere classified; E11.65 Type 2 diabetes mellitus with hyperglycemia
CPT/HCPCS: 36415; 80053; 80061; 82043; 82570; 82607

== ENCOUNTER 2025-03-03 09:19 | Outpatient (AMB) | payer OTHER, SELFPAY ==
--- NOTE | 2025-03-03 09:48 | A.OFFPC_ITS ---
Vital Signs 03/03/25 09:51 Height 5 ft 4 in Weight 185 lb 2 oz BMI 31.8 BP 118/74 Blood Pressure Location Lt brachial Position Sitting Respiration 16 Pulse 73 Pulse Source Pulse Oximeter Temp 97.9 F Temp Source Oral Pulse Oximetry (%) 98 Oxygen Delivery Method Room Air Intake Visit Reasons: f/u diabetes, chronic conditions. Intake Note: patient is scheduled for dm follow up and chronic conditions International Student Advisor Required: No Allergies lisinopril Adverse Reaction (Intermediate, Verified 03/03/25 09:48) Dry cough tamsulosin Allergy (Unknown, Uncoded 12/23/24 16:35) Unknown Medication List - Last Reconciled 03/03/25 by Akash Diaz MD amlodipine 10 mg PO DAILY 90 days ascorbate calcium (vitamin C) 1,000 mg PO DAILY aspirin 81 mg PO DAILY 90 days fposfktxz-ayjbnplk-dbepyuc ala 50-200-25 mg (Biktarvy) 1 tab PO DAILY 30 days coenzyme Q10 (Co Q-10) 100 mg PO DAILY ezetimibe 10 mg PO DAILY loratadine 10 mg PO DAILY losartan 50 mg PO DAILY 90 days metformin 500 mg PO BID 90 days metoprolol succinate ER 50 mg PO BEDTIME 90 days omega-3 fatty acids 500 mg PO BID 90 days omeprazole 20 mg PO BID 90 days pentoxifylline ER 400 mg PO BID 90 days rosuvastatin 20 mg PO BEDTIME 90 days semaglutide (Ozempic) 0.5 mg (0.736 mL) subcut QWEEK sennosides (senna) 1.25 mg (0.1453 x 8.6 mg) PO BEDTIME vitamin E (dl, acetate) 450 mg PO DAILY 90 days Tobacco use date assessed: 03/18/24 Dental Screening Dental Screen Date: 09/04/23 HPI f/u diabetes, chronic conditions. HPI Details 64 y/o male presents to f/u diabetes, ch ronic conditions. A1c in September was 7.9%. Was started on ozempic by endocrinology. A1c today 6.5%. Denies any issues with his ozempic. BP today 118/74, 73p. [facility] Medical History Obesity (BMI 30.0-34.9) Metabolic dysfunction-associated fatty liver disease (MAFLD) Diverticulosis Tubular adenoma of colon Sleep apnea HIV (human immunodeficiency virus infection) Fatty liver Coronary artery disease Hyperlipidemia Essential hypertension Diabetes Surgical History Stented coronary artery Hx of shoulder surgery H/O colonoscopy History of biopsy Social History Housing: House Alcohol intake: never Patient Tobacco Use Status: Never used Tobacco e-Cigarette/Vaping Use: Never Used Second Hand Smoke Exposure: No service: Yes Current occupational status: employed 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 1. Little interest or pleasure in doing things: not at all 2. Feeling down, depressed, or hopeless: not at all 3. Trouble falling or staying asleep, or sleeping too much: not at all 4. Feeling tired or having little energy: not at all 5. Poor appetite or overeating: not at all 6. Feeling bad about yourself - or that you are a failure or have let yourself or your family down: not at all 7. Trouble concentrating on things, such as reading the newspaper or watching television: not at all 8. Moving or speaking so slowly that other people could have noticed. Or the opposite - being so fidgety or restless that you have been moving around a lot more than usual: not at all 9. Thoughts that you would be better off or of hurting yourself in some way: not at all Total score: 0 Source: Developed by Drs. Brett Donnelly, Jyothi Madison, Darian Patterson and colleagues, with an educational ara from [employer]. Thrive Questionnaire Date Thrive assessed: 02/24/25 I am a: Patient What is your living situation today?: I have a steady place to live Within the past 12 months, did the food you bought not last and you didn't have the money to get more?: Never true Within the past 12 months, did you worry whether your food would run out before you got money to buy more?: Never true Do you have trouble paying for medicines?: No Do you have trouble getting transportation to medical appointments?: No Do you have trouble paying your heating and electricity bill?: No Do you have trouble taking care of your child, family member or friend?: No Do you have trouble with day-to-day activities such as bathing, preparing meals, shopping, managing finances, etc.?: No Are you currently unemployed and looking for a job?: No Are you interested in more education?: No Please select the resources that you would like help with: None Currently or been in a relationship where the following occur: I choose not to answer THRIVE Score: 0 MONTSERRAT-7 AMB Questionnaire MONTSERRAT-7 Date MONTSERRAT - 7 assessed: 12/04/23 Source: Developed by Drs. Brett Donnelly, Jyothi Madison, Darian Patterson and colleagues, with an educational ara from [employer]. Review of Systems Const Denies chills, Denies fatigue, Denies fever(s), Denies headache(s) and Denies weakness ENT Denies dizziness and Denies headache(s) Card Denies dyspnea Resp Denies cough, Denies dyspnea, Denies wheezing and Denies other (shortness of breath) Musc Denies numbness and Denies tingling Neuro Denies dizziness, Denies headache(s), Denies numbness, Denies tingling and Denies weakness Psych Denies anxiety and Denies depression Endo Denies fatigue Aller/Immun Denies wheezing Physical exam (Primary Care) Vital Signs: Last Vital Signs Temp 97.9 F 03/03/25 09:51 Pulse 73 03/03/25 09:51 Resp 16 03/03/25 09:51 BP 118/74 03/03/25 09:51 Pulse Ox 98 03/03/25 09:51 Oxygen Delivery Method Room Air 03/03/25 09:51 BMI result Body Mass Index 31.8 Tobacco/Smoking Status: Tobacco use Status Tobacco use date assessed 03/18/24 03/03/25 09:52 Patient Tobacco Use Status Never used Tobacco 03/03/25 09:52 e-Cigarette/Vaping Use Never Used 03/03/25 09:52 PHQ-9: PHQ-9 Score PHQ-9: Total score 0 03/03/25 09:56 Thrive Assessment: Date of Thrive Assessment Date Thrive assessed 02/24/25 03/03/25 09:52 Currently or been in a relationship where the following occur: I choose not to answer Const General: well developed; No acute distress Nutritional Appearance: well nourished Orientation/consciousness: patient oriented x3 [facility] Head: Yes normocephalic and Yes atraumatic Eyes General: appearance normal, both eyes and all related structures Pupils: Equal, round and reactive pupils present EOM: EOMs intact bilaterally Resp Effort & Inspection: normal respiratory effort Neuro General: patient oriented x3 and gait normal Cranial nerves: Yes Equal, round and reactive pupils present Psych Affect: normal affect Coding Level of Care Code Est Pt Level 4 (86815) Diagnoses Type 2 diabetes mellitus with hyperglycemia, without long-term current use of insulin E11.65 Diabetes mellitus complication status: with hyperglycemia Diabetes mellitus correction insulin use: without manager house use Diabetes mellitus type: type 2 Essential hypertension I10 Coronary artery disease I25.10 BPH loc w urin obs/LUTS N40.1 HIV positive Z21 Trigger finger M65.30 Assessment & Plan Assessment & Plan (1) Diabetes: Code(s): E11.9 - Type 2 diabetes mellitus without complications Category: Medical Qualifiers: Diabetes mellitus complication status: with hyperglycemia Diabetes mellitus manager house insulin use: without manager house use Diabetes mellitus type: type 2 Qualified Code(s): E11.65 - Type 2 diabetes mellitus with hyperglycemia Plan: And?A1c?had?risen?to?7.6%?at?last?check?because?he?was?unable?to?get?some?of?his ?medication. Had?tried? refilling?this?but?he?was?unable?to?get?it?and?since?then?has?seen?endocrinology . Endocrinology?increased?metformin?and?added?Ozempic. He?is?taking?these?medications?without?any?problem?and?A1c?is?now ?6.5%.??Good?control.??Goal?is?less?than?7%. Continue?current?medications?and?diabetic?diet. (2) Essential hypertension: Code(s): I10 - Essential (primary) hypertension Category: Medical Plan: Blood?pressure?is?well?controlled.??Goal?is?less?than?130/80. Continue?medications (3) Coronary artery disease: Code(s): I25.10 - Atherosclerotic heart disease of [place] coronary artery without angina pectoris Category: Medical Plan: Stable Follow-up?with?Cardiology?as?recommended (4) BPH loc w urin obs/LUTS: Code(s): N40.1 - Benign prostatic hyperplasia with lower urinary tract symptoms Category: Medical Plan: Currently?symptoms?are?controlled. He?had?had?difficulty?with?tamsulosin?and?this?was?discontinued. Follow-up?with?urology?as?recommended (5) HIV positive: Comment: He is doing well. He takes Biktarvy daily. His viral load undetectable and CD4 count appropriate. Code(s): Z21 - Asymptomatic human immunodeficiency virus [HIV] infection status Category: Medical Plan: Recent?lab?work?and?visit?with?Infectious?Disease?show?he?continues?with?no?dete ctable?viral?load. Continue?Biktarvy Follow-up?with?ID?as?recommended (6) Trigger finger: Code(s): M65.30 - Trigger finger, unspecified finger Category: Medical Plan: Patient?had?had?trigger?fingers?symptoms?of?left?index?finger. Symptoms?have?improved?though?he?is?not?currently?on?any?medication. He?will?let?me?know?if?is?changes.
[2025-03-03 09:51] VITALS: BP 118/74; PULSE 73; RESP 16; TEMP 36.6; O2SAT 98; BMI 31.8
--- OUTSIDE RECORDS SUMMARY | 2025-03-03 10:08 | XMS_ITS | Encounter Summary ---
Author Organization [employer] [facility] Address [address] [facility] [address]t [place] [address] Care Team Providers Care Winch Derrick Operator Name Role Phone Unavailable Primary Care [...]
--- OUTSIDE RECORDS SUMMARY | 2025-03-03 10:08 | XMS_ITS | Clinical Summary ---
Author Organization [employer] Address [address] [facility] [address] [place] [address] Care Team Providers Care Shipyard Supervisor Name Role Phone Unavailable Primary Care Provider [...]
--- OUTSIDE RECORDS SUMMARY | 2025-03-03 10:08 | XMS_ITS | Clinical Summary ---
Author Organization [facility] [employer] [facility] ity Address [address] [place] [address] Care Team Providers Care Production Shift Supervisor Name Role Phone Unavailable Primary Care [...]
== END 2025-03-03 10:08 | disposition home or self-care (01) ==
LOC: HO.HMCFM 09:20
PROVIDERS: PCP Family Medicine; Visit Provider Family Medicine
DX: E11.65 Type 2 diabetes mellitus with hyperglycemia (principal); Z21 Asymptomatic human immunodeficiency virus [HIV] infection status; M65.322 Trigger finger, left index finger; I10 Essential (primary) hypertension; I25.10 Atherosclerotic heart disease of native coronary artery without angina pectoris; N40.1 Benign prostatic hyperplasia with lower urinary tract symptoms

== ENCOUNTER → 2025-03-03 09:19 | Outpatient (BNVA) | payer OTHER, SELFPAY | PROVIDERS: PCP Family Medicine; Visit Provider Family Medicine | DX: E11.65 Type 2 diabetes mellitus with hyperglycemia (principal); I10 Essential (primary) hypertension; I25.10 Atherosclerotic heart disease of native coronary artery without angina pectoris; N40.1 Benign prostatic hyperplasia with lower urinary tract symptoms; N13.8 Other obstructive and reflux uropathy; Z21 Asymptomatic human immunodeficiency virus [HIV] infection status; M65.322 Trigger finger, left index finger | CPT/HCPCS: 83036; 96127 ==

== ENCOUNTER 2025-03-17 07:57 | Outpatient (AMB) | payer OTHER, SELFPAY ==
--- NOTE | 2025-03-17 07:59 | MHC.OFFVIS ---
Vital Signs 03/17/25 08:02 Height 5 ft 6 in Weight 190 lb 4.143 oz BMI 30.7 BP 114/72 Blood Pressure Location Rt brachial Position Sitting Pulse 78 Pulse Source Pulse Oximeter Pulse Oximetry (%) 95 Oxygen Delivery Method Room Air Intake Visit Reasons: Type 2 DM Intake Note: Patient present today for Type 2 Diabetes Mellitus Last Diabetic eye exam: Due, 1 year ago Last Podiatry Visit: Does not see a Dining Room Cashier Random Glucose: 141 mg/dl HgA1C: 6.5% 03/03/2025 Patented Hogshead Assembler Required: No Accompanied by: Self / Same As Patient Allergies lisinopril Adverse Reaction (Intermediate, Verified 03/17/25 08:03) Dry cough tamsulosin Allergy (Unknown, Uncoded 03/17/25 08:03) Unknown Medication List - Last Reconciled 03/17/25 by Lety Forde MD amlodipine 10 mg PO DAILY 90 days ascorbate calcium (vitamin C) 1,000 mg PO DAILY aspirin 81 mg PO DAILY 90 days htewuqdur-hootzfrb-hmgatbr ala 50-200-25 mg (Biktarvy) 1 tab PO DAILY 30 days coenzyme Q10 (Co Q-10) 100 mg PO DAILY ezetimibe 10 mg PO DAILY loratadine 10 mg PO DAILY losartan 50 mg PO DAILY 90 days metformin 500 mg PO BID 90 days metoprolol succinate ER 50 mg PO BEDTIME 90 days omega-3 fatty acids 500 mg PO BID 90 days omeprazole 20 mg PO BID 90 days pentoxifylline ER 400 mg PO BID 90 days rosuvastatin 20 mg PO BEDTIME 90 days semaglutide (Ozempic) 0.5 mg (0.736 mL) subcut QWEEK sennosides (senna) 1.25 mg (0.1453 x 8.6 mg) PO BEDTIME vitamin E (dl, acetate) 450 mg PO DAILY 90 days HPI Comments Details: 64-year-old male coming in today for follow up of type 2 diabetes mellitus. Otherwise medical history significant for CAD, AYUSH on CPAP, hypertension, metabolic dysfunction associated fatty liver disease. On HIV meds. History of diabetes Diagnosed when he was in 50s Prior therapy: Jardiance 10 mg daily (havent taken since July 2024) insurance covergae stopped never been on insulin Current meds Metformin 500 mg BID Ozempic 0.5 mg weekly on Wednesdays (started Ozempic in Nov 2024) has had 8 injections of 0.5 Denies any symptoms of hyperglycemia including polyphagia, polyuria, polydipsia. Denies any hypoglycemic symptoms. Random Glucose: 141mg/dl HgA1C: 7.9% 10/14/24 a1c 6.5% 03/03/25 SMBG's Using girlfriends meter , doesnt have his own fasting 130s 2 hrs post meal 160s Vaccines: Got flu vaccine this season Complications Last Diabetic eye exam: 08/2024 No retinpathy Last Podiatry Visit: Doesn't have one Neuropathy: none Kidney disease: none Macrovascular complications: [place] 2019 , s/p PCI, no stroke Based on labs from October 2024, Fib 4 score 1.70: Further investigation needed, NAFLD score:-0.90: Indeterminate Had liver elastography in 2021 which showed fatty liver disease. Statin: on rosuvastatin 20 mg daily and zetia 10 mg daily, LDL 02/21 at goal 27 mg/dl, low HDL DEN/ARB: on losartan 50 mg , urine microalbumin normal 02/21 Exercise: Not much Diet control: Breakfast and dinner No sodas Sometimes does have desserts and donuts He has never had any hospitalizations for hyperglycemia/hypoglycemia. no alcohol no pancreatitis No gallstones No family history of thyroid cancer Physical exam General: sitting comfortably in no acute distress HEENT: normocephalic/atraumatic, Neck: supple, symmetrical, no thyromegaly Cardiac: normal heart sounds Pulm: normal breath sounds B/L, no added breath sounds Abd: not distended, no tenderness Extremities: no edema, no signs of myxedema Neuro: AAO x3, Speech: normal, no facial droop, moving all 4 extremities Skin: no rash Foot exam: intact sensation to monofilament, intact pulses, intact vibration Laboratory Tests 11/25/22 09/04/23 12/04/23 09:36 14:44 14:52 Plt Count Sodium Potassium Creatinine Estimated GFR Fasting Glucose Hgb A1c (Clinic) 6.6 H 6.7 H AST ALT Triglycerides Cholesterol LDL Cholesterol, Calc HDL Cholesterol Urine Creatinine 104.81 Urine Microalbumin 8.0 Microalb/Creat Ratio 7.6 03/18/24 06/17/24 10/14/24 16:19 10:47 17:05 Plt Count Sodium Potassium Creatinine Estimated GFR Fasting Glucose 118 H Hgb A1c (Clinic) 6.7 H 7.9 H AST ALT Triglycerides 151 H Cholesterol 92 LDL Cholesterol, Calc 34 HDL Cholesterol 28 L Urine Creatinine Urine Microalbumin Microalb/Creat Ratio 11/29/24 11:56 Plt Count 251 Sodium 142 Potassium 4.2 Creatinine 0.81 Estimated GFR > 60 Fasting Glucose Hgb A1c (Clinic) AST 56 H ALT 66 H Triglycerides Cholesterol LDL Cholesterol, Calc HDL Cholesterol Urine Creatinine Urine Microalbumin Microalb/Creat Ratio Laboratory Tests 11/29/24 02/26/25 02/26/25 11:56 11:49 11:50 Hgb 13.8 L Hct 40.4 L Plt Count 251 Creatinine 0.97 Estimated GFR > 60 Hgb A1c (Clinic) AST 36 ALT 43 H Triglycerides 112 Cholesterol 76 LDL Cholesterol, Calc 27 HDL Cholesterol 27 L Vitamin B12 1505 H Urine Creatinine 65.38 Urine Microalbumin < 5.0 03/03/25 09:35 Hgb Hct Plt Count Creatinine Estimated GFR Hgb A1c (Clinic) 6.5 H AST ALT Triglycerides Cholesterol LDL Cholesterol, Calc HDL Cholesterol Vitamin B12 Urine Creatinine Urine Microalbumin US ABDOMEN LIMITED WITH LIVER ELASTOGRAPHY 09/05/22 CLINICAL INFORMATION: Abnormal liver function tests COMPARISON: None. TECHNIQUE: Real-time imaging of the abdominal viscera. Noninvasive ultrasound liver fibrosis assessment is performed using Divya ElastPQ point quantification shear wave elastography (2D-SWE) with a C5-2 MHz transducer. Multiple elastography samples are obtained. FINDINGS: PANCREAS: Not well visualized due to bowel gas LIVER: Enlarged echogenic liver probably representing fatty infiltration. Hypoechoic area adjacent to the gallbladder, characteristic location of focal fatty sparing. No other focal lesion or intrahepatic biliary duct dilatation. The right lobe measures 19 cm in length. The left lobe measures 12 cm in length. Portal flow is normal/hepatopedal Shear wave liver elastography median stiffness is 1.4 m/s (reference: normal median stiffness is 1.3 m/s or less). IQR/median stiffness to assess sampling precision is 0.01 (reference: good quality data set is IQR/median stiffness of 0.15 or less). GALLBLADDER: Normal. The gallbladder is physiologically distended without evidence of stones, sludge, polyps, wall thickening or pericholecystic fluid. COMMON BILE DUCT: Normal in caliber measuring 0.5 cm in diameter. RIGHT KIDNEY: Normal. No hydronephrosis. No renal calculi or focal parenchymal lesions. The kidney measures 13.7 cm in maximum dimension. FREE FLUID: None. US/US abdomen licona w elastography IMPRESSION: 1. Impression: Enlarged echogenic liver suggestive of fatty infiltration. Pancreas not well visualized 2. Liver elastography: Adequate liver sampling. In the absence of other known clinical signs, rules out compensated advanced chronic liver disease. [facility] Medical History Obesity (BMI 30.0-34.9) Metabolic dysfunction-associated fatty liver disease (MAFLD) Diverticulosis Tubular adenoma of colon Sleep apnea HIV (human immunodeficiency virus infection) Fatty liver Coronary artery disease Hyperlipidemia Essential hypertension Diabetes Surgical History Stented coronary artery Hx of shoulder surgery H/O colonoscopy History of biopsy Social History Housing: House Alcohol intake: never Patient Tobacco Use Status: Never used Tobacco e-Cigarette/Vaping Use: Never Used Second Hand Smoke Exposure: No service: Yes Current occupational status: employed 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 Current occupational exposures/hazards: No Cognitive needs: No Hearing needs: No Vision needs: Yes (reading glasses) Physical Exam Vital Signs: BMI result Body Mass Index 30.7 Assessment & Plan Assessment & Plan (1) Diabetes: Code(s): E11.9 - Type 2 diabetes mellitus without complications Category: Medical Qualifiers: Diabetes mellitus type: type 2 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 A1c February 2025 down to 6.5% from September 2024 elevated at 7.9%. This change has been seen since he was started on the Ozempic. Given history of CAD, metabolic dysfunction associated liver disease, obesity we will uncontrolled hyperglycemia he would be an excellent candidate of for GLP 1 agonist. He continues to have high blood sugar numbers in the morning in the 130s to 140s, plus he has not lost much weight since starting the Ozempic. I will go up on the Ozempic. Plan: -continue metformin to 500 mg twice daily -increase Ozempic to 1 mg weekly, -advised 150 minutes of exercise in a week, 30 minutes 5 days a week -up to date with eye visit, no history of retinopathy -foot exam done today, unremarkable -discussed importance of monitoring blood sugars with target blood sugar readings -discussed risks of hyperglycemia with both microvascular and macrovascular complications. -follow up in 4 months (2) Essential hypertension: Code(s): I10 - Essential (primary) hypertension Category: Medical Plan: Blood pressure within goal range. Continue current regimen of amlodipine, losartan and metoprolol. (3) Metabolic dysfunction-associated fatty liver disease (MAFLD): Code(s): K76.0 - Fatty (change of) liver, not elsewhere classified Category: Medical Plan: Fib 4 score 1.70 which is indeterminate, further investigation needed. NAFLD score is-0.90 which is also indeterminate. He already follows with GI, I told him that at this time we already have him on Ozempic but since he has not lost weight, we will go up on the dose, and also mentioned importance of lifestyle modification with a voiding trans and saturated fats as well as aiming for 7% weight loss. However I also told him that his last liver elastography was in 2021, and he would be further evaluation for investigation for liver fibrosis. Told him last visit to discuss further with GI as he is already seeing them. Patient verbalized understanding. Plan: -follow up with GI -increase Ozempic to 1 mg weekly -lifestyle modification advised with 30 minutes of exercise daily and avoiding transient saturated fats (4) Obesity (BMI 30.0-34.9): Code(s): E66.811 - Obesity, class 1 Category: Medical Plan: Current BMI 30.7 kg per m2, current weight 190 lb. He has not had any weight loss since starting the Ozempic 3 months ago. We will go up on the dose Plan: -advised 30 minutes of exercise daily -discussed importance of portion control, calorie deficit -increase Ozempic to 1 mg weekly (5) Hyperlipidemia: Code(s): E78.5 - Hyperlipidemia, unspecified Category: Medical Qualifiers: Hyperlipidemia type: mixed hyperlipidemia Qualified Code(s): E78.2 - Mixed hyperlipidemia Plan: LDL from January 2025 within goal of less than 50 mg/dL given history of CAD. Plan: -continue Zetia 10 mg daily and rosuvastatin 20 mg daily Plan I spent 30 minutes in reviewing the record, seeing the patient and documenting in the medical record. Medications: New blood sugar diagnostic (FreeStyle Lite Strips) As directed to check blood sugars once a day 50 ea 6RF lancets (FreeStyle Lancets) As directed to check blood sugars once a day 100 ea 5RF semaglutide (Ozempic) 1 mg (0.75 mL) subcut QWEEK 3 mL 7RF blood-glucose meter (FreeStyle Lite Meter kit) As directed to check blood sugars once a day 1 ea 0RF Discontinued semaglutide (Ozempic) Discontinued Reason: Doctor's Order 0.5 mg (0.736 mL) subcut QWEEK 3 mL 6RF Patient Instructions: continue metformin 500 mg twice daily increase Ozempic to 1 mg weekly, advised 150 minutes of exercise in a week/ 30 minutes 5 days a week Check blood sugars once daily , some days fasting with goal target of 80 to 110 mg/dl and some times 2 hours post meal with goal target of <140 mg/dl Coding Level of Care Code Est Pt Level 4 (49364) Complex EM visit Add On G2211 Diagnoses Type 2 diabetes mellitus with hyperglycemia, without long-term current use of insulin E11.65 Diabetes mellitus type: type 2 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
--- OUTSIDE RECORDS SUMMARY | 2025-03-17 07:59 | XMS_ITS | Encounter Summary ---
Author Organization [employer] [facility] Address [address] [facility] [address]t [place] [address] Care Team Providers Care Process Lead Name Role Phone Unavailable Primary Care Provider Unavailabl e Encounter Details Date Type Department Care Team (Latest Contact Info) Description 03/24/2022 Abstract [facility]HC CONVERSIONS Dental, Provider, DDS Social History Tobacco [...]
--- OUTSIDE RECORDS SUMMARY | 2025-03-17 07:59 | XMS_ITS | Clinical Summary ---
Author Organization [employer] Address [address] [facility] [address] [place] [address] Care Team Providers Care Flight Nurse Name Role Phone Unavailable Primary Care Provider [...]
--- OUTSIDE RECORDS SUMMARY | 2025-03-17 07:59 | XMS_ITS | Clinical Summary ---
Author Organization [facility] [employer] [facility] ity Address [address] [place] [address] Care Team Providers Care Otr Owner Operator Name Role Phone Unavailable Primary Care [...]
[2025-03-17 08:02] VITALS: BP 114/72; PULSE 78; O2SAT 95; BMI 30.7
[2025-03-17 08:12] LABS: Glucose, Whole Blood 141 mg/dL (60-115)
== END 2025-03-17 08:26 | disposition home or self-care (01) ==
LOC: HO.ENCR 07:58
PROVIDERS: PCP Family Medicine; Visit Provider Student in an Organized Health Care Education/Training Program
DX: E11.65 Type 2 diabetes mellitus with hyperglycemia (principal); I10 Essential (primary) hypertension; K76.0 Fatty (change of) liver, not elsewhere classified; E66.811 Obesity, class 1; E78.2 Mixed hyperlipidemia
CPT/HCPCS: 99214

== ENCOUNTER → 2025-03-17 07:57 | Outpatient (BNVA) | payer OTHER, SELFPAY | PROVIDERS: PCP Family Medicine; Visit Provider Student in an Organized Health Care Education/Training Program | DX: E11.9 Type 2 diabetes mellitus without complications (principal) | CPT/HCPCS: 82947 ==

== ENCOUNTER 2025-06-13 11:33 | Outpatient (REF) | payer OTHER, SELFPAY ==
--- OUTSIDE RECORDS SUMMARY | 2025-06-13 11:35 | XMS_ITS | Encounter Summary ---
Author Organization [employer] [facility] Address [address] [place] [address] Care Team Providers Care Bench Scientist Name Role Phone Unavailable Primary Care Provider [...]
--- OUTSIDE RECORDS SUMMARY | 2025-06-13 11:35 | XMS_ITS | Clinical Summary ---
Author Organization [employer] [facility] ity Address [address] [place] [address] Care Team Providers Care Aerodynamics Engineer Name Role Phone Unavailable Primary Care [...] Panel) 11/28/2023 Colorectal Cancer Screening: Colonoscopy 11/28/2023 HIV Screening 11/28/2023 Hepatitis C Screening 11/28/2023 Social Influencers of Health Screening 11/28/2023 COVID-19 Vaccine (1 - 2023-2 5 season) 2024 Depression Screening 10/30/2024 Influenza Vaccine (#1) 2025 RSV Immunization Adult Patie nts (1 [...]
[2025-06-17 19:38] LABS: HIV RNA PCR Qn Copies NOT DETECTED copies/mL (NOT DETECTED); HIV RNA PCR Qn Log Copies NOT DETECTED (NOT DETECTED)
[2025-06-18 16:02] LABS: Absolute CD3 Count 2003 cells/uL (840-3060); Absolute CD8 Count 741 cells/uL (180-1170); Percent CD3 Cells 82 % (57-85); Percent CD8 Cells 30 % (12-42)
== END 2025-06-13 11:34 | disposition home or self-care (01) ==
LOC: HO.LAB 11:33
PROVIDERS: PCP Family Medicine; Visit Provider Internal Medicine
DX: Z21 Asymptomatic human immunodeficiency virus [HIV] infection status (principal)
CPT/HCPCS: 36415; 86359; 86360; 87536

== ENCOUNTER 2025-06-23 11:22 | Outpatient (AMB) | payer OTHER, SELFPAY ==
--- NOTE | 2025-06-23 11:23 | MHC.OFFVIS ---
Vital Signs 06/23/25 11:24 Height 5 ft 6 in Weight 180 lb 8 oz BMI 29.1 BP 112/74 Blood Pressure Location Rt brachial Position Sitting Pulse 66 Pulse Source Pulse Oximeter Pulse Oximetry (%) 97 Oxygen Delivery Method Room Air Intake Visit Reasons: 1 yr F/U Intake Note: Patient presents 1 year follow up for Sleep apnea- Compliance in chart Model Builder Display Required: No Accompanied by: Self / Same As Patient Allergies lisinopril Adverse Reaction (Intermediate, Verified 06/23/25 11:24) Dry cough tamsulosin Allergy (Unknown, Uncoded 03/17/25 08:03) Unknown Medication List - Last Reconciled 06/23/25 by SHELTON Kiran amlodipine 10 mg PO DAILY 90 days ascorbate calcium (vitamin C) 1,000 mg PO DAILY aspirin 81 mg PO DAILY 90 days puwytvqpe-zcxybvvt-ngbuoym ala 50-200-25 mg (Biktarvy) 1 tab PO DAILY 30 days blood sugar diagnostic (FreeStyle Lite Strips) As directed to check blood sugars once a day blood-glucose meter (FreeStyle Lite Meter kit) As directed to check blood sugars once a day coenzyme Q10 (Co Q-10) 100 mg PO DAILY ezetimibe 10 mg PO DAILY lancets (FreeStyle Lancets) As directed to check blood sugars once a day loratadine 10 mg PO DAILY losartan 50 mg PO DAILY 90 days metformin 500 mg PO BID 90 days metoprolol succinate ER 50 mg PO BEDTIME 90 days omega-3 fatty acids 500 mg PO BID 90 days omeprazole 20 mg PO BID 90 days pentoxifylline ER 400 mg PO BID 90 days rosuvastatin 20 mg PO BEDTIME 90 days semaglutide (Ozempic) 1 mg (0.75 mL) subcut QWEEK sennosides (senna) 1.25 mg (0.1453 x 8.6 mg) PO BEDTIME vitamin E (dl, acetate) 450 mg PO DAILY 90 days HPI Comments Details: 64-yr-old male presents for follow-up visit of sleep apnea. Pt denies any significant interval medical history changes. Pt states he has been sleeping well with his CPAP machine. He is using his CPAP most nights, may miss a night if he has nasal congestion. States nasal congestion is usually triggered by yard work. Uses an OTC nasal spray prn- sometimes helps, sometimes not. He is not having any oral dryness, daytime tiredness or snoring anymore. He is using a full face mask, which he is STILL tolerating better. 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 He reports that he accidentally knocked his CPAP machine to the floor, which broke the filter covering, however he has figured out a way to keep a close. He states he is cleaning his CPAP supplies regularly has enough CPAP supplies, and. Updated CPAP compliance data reviewed Formerly [facility] AirSense 10 AutoSet Serial number [id number] Compliance Report Usage 03/18/2025 - 06/15/2025 Overall usage 98% Usage greater than 4 hours 91% Average usage (days used) 5 hours and 20 minutes AutoSet Min Pressure 5-15 cmH2O EPR Fulltime EPR level 2 Response Standard Maximum pressure: 13.1 cmH2O Median leaks 4.1 L/min Residual AHI 0.5 per hour PFSH Medical History Obesity (BMI 30.0-34.9) Metabolic dysfunction-associated fatty liver disease (MAFLD) Diverticulosis Tubular adenoma of colon Sleep apnea HIV (human immunodeficiency virus infection) Fatty liver Coronary artery disease Hyperlipidemia Essential hypertension Diabetes Surgical History Stented coronary artery Hx of shoulder surgery H/O colonoscopy History of biopsy Social History Housing: House Alcohol intake: never Patient Tobacco Use Status: Never used Tobacco e-Cigarette/Vaping Use: Never Used Second Hand Smoke Exposure: No service: Yes Current occupational status: employed 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 Current occupational exposures/hazards: No Cognitive needs: No Hearing needs: No Vision needs: Yes (reading glasses) Review of Systems Const All systems reviewed & are unremarkable except as noted in HPI and below Physical Exam Vital Signs: Last Vital Signs Pulse 66 06/23/25 11:24 BP 112/74 06/23/25 11:24 Pulse Ox 97 06/23/25 11:24 Oxygen Delivery Method Room Air 06/23/25 11:24 BMI result Body Mass Index 29.1 Const General: no acute distress Orientation/consciousness: patient oriented x3 HEENT Other: Mallampati stage Resp Effort & Inspection: normal respiratory effort and able to speak in complete sentences Auscultation: clear to auscultation bilaterally Neuro General: patient oriented x3 Psych Mental Status: mental status grossly normal Speech and movement: Clear speech present Attitude: cooperative Results Reviewed Results Reviewed: PAP compliance report- see HPI Assessment & Plan Assessment & Plan (1) Sleep apnea: Comment: Mild degree of sleep apnea. The AHI was 6/hr and oxygen herber was 84%. Code(s): G47.30 - Sleep apnea, unspecified Category: Medical Qualifiers: Sleep apnea type: obstructive Qualified Code(s): G47.33 - Obstructive sleep apnea (adult) (pediatric) (2) Nasal congestion: Code(s): R09.81 - Nasal congestion Category: Medical Plan Continue APAP 5-15 cmH2O w/ EPR 2 nightly > 4 hours, as pt continues to have good clinical effect from use. Trial azelastine nasal spray, 1-2 sprays into each nostril 1-2 times per day as needed for nasal congestion Reviewed optimal azelastine nasal spray administration technique Reviewed benefits and possible side effects, such as sleepiness if medication is swallowed Clean CPAP machine and supplies routinely. Change CPAP supplies routinely. Use distilled water in CPAP water tank reservoir Patient to request an updated PAP compliance report prior to his DoT exam in Aug. Pt to contact us or respiratory company with any questions or concerns. f/u in 1 yr or sooner prn. Medications: New azelastine administer into each nostril 2 sprays intranasal Q12H 30 mL 6RF 30 days Coding Level of Care Code Est Pt Level 4 (50541) Diagnoses Obstructive sleep apnea syndrome G47.33 Sleep apnea type: obstructive Nasal congestion R09.81
[2025-06-23 11:24] VITALS: BP 112/74; PULSE 66; O2SAT 97; BMI 29.1
--- OUTSIDE RECORDS SUMMARY | 2025-06-23 12:51 | XMS_ITS | Encounter Summary ---
Author Organization [employer] [facility] Address [address] [place] [address] Care Team Providers Care Occupational Therapy Technician Name Role Phone Unavailable Primary Care [...]
--- OUTSIDE RECORDS SUMMARY | 2025-06-23 12:51 | XMS_ITS | Clinical Summary ---
Author Organization [employer] [facility] ity Address [address] [place] [address] Care Team Providers Care Mail Clerk Bills Name Role Phone Unavailable Primary Care Provider [...]
== END 2025-06-23 12:01 | disposition home or self-care (01) ==
LOC: HO.HSMS 11:23
PROVIDERS: PCP Family Medicine; Visit Provider Nurse Practitioner Family
DX: G47.33 Obstructive sleep apnea (adult) (pediatric) (principal); R09.81 Nasal congestion
CPT/HCPCS: 99214

== ENCOUNTER 2025-06-23 12:50 | Outpatient (AMB) | payer OTHER, SELFPAY ==
[2025-06-23 12:59] VITALS: BP 122/78; PULSE 86; O2SAT 97; BMI 29.7
--- NOTE | 2025-06-23 12:59 | A.OFFVIS_ITS ---
Vital Signs 06/23/25 12:59 Height 5 ft 6 in Weight 184 lb BMI 29.7 BP 122/78 Pulse 86 Pulse Oximetry (%) 97 Intake Visit Reasons: 6 Month Allergies lisinopril Adverse Reaction (Intermediate, Verified 06/23/25 13:00) Dry cough tamsulosin Allergy (Unknown, Uncoded 06/23/25 13:00) Unknown HPI HPI 6 Month: Details: He is doing well. His CD4 count is 1265 and viral load undetectable on 06/13. He has no complaints [facility] Medical History Obesity (BMI 30.0-34.9) Metabolic dysfunction-associated fatty liver disease (MAFLD) Diverticulosis Tubular adenoma of colon Sleep apnea HIV (human immunodeficiency virus infection) Fatty liver Coronary artery disease Hyperlipidemia Essential hypertension Diabetes Surgical History Stented coronary artery Hx of shoulder surgery H/O colonoscopy History of biopsy Social History Housing: House Alcohol intake: never Patient Tobacco Use Status: Never used Tobacco e-Cigarette/Vaping Use: Never Used Second Hand Smoke Exposure: No service: Yes Current occupational status: employed 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 He takes Biktarvy daily. His viral load undetectable and CD4 count appropriate. Code(s): Z21 - Asymptomatic human immunodeficiency virus [HIV] infection status Category: Medical Plan: Continue current medication,Biktarvy. Keep up to date on health care maintenance. See in six months. Orders: Orders Lymphocyte Subset Panel 3 6 Months Z21 - Asymptomatic human immunodeficiency virus [HIV] infection status Basic Metabolic Panel 6 Months Z21 - Asymptomatic human immunodeficiency virus [HIV] infection status Liver Panel 6 Months Z21 - Asymptomatic human immunodeficiency virus [HIV] infection status Syphilis Screen 6 Months Z21 - Asymptomatic human immunodeficiency virus [HIV] infection status HIV-1 RNA QN PCR Expanded 6 Months Z21 - Asymptomatic human immunodeficiency virus [HIV] infection status Complete Blood Count Auto Diff 6 Months Z21 - Asymptomatic human immuno deficiency virus [HIV] infection status Medications: Refilled drtifvjxe-kkovseep-kksdelv ala 50-200-25 mg (Biktarvy) 1 tab PO DAILY 30 tabs 5RF 30 days Coding Level of Care Code Est Pt Level 4 (09579) Diagnoses HIV positive Z21
== END 2025-06-23 13:31 | disposition home or self-care (01) ==
LOC: HO.HID 12:50
PROVIDERS: PCP Family Medicine; Visit Provider Internal Medicine
DX: Z21 Asymptomatic human immunodeficiency virus [HIV] infection status (principal)
CPT/HCPCS: 99214

== ENCOUNTER 2025-07-07 10:36 | Outpatient (AMB) | payer OTHER, SELFPAY ==
--- NOTE | 2025-07-07 10:38 | MHC.PC.OV ---
Vital Signs 07/07/25 10:40 Height 5 ft 6 in Weight 181 lb 4 oz BMI 29.3 BP 116/78 Blood Pressure Location Rt brachial Position Sitting Pulse 66 Pulse Source Pulse Oximeter Pulse Oximetry (%) 96 Oxygen Delivery Method Room Air Intake Visit Reasons: f/u diabetes, HTN - see comments Allergies lisinopril Adverse Reaction (Intermediate, Verified 07/07/25 10:42) Dry cough tamsulosin Allergy (Unknown, Uncoded 07/07/25 10:42) Unknown Medication List - Last Reconciled 07/07/25 by Akash Diaz MD amlodipine 10 mg PO DAILY 90 days ascorbate calcium (vitamin C) 1,000 mg PO DAILY aspirin 81 mg PO DAILY 90 days azelastine 2 sprays intranasal Q12H 30 days ybvqulwru-muosqfna-rgwcgtg ala 50-200-25 mg (Biktarvy) 1 tab PO DAILY 30 days blood sugar diagnostic (FreeStyle Lite Strips) As directed to check blood sugars once a day blood-glucose meter (FreeStyle Lite Meter kit) As directed to check blood sugars once a day coenzyme Q10 (Co Q-10) 100 mg PO DAILY ezetimibe 10 mg PO DAILY lancets (FreeStyle Lancets) As directed to check blood sugars once a day loratadine 10 mg PO DAILY losartan 50 mg PO DAILY 90 days metformin 500 mg PO BID 90 days metoprolol succinate ER 50 mg PO BEDTIME 90 days omega-3 fatty acids 500 mg PO BID 90 days omeprazole 20 mg PO BID 90 days pentoxifylline ER 400 mg PO BID 90 days rosuvastatin 20 mg PO BEDTIME 90 days semaglutide (Ozempic) 1 mg (0.75 mL) subcut QWEEK sennosides (senna) 1.25 mg (0.1453 x 8.6 mg) PO BEDTIME vitamin E (dl, acetate) 450 mg PO DAILY 90 days Tobacco use date assessed: 07/07/25 Dental Screening Dental Screen Date: 07/07/25 Did you have a dental visit in the last 12 months?: No Did you have a dental problem in the last 6 months where you did not have access to dental care?: No Was dental information given to patient?: Patient has dentist HPI f/u diabetes, HTN - see comments HPI Details 64 y/o male presents to f/u diabetes, HTN. BP today 116/78. He is on losartan, metoprolol, amlodipine. Had been following up with endocrinology. A1c improved from 6.5% to 6.2%. Had not been seeing his eye doctor recently. Reports L shoulder pain, L hand pain. [facility] Medical History Obesity (BMI 30.0-34.9) Metabolic dysfunction-associated fatty liver disease (MAFLD) Diverticulosis Tubular adenoma of colon Sleep apnea HIV (human immunodeficiency virus infection) Fatty liver Coronary artery disease Hyperlipidemia Essential hypertension Diabetes Surgical History Stented coronary artery Hx of shoulder surgery H/O colonoscopy History of biopsy Social History Housing: House Alcohol intake: never Patient Tobacco Use Status: Never used Tobacco e-Cigarette/Vaping Use: Never Used Second Hand Smoke Exposure: No service: Yes Current occupational status: employed 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 1. Little interest or pleasure in doing things: not at all 2. Feeling down, depressed, or hopeless: not at all 3. Trouble falling or staying asleep, or sleeping too much: not at all 4. Feeling tired or having little energy: not at all 5. Poor appetite or overeating: not at all 6. Feeling bad about yourself - or that you are a failure or have let yourself or your family down: not at all 7. Trouble concentrating on things, such as reading the newspaper or watching television: not at all 8. Moving or speaking so slowly that other people could have noticed. Or the opposite - being so fidgety or restless that you have been moving around a lot more than usual: not at all 9. Thoughts that you would be better off or of hurting yourself in some way: not at all Total score: 0 Depression Screening Interpretation: Negative Depression Screening Done: Yes 21471 - PHQ-9 Billing: Yes Source: Developed by Drs. Brett L. Jyothi Donnelly Kurt Kroenke and colleagues, with an educational ara from [employer]. Thrive Questionnaire Date Thrive assessed: 02/24/25 I am a: Patient What is your living situation today?: I have a steady place to live Within the past 12 months, did the food you bought not last and you didn't have the money to get more?: Never true Within the past 12 months, did you worry whether your food would run out before you got money to buy more?: Never true Do you have trouble paying for medicines?: No Do you have trouble getting transportation to medical appointments?: No Do you have trouble paying your heating and electricity bill?: No Do you have trouble taking care of your child, family member or friend?: No Do you have trouble with day-to-day activities such as bathing, preparing meals, shopping, managing finances, etc.?: No Are you currently unemployed and looking for a job?: No Are you interested in more education?: No Please select the resources that you would like help with: None Currently or been in a relationship where the following occur: I choose not to answer THRIVE Score: 0 AUDIT C Alcohol Use Questionnaire (AUDIT-C) 1. How often do you have a drink containing alcohol?: Monthly or less 2. How many drinks containing alcohol do you have on a typical day when you are drinking?: 1 or 2 3. How often do you have six or more drinks on one occasion?: Never Total Score: 1 MONTSERRAT-7 AMB Questionnaire MONTSERRAT-7 Date MONTSERRAT - 7 assessed: 07/07/25 Feeling nervous, anxious, or on edge: 0 = Not at all Not being able to stop or control worryin = Not at all Worrying too much about different things: 0 = Not at all Trouble relaxin = Not at all Being so restless that it is hard to sit still: 0 = Not at all Becoming easily annoyed or irritable: 0 = Not at all Feeling afraid as if something awful might happen: 0 = Not at all Total MONTSERRAT-7 score (0-4 normal; 5-9 mild; 10-14 moderate; 15-21 severe): 0 Source: Developed by Jyothi Worley Kurt Kroenke and colleagues, with an educational ara from [employer]. MONTSERRAT-7 Assessment Billing MONTSERRAT-7 Assessment Tool: MONTSERRAT-7 Assessment 16698 Review of Systems Const Denies chills, Denies fatigue, Denies fever(s), Denies headache(s) and Denies weakness ENT Denies dizziness and Denies headache(s) Card Denies dyspnea Resp Denies cough, Denies dyspnea, Denies wheezing and Denies other (shortness of breath) Musc Denies numbness and Denies tingling Neuro Denies dizziness, Denies headache(s), Denies numbness, Denies tingling and Denies weakness Psych Denies anxiety and Denies depression Endo Denies fatigue Aller/Immun Denies wheezing Physical exam (Primary Care) Vital Signs: Last Vital Signs Pulse 66 07/07/25 10:40 BP 116/78 07/07/25 10:40 Pulse Ox 96 07/07/25 10:40 Oxygen Delivery Method Room Air 07/07/25 10:40 BMI result Body Mass Index 29.3 Tobacco/Smoking Status: Tobacco use Status Tobacco use date assessed 07/07/25 07/07/25 10:45 Patient Tobacco Use Status Never used Tobacco 07/07/25 10:40 e-Cigarette/Vaping Use Never Used 07/07/25 10:40 PHQ-9: PHQ-9 Score PHQ-9: Total score 0 07/07/25 11:12 Depression Screening Interpretation: Negative Thrive Assessment: Date of Thrive Assessment Date Thrive assessed 02/24/25 07/07/25 10:40 Currently or been in a relationship where the following occur: I choose not to answer Const General: well developed; No acute distress Nutritional Appearance: well nourished Orientation/consciousness: patient oriented x3 HENMT Head: Yes normocephalic and Yes atraumatic Eyes General: appearance normal, both eyes and all related structures Pupils: Equal, round and reactive pupils present EOM: EOMs intact bilaterally Resp Effort & Inspection: normal respiratory effort Neuro General: patient oriented x3 and gait normal Cranial nerves: Yes Equal, round and reactive pupils present Psych Affect: normal affect Results AMB Hemoglobin A1c AMB Hemoglobin A1c 6.2 % Last Edit by Ruba Carpenter CMA on 07/07/25 11:00 Results Reviewed Results Reviewed: Laboratory Last Values Hgb A1c (Clinic) 6.2 % (4.0-6.0) H 07/07/25 10:46 Coding Level of Care Code Est Pt Level 4 (65006) Diagnoses Essential hypertension I10 Coronary artery disease I25.10 Type 2 diabetes mellitus with hyperglycemia, without long-term current use of insulin E11.65 Diabetes mellitus complication status: with hyperglycemia Diabetes mellitus intermodal dispatcher insulin use: without intermodal dispatcher use Diabetes mellitus type: type 2 Left shoulder pain M25.512 Left hand pain M79.642 Additional Codes MONTSERRAT-7 Assessment Billing - MONTSERRAT-7 Assessment Tool: MONTSERRAT-7 Assessment 92967 ([id number]) PHQ-9 - 58959 - PHQ-9 Billing: Yes ([id number]) Assessment & Plan Assessment & Plan (1) Essential hypertension: Code(s): I10 - Essential (primary) hypertension Category: Medical Plan: Blood pressure is well controlled. Goal is less than 130/80 Continue current medications (2) Coronary artery disease: Code(s): I25.10 - Atherosclerotic heart disease of false pass coronary artery without angina pectoris Category: Medical Plan: Stable (3) Diabetes: Code(s): E11.9 - Type 2 diabetes mellitus without complications Category: Medical Qualifiers: Diabetes mellitus complication status: with hyperglycemia Diabetes mellitus assisted insulin use: without assisted use Diabetes mellitus type: type 2 Qualified Code(s): E11.65 - Type 2 diabetes mellitus with hyperglycemia Plan: A1c 6.2%. Good control. Goal is less than 7.0% Continue current medications Follow-up with Endocrine as recommended (4) Left shoulder pain: Code(s): M25.512 - Pain in left shoulder Category: Medical Plan: Left shoulder muscle pain with discomfort on internal rotation No truama Referred for physical therapy (5) Left hand pain: Code(s): M79.642 - Pain in left hand Category: Medical Plan: Left hand pain and stiffness at left 2nd finger Advised ice and heat and diclofenac gel If not improving will refer to hand specialist Orders: Orders AMB Hemoglobin A1c Today Z13.9 - Encounter for screening, unspecified PT Evaluation and Treatment Today M25.512 - Pain in left shoulder Medications: New diclofenac sodium 1% apply to single elbow, wrist or hand; for hand includes palm/fingers/back of hand 2 grams topical QID PRN 50 grams 3RF pain 28 days M79.642 - Pain in left hand
[2025-07-07 10:40] VITALS: BP 116/78; PULSE 66; O2SAT 96; BMI 29.3
--- OUTSIDE RECORDS SUMMARY | 2025-07-07 12:49 | XMS_ITS | Clinical Summary ---
Author Organization [facility] ity Address [address] [place] [address] Care Team Providers Care Finisher Special Stocks Name Role Phone Unavailable Primary Care Provider [...]
--- OUTSIDE RECORDS SUMMARY | 2025-07-07 12:49 | XMS_ITS | Clinical Summary ---
Author Organization [employer] Address [address] [place] [address] Care Team Providers Care Digital Marketing Intern Name Role Phone Unavailable Primary Care Provider [...] FOBT 1962 Lipid Panel 1962 Sigmoidoscopy 1962 Disability Screening 1962 Alcohol/Substance Use Screening 1974 Tobacco Screening 1974 DTaP/Tdap/Td Vaccines (2 - Td or Tdap) 10/16/2023 10/16/2013, 12/21/2006 COVID-19 Vaccine ( season) 2025 10/14/2021, 03/25/2021, 03/04/2021 Influenza Vaccine (#1) 2025 , 09/03/2020, 08/12/2019, Additional history exists RSV Patients and Patients Aged 60 years or older (1 - 1-dose 75+ series) 2037 Hepatitis A Vaccines Aged Out 01/08/2003, 08/02/20 02 No longer eligible based on patient's age to complete this topic Hepatitis B Vaccines Completed 01/08/2003, 08/02/2002, 07/03/2002 Pneumococcal Vaccine: 50+ Years Completed 08/15/2016, 02/25/2011, 08/18/2010, Additional history exists Meningococcal Vaccine Aged Out 09/10/2018, 018 No longer eligible based on patient's age to complete this topic Zoster Vaccines Completed 10/14/2019, 07/22/2019 HIB Vaccines Aged Out No longer eligi [...]
--- OUTSIDE RECORDS SUMMARY | 2025-07-07 12:49 | XMS_ITS | Encounter Summary ---
Author Organization [employer] [facility] Address [address] [place] [address] Care Team Providers Care Apprentice Technician Name Role Phone Unavailable Primary Care [...]
== END 2025-07-07 11:19 | disposition home or self-care (01) ==
LOC: HO.HMCFM 10:37
PROVIDERS: PCP Family Medicine; Visit Provider Family Medicine
DX: I10 Essential (primary) hypertension (principal); I25.10 Atherosclerotic heart disease of native coronary artery without angina pectoris; E11.65 Type 2 diabetes mellitus with hyperglycemia; M25.512 Pain in left shoulder; M79.642 Pain in left hand; Z13.9 Encounter for screening, unspecified

== ENCOUNTER → 2025-07-07 10:36 | Outpatient (BNVA) | payer OTHER, SELFPAY | PROVIDERS: PCP Family Medicine; Visit Provider Family Medicine | DX: I10 Essential (primary) hypertension (principal); I25.10 Atherosclerotic heart disease of native coronary artery without angina pectoris; E11.65 Type 2 diabetes mellitus with hyperglycemia; M25.512 Pain in left shoulder; M79.642 Pain in left hand | CPT/HCPCS: 83036; 96127 ==

== ENCOUNTER 2025-07-21 08:05 | Outpatient (AMB) | payer OTHER, SELFPAY ==
[2025-07-21 08:07] VITALS: BP 122/70; PULSE 61; O2SAT 97; BMI 29.4
--- NOTE | 2025-07-21 08:07 | MHC.OFFVIS ---
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 Required: No Accompanied by: Self / Same As Patient Allergies lisinopril Adverse Reaction (Intermediate, Verified 07/21/25 08:13) Dry cough tamsulosin Allergy (Unknown, Uncoded 07/21/25 08:13) Unknown Medication List - Last Reconciled 07/21/25 by Lety Forde MD amlodipine 10 mg PO DAILY 90 days ascorbate calcium (vitamin C) 1,000 mg PO DAILY aspirin 81 mg PO DAILY 90 days azelastine 2 sprays intranasal Q12H 30 days xytlqlgji-trybxtdp-zazjobk ala 50-200-25 mg (Biktarvy) 1 tab PO DAILY 30 days blood sugar diagnostic (FreeStyle Lite Strips) As directed to check blood sugars once a day blood-glucose meter (FreeStyle Lite Meter kit) As directed to check blood sugars once a day coenzyme Q10 (Co Q-10) 100 mg PO DAILY diclofenac sodium 1% 2 grams topical QID PRN 28 days ezetimibe 10 mg PO DAILY lancets (FreeStyle Lancets) As directed to check blood sugars once a day loratadine 10 mg PO DAILY losartan 50 mg PO DAILY 90 days metformin 500 mg PO BID 90 days metoprolol succinate ER 50 mg PO BEDTIME 90 days omega-3 fatty acids 500 mg PO BID 90 days omeprazole 20 mg PO BID 90 days pentoxifylline ER 400 mg PO BID 90 days rosuvastatin 20 mg PO BEDTIME 90 days semaglutide (Ozempic) 1 mg (0.75 mL) subcut QWEEK sennosides (senna) 1.25 mg (0.1453 x 8.6 mg) PO BEDTIME vitamin E (dl, acetate) 450 mg PO DAILY 90 days HPI Comments Details: 64-year-old male coming in today for follow up of type 2 diabetes mellitus. Otherwise medical history significant for CAD, AYUSH on CPAP, hypertension, metabolic dysfunction associated fatty liver disease. On HIV meds. Last seen February 2025. History of diabetes Diagnosed when he was in 50s Prior therapy: Jardiance 10 mg daily (havent taken since July 2024) insurance covergae stopped never been on insulin Current meds Metformin 500 mg BID Ozempic 1 mg weekly on Wednesdays (started Ozempic in Nov 2024, titrated up to 1 mg weekly injection February 2025) Denies any symptoms of hyperglycemia including polyphagia, polyuria, polydipsia. Denies any hypoglycemic symptoms. Random Glucose: 119 mg/dl HgA1C: 7.9% 10/14/24 6.5% 03/03/25 6.2% 07/07/2025 SMBG's Vaccines: Got flu vaccine 2024 Weight: 182 lb 07/21/2025 down from 185 lb February 2025, down from 190 lb November 2024 Complications Last Diabetic eye exam: 08/2024 has upcoming appt 09/22/25 No retinpathy Last Podiatry Visit: Doesn't have one Neuropathy: none Kidney disease: none Macrovascular complications: NC 2019 , s/p PCI, no stroke Based on labs from October 2024, Fib 4 score 1.70: Further investigation needed, NAFLD score:-0.90: Indeterminate Had liver elastography in 2021 which showed fatty liver disease. Statin: on rosuvastatin 20 mg daily and zetia 10 mg daily, LDL 02/21 at goal 27 mg/dl, low HDL DEN/ARB: on losartan 50 mg , urine microalbumin normal 02/21 Exercise: Not much Diet control: Breakfast and dinner No sodas Sometimes does have desserts and donuts He has never had any hospitalizations for hyperglycemia/hypoglycemia. no alcohol no pancreatitis No gallstones No family history of thyroid cancer Physical exam General: sitting comfortably in no acute distress HEENT: normocephalic/atraumatic, Neck: supple, symmetrical, no thyromegaly Cardiac: normal heart sounds Pulm: normal breath sounds B/L, no added breath sounds Abd: not distended, no tenderness Extremities: no edema, no signs of myxedema Foot exam: Check February 2025 intact sensation to monofilament, intact pulses, intact vibration Laboratory Tests 0109/04/23 12/04/23 09:36 14:44 14:52 Plt Count Sodium Potassium Creatinine Estimated GFR Fasting Glucose Hgb A1c (Clinic) 6.6 H 6.7 H AST ALT Triglycerides Cholesterol LDL Cholesterol, Calc HDL Cholesterol Urine Creatinine 104.81 Urine Microalbumin 8.0 Microalb/Creat Ratio 7.6 03/18/24 06/17/24 10/14/24 16:19 10:47 17:05 Plt Count Sodium Potassium Creatinine Estimated GFR Fasting Glucose 118 H Hgb A1c (Clinic) 6.7 H 7.9 H AST ALT Triglycerides 151 H Cholesterol 92 LDL Cholesterol, Calc 34 HDL Cholesterol 28 L Urine Creatinine Urine Microalbumin Microalb/Creat Ratio 11/29/24 11:56 Plt Count 251 Sodium 142 Potassium 4.2 Creatinine 0.81 Estimated GFR > 60 Fasting Glucose Hgb A1c (Clinic) AST 56 H ALT 66 H Triglycerides Cholesterol LDL Cholesterol, Calc HDL Cholesterol Urine Creatinine Urine Microalbumin Microalb/Creat Ratio Laboratory Tests 11/29/24 02/26/25 02/26/25 11:56 11:49 11:50 Hgb 13.8 L Hct 40.4 L Plt Count 251 Creatinine 0.97 Estimated GFR > 60 Hgb A1c (Clinic) AST 36 ALT 43 H Triglycerides 112 Cholesterol 76 LDL Cholesterol, Calc 27 HDL Cholesterol 27 L Vitamin B12 1505 H Urine Creatinine 65.38 Urine Microalbumin < 5.0 03/03/25 09:35 Hgb Hct Plt Count Creatinine Estimated GFR Hgb A1c (Clinic) 6.5 H AST ALT Triglycerides Cholesterol LDL Cholesterol, Calc HDL Cholesterol Vitamin B12 Urine Creatinine Urine Microalbumin Laboratory Tests 03/17/25 07/07/25 08:08 10:46 Glucose (Clinic) 141 H Hgb A1c (Clinic) 6.2 H US ABDOMEN LIMITED WITH LIVER ELASTOGRAPHY 09/05/22 CLINICAL INFORMATION: Abnormal liver function tests COMPARISON: None. TECHNIQUE: Real-time imaging of the abdominal viscera. Noninvasive ultrasound liver fibrosis assessment is performed using Divya ElastPQ point quantification shear wave elastography (2D-SWE) with a C5-2 MHz transducer. Multiple elastography samples are obtained. FINDINGS: PANCREAS: Not well visualized due to bowel gas LIVER: Enlarged echogenic liver probably representing fatty infiltration. Hypoechoic area adjacent to the gallbladder, characteristic location of focal fatty sparing. No other focal lesion or intrahepatic biliary duct dilatation. The right lobe measures 19 cm in length. The left lobe measures 12 cm in length. Portal flow is normal/hepatopedal Shear wave liver elastography median stiffness is 1.4 m/s (reference: normal median stiffness is 1.3 m/s or less). IQR/median stiffness to assess sampling precision is 0.01 (reference: good quality data set is IQR/median stiffness of 0.15 or less). GALLBLADDER: Normal. The gallbladder is physiologically distended without evidence of stones, sludge, polyps, wall thickening or pericholecystic fluid. COMMON BILE DUCT: Normal in caliber measuring 0.5 cm in diameter. RIGHT KIDNEY: Normal. No hydronephrosis. No renal calculi or focal parenchymal lesions. The kidney measures 13.7 cm in maximum dimension. FREE FLUID: None. US/US abdomen licona w elastography IMPRESSION: 1. Impression: Enlarged echogenic liver suggestive of fatty infiltration. Pancreas not well visualized 2. Liver elastography: Adequate liver sampling. In the absence of other known clinical signs, rules out compensated advanced chronic liver disease. [facility] Medical History Obesity (BMI 30.0-34.9) Metabolic dysfunction-associated fatty liver disease (MAFLD) Diverticulosis Tubular adenoma of colon Sleep apnea HIV (human immunodeficiency virus infection) Fatty liver Coronary artery disease Hyperlipidemia Essential hypertension Diabetes Surgical History Stented coronary artery Hx of shoulder surgery H/O colonoscopy History of biopsy Social History Housing: House Alcohol intake: never Patient Tobacco Use Status: Never used Tobacco e-Cigarette/Vaping Use: Never Used Second Hand Smoke Exposure: No service: Yes Current occupational status: employed 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 Current occupational exposures/hazards: No Cognitive needs: No Hearing needs: No Vision needs: Yes (reading glasses) Assessment & Plan Assessment & Plan (1) Diabetes: Code(s): E11.9 - Type 2 diabetes mellitus without complications Category: Medical Qualifiers: Diabetes mellitus type: type 2 Diabetes mellitus termite helper insulin use: without detention use Diabetes mellitus complication status: with hyperglycemia Qualified Code(s): E11.65 - Type 2 diabetes mellitus with hyperglycemia Plan: 64-year-old male with type 2 diabetes mellitus diagnosed in his 50s, with complications of CAD, AYUSH, obesity, metabolic dysfunction associated liver disease who is coming in today for follow up. A1c 07/07/2025 down to 6.2% from February 2025 down to 6.5% from September 2024 elevated at 7.9%. This change has been seen since he was started on the Ozempic. Plan: -continue metformin to 500 mg twice daily -continue Ozempic to 1 mg weekly, -advised 150 minutes of exercise in a week, 30 minutes 5 days a week -up to date with eye visit, no history of retinopathy -foot exam done February 2025, unremarkable -discussed importance of monitoring blood sugars with target blood sugar readings -discussed risks of hyperglycemia with both microvascular and macrovascular complications. -follow up in 6 months (2) Essential hypertension: Code(s): I10 - Essential (primary) hypertension Category: Medical Plan: Blood pressure within goal range. Continue current regimen of amlodipine, losartan and metoprolol. (3) Metabolic dysfunction-associated fatty liver disease (MAFLD): Code(s): K76.0 - Fatty (change of) liver, not elsewhere classified Category: Medical Plan: Fib 4 score 1.70 which is indeterminate, further investigation needed. NAFLD score is-0.90 which is also indeterminate. He already follows with GI, and also mentioned importance of lifestyle modification with a voiding trans and saturated fats as well as aiming for 7% weight loss. However I also told him that his last liver elastography was in 2021, and he would be further evaluation for investigation for liver fibrosis. Told him last visit to discuss further with GI as he is already seeing them. Patient verbalized understanding. Plan: -follow up with GI -continue Ozempic to 1 mg weekly -lifestyle modification advised with 30 minutes of exercise daily and avoiding transient saturated fats (4) Obesity (BMI 30.0-34.9): Code(s): E66.811 - Obesity, class 1 Category: Medical Plan: Current BMI 29.4 kg per m2 down from 30.7 kg in February 2025 per m2, current weight 182 lb down from 190 lb in February 2025. Losing some weight with the Ozempic. Plan: -advised 30 minutes of exercise daily -discussed importance of portion control, calorie deficit -continue Ozempic to 1 mg weekly (5) Hyperlipidemia: Code(s): E78.5 - Hyperlipidemia, unspecified Category: Medical Qualifiers: Hyperlipidemia type: mixed hyperlipidemia Qualified Code(s): E78.2 - Mixed hyperlipidemia Plan: LDL from January 2025 within goal of less than 50 mg/dL given history of CAD. Plan: -continue Zetia 10 mg daily and rosuvastatin 20 mg daily Plan I spent 30 minutes in reviewing the record, seeing the patient and documenting in the medical record. Orders: Orders Lipid Panel 5 Months E11.65 - Type 2 diabetes mellitus with hyperglycemia, E66.811 - Obesity, class 1, E78.2 - Mixed hyperlipidemia, K76.0 - Fatty (change of) liver, not elsewhere classified Aspartate Amino Transferase 5 Months E11.65 - Type 2 diabetes mellitus with hyperglycemia, E66.811 - Obesity, class 1, E78.2 - Mixed hyperlipidemia, K76.0 - Fatty (change of) liver, not elsewhere classified Alanine Aminotransferase 5 Months .65 - Type 2 diabetes mellitus with hyperglycemia, E66.811 - Obesity, class 1, E78.2 - Mixed hyperlipidemia, K76.0 - Fatty (change of) liver, not elsewhere classified Microalbumin, Random (w Creat) 5 Months E11.65 - Type 2 diabetes mellitus with hyperglycemia, E66.811 - Obesity, class 1, E78.2 - Mixed hyperlipidemia, K76.0 - Fatty (change of) liver, not elsewhere classified Vitamin B12 5 Months E11.65 - Type 2 diabetes mellitus with hyperglycemia, E66.811 - Obesity, class 1, E78.2 - Mixed hyperlipidemia, K76.0 - Fatty (change of) liver, not elsewhere classified Hemoglobin A1c 5 Months E11.65 - Type 2 diabetes mellitus with hyperglycemia, E66.811 - Obesity, class 1, E78.2 - Mixed hyperlipidemia, K76.0 - Fatty (change of) liver, not elsewhere classified Creatinine 5 Months E11.65 - Type 2 diabetes mellitus with hyperglycemia, E66.811 - Obesity, class 1, E78.2 - Mixed hyperlipidemia, K76.0 - Fatty (change of) liver, not elsewhere classified Complete Blood Count no Diff 5 Months E11.65 - Type 2 diabetes mellitus with hyperglycemia, E66.811 - Obesity, class 1, E78.2 - Mixed hyperlipidemia, K76.0 - Fatty (change of) liver, not elsewhere classified Medications: Refilled metformin 500 mg PO BID 180 tabs 3RF 90 days semaglutide (Ozempic) 1 mg (0.75 mL) subcut QWEEK 3 mL 7RF Patient Instructions: Do fasting blood work and urine test prior to next appointment in 6 months Coding Level of Care Code Est Pt Level 4 (80329) Complex EM visit Add On G2211 Diagnoses Type 2 diabetes mellitus with hyperglycemia, without long-term current use of insulin E11.65 Diabetes mellitus type: type 2 Diabetes mellitus termite helper insulin use: without termite helper use Diabetes mellitus complication status: with hyperglycemia Essential hypertension I10 Metabolic dysfunction-associated fatty liver disease (MAFLD) K76.0 Obesity (BMI 30.0-34.9) E66.811 Mixed hyperlipidemia E78.2 Hyperlipidemia type: mixed hyperlipidemia Time Spent (min) 30
[2025-07-21 08:18] LABS: Glucose, Whole Blood 119 mg/dL (60-115)
== END 2025-07-21 08:27 | disposition home or self-care (01) ==
LOC: HO.ENCR 08:06
PROVIDERS: PCP Family Medicine; Visit Provider Student in an Organized Health Care Education/Training Program
DX: E11.65 Type 2 diabetes mellitus with hyperglycemia (principal); I10 Essential (primary) hypertension; K76.0 Fatty (change of) liver, not elsewhere classified; E66.811 Obesity, class 1; E78.2 Mixed hyperlipidemia
CPT/HCPCS: 99214; G2211

== ENCOUNTER → 2025-07-21 08:05 | Outpatient (BNVA) | payer OTHER, SELFPAY | PROVIDERS: PCP Family Medicine; Visit Provider Student in an Organized Health Care Education/Training Program | DX: E11.65 Type 2 diabetes mellitus with hyperglycemia (principal) | CPT/HCPCS: 82947 ==

== ENCOUNTER 2025-08-26 13:23 | Outpatient (AMB) | payer OTHER, SELFPAY ==
--- NOTE | 2025-08-26 13:29 | MHC.OFFVIS ---
Intake Visit Reasons: discuss injections for peyronies Intake Note: Patient is present for a follow up to discuss injection for peyronie's Disease Urology Medication:VIT-C , VIT-E Pentoxifylline cs Antibiotic Allergy:NONE Blood Thinner:ASPIRIN PVR: 89mls Orthopedics Teacher Required: No Accompanied by: Self / Same As Patient Allergies lisinopril Adverse Reaction (Intermediate, Verified 08/26/25 14:04) Dry cough tamsulosin Allergy (Unknown, Uncoded 07/21/25 08:13) Unknown HPI Comments Details: Cam is a pleasant male. He is a patient of Dr. Diaz. He is seen for the following urologic conditions - Peyronie's - erectile dysfunction Patient states curvature has responded to oral medications pentoxifylline and vitamin-E Now reporting some decline in quality of erections Has not previously been on oral medications Given diabetic status and nocturia recommend daily tadalafil with on demand Prescriptions provided Three-month follow-up with check testosterone given diabetic status [facility] Medical History Obesity (BMI 30.0-34.9) Metabolic dysfunction-associated fatty liver disease (MAFLD) Diverticulosis Tubular adenoma of colon Sleep apnea HIV (human immunodeficiency virus infection) Fatty liver Coronary artery disease Hyperlipidemia Essential hypertension Diabetes Surgical History Stented coronary artery Hx of shoulder surgery H/O colonoscopy History of biopsy Social History Housing: House Alcohol intake: never Patient Tobacco Use Status: Never used Tobacco e-Cigarette/Vaping Use: Never Used Second Hand Smoke Exposure: No service: Yes Current occupational status: employed 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 Current occupational exposures/hazards: No Cognitive needs: No Hearing needs: No Vision needs: Yes (reading glasses) Review of Systems Const Denies chills and Denies fever(s) Card Reports no additional complaints and Denies syncope Resp Denies cough GI Denies abdominal pain and Denies heartburn Reports as per HPI and Denies change in libido Neuro Denies syncope Psych Denies change in libido Endo Denies change in libido Physical Exam Const General: cooperative, healthy appearing, comfortable and no acute distress Orientation/consciousness: patient oriented x3 HEENT Face and sinus: Yes normal facial exam Mouth: moist mucous membranes Neck Neck: Yes normal visual inspection, Yes full ROM and Yes trachea midline Chest Chest palpation & inspection: normal inspection of the chest Resp Effort & Inspection: normal respiratory effort, able to speak in complete sentences and no respiratory distress GI Inspection: Yes normal to inspection Back/Spine/Pelvis Cervical Spine: normal cervical lordosis Thoracic/Lumbar Spine: thoracic and lumbar spine normal to inspection Skin General skin exam: no rashes or lesions noted Neuro General: patient oriented x3, gait normal, tone normal and moves all extremities Extrem General: Yes normal to inspection and Yes capillary refill normal Assessment & Plan Assessment & Plan (1) Erectile dysfunction: Code(s): N52.9 - Male erectile dysfunction, unspecified Category: Medical Plan Three-month follow-up Orders: Orders Testosterone, Total 10 Weeks N52.9 - Male erectile dysfunction, unspecified Medications: New tadalafil Take 60 minutes prior to planned activity [id number] [facility] Member [id number] 20 mg PO ONCE PRN 30 tabs 1RF sexual activity 30 days N52.9 - Male erectile dysfunction, unspecified tadalafil [id number] [facility] Member [id number] 5 mg PO DAILY 90 tabs 0RF sexual activity 90 days N52.9 - Male erectile dysfunction, unspecified Patient Instructions: This note is constructed using voice recognition software. While every effort has been made to ensure accuracy lighthouse keeper errors may have been included. Imaging studies, laboratory and physical exam results were discussed and reviewed in detail. No major barriers to patient understanding were identified. An opportunity to ask questions regarding the treatment plan was provided. All questions were answered. The patient expressed understanding and agreement with the above treatment plan. The patient is aware they should contact our office by phone for worsening of their current condition or the appearance of new urologic symptoms. Compliance is encouraged with any medications and followup testing that is ordered. It is a privilege to participate in the urologic care of your patient. If you have any questions or concerns regarding treatment for the above conditions, or other urologic issues, please do not hesitate to contact me. The office telephone contact is [phone]. Sincerely, Dr Pasquale Baez MD, [facility] - Urology Compassionate Specialist Care for the Genitourinary System Coding Level of Care Code Est Pt Level 4 (82388) Diagnoses Erectile dysfunction N52.9
--- OUTSIDE RECORDS SUMMARY | 2025-08-26 17:16 | XMS_ITS | Clinical Summary ---
Author Organization [employer] Address [address] [place] [address] Care Team Providers Care Oracle Identity Management Consultant Name Role Phone Unavailable Primary Care [...]
--- OUTSIDE RECORDS SUMMARY | 2025-08-26 17:16 | XMS_ITS | Clinical Summary ---
Author Organization [facility] ity Address [address] [place] [address] Care Team Providers Care Spooler Operator Name Role Phone Unavailable Primary Care Provider Unavailabl e Social History Tobacco Use Types Packs/Day Years Used Date Smoking Tobacco: Never Assessed Sex and Gender Information Value Date Recorded Sex Assigned at Not on file Legal Sex Male 5:07 PM EST Gender Identity Not on file Sexual Orientation Not on file Plan of Treatment Health Maintenance Due Date Last Done Comments Colorectal Cancer Screening: Colonoscopy 1962 DTaP,Tdap,and Td Vaccines (1 - Tdap) 1981 Pneumococcal Vaccine: 50+ Ye ars (1 of 1 - PCV) 2012 Zoster Vaccines (1 of 2) 2012 Cholesterol Screening (Lipid Panel) 11/28/2023 HIV Screening 11/28/2023 Hepatitis C Screening 11/28/2023 Social Influencers of Health Screening 11/28/2023 Depression Screening 10/30/2024 COVID-19 Vaccine (1 - 2023-2 5 season) 2025 Influenza Vaccine (#1) 2025 RSV Immunization Adult [...]
--- OUTSIDE RECORDS SUMMARY | 2025-08-26 17:16 | XMS_ITS | Encounter Summary ---
Author Organization [employer] [facility] Address [address] [place] [address] Care Team Providers Care Burn Center Nurse Name Role Phone Unavailable Primary Care [...]
== END 2025-08-26 14:21 | disposition home or self-care (01) ==
LOC: HO.HUSH 13:24
PROVIDERS: PCP Family Medicine; Visit Provider Urology
DX: N52.9 Male erectile dysfunction, unspecified (principal)
CPT/HCPCS: 99214

== ENCOUNTER → 2025-08-26 13:23 | Outpatient (BNVA) | payer OTHER, SELFPAY | PROVIDERS: PCP Family Medicine; Visit Provider Urology | DX: N52.9 Male erectile dysfunction, unspecified (principal) | CPT/HCPCS: 51798 ==

== ENCOUNTER 2025-09-11 15:30 | Emergency (ER) | payer OTHER, SELFPAY ==
--- NOTE | ~2025-09-11 | XR_ITS ---
EXAMINATION: XR LUMBOSACRAL SPINE CLINICAL INFORMATION: low back pain COMPARISON: None available. TECHNIQUE: Three views of the lumbosacral spine. FINDINGS: There is mild levoscoliosis with straightening of lumbar lordosis. The vertebral heights are normal. There is grade 1 retrolisthesis L3 over L4 and L2 over L3. There is mild loss of L3-4, L4-5 and L5-S1 disc heights. No lytic or sclerotic process seen. There is mild ventral and lateral spondylosis. SI joints are symmetrical and normal. The soft tissues are normal. XR/XR lumbar spine 2-3V IMPRESSION: Mild levoscoliosis. Grade 1 retrolisthesis L3 over L4 and L2 over L3. There is mild degenerative disc changes L3-4, L4-5 and L5-S1 disc levels with ventral spondylosis throughout lumbar spine. No visible acute fracture or dislocation seen. Electronically signed by: Michael Browning MD 09/11/2025 04:16 PM [facility]
[2025-09-11 15:38] VITALS: BP 148/92; PULSE 82; RESP 16; TEMP 36.4; O2SAT 97; BMI 29.5
--- NOTE | 2025-09-11 15:41 | ED.GENADULT ---
HPI - General Adult General Chief complaint: Back Pain/Injury Stated complaint: Back Pain Time Seen by Provider: 09/11/25 20:16 Source: patient Limitations: no limitations History of Present Illness ED Provider: Moni De Dios PA-C HPI narrative: 64-year-old male with a history of hypertension, hyperlipidemia, diabetes, known coronary artery disease, HIV, morbid obesity, fatty liver disease, who presents with low back pain. patient states he has a new mattress pad, he woke this morning with left-sided lumbar pain radiating into the left lower extremity. Associated paresthesias anterior thigh. Denies weakness of lower extremities, urinary retention or bowel incontinence. Related Data Home Medications ?Medication ?Instructions ?Recorded ?Confirmed loratadine 10 mg tablet 10 mg PO DAILY 11/15/21 07/21/25 ascorbate calcium (vitamin C) 500 1,000 mg PO DAILY 11/13/23 07/21/25 mg tablet coenzyme Q10 100 mg capsule (Co 100 mg PO DAILY 11/13/23 07/21/25 Q-10) Previous Rx's ?Medication ?Instructions ?Recorded omega-3 fatty acids 500 mg capsule 500 mg PO BID 90 days #180 caps 08/29/22 amlodipine 10 mg tablet 10 mg PO DAILY 90 days #90 tabs 11/17/24 rosuvastatin 20 mg tablet 20 mg PO BEDTIME 90 days #90 tabs 11/17/24 sennosides 8.6 mg tablet (senna) 1.25 mg (0.1453 x 8.6 mg) PO 11/27/24 BEDTIME for constipation #60 tabs aspirin 81 mg tablet,delayed 81 mg PO DAILY 90 days #90 tabs 02/13/25 release ezetimibe 10 mg tablet 10 mg PO DAILY #90 tabs 02/13/25 pentoxifylline 400 mg 400 mg PO BID 90 days #180 tabs 02/24/25 tablet,extended release vitamin E (dl, acetate) 450 mg 450 mg PO DAILY 90 days #90 caps 02/24/25 (1,000 unit) capsule blood sugar diagnostic (FreeStyle #50 ea 03/17/25 Lite Strips) blood-glucose meter (FreeStyle #1 ea 03/17/25 Lite Meter kit) lancets 28 gauge (FreeStyle #100 ea 03/17/25 Lancets) metoprolol succinate 50 mg 50 mg PO BEDTIME 90 days #90 tabs 04/01/25 tablet,extended release 24 hr azelastine 137 mcg (0.1 %) nasal 2 spray intranasal Q12H 30 days 06/23/25 spray #30 mL bictegravir 50 mg-emtricitabine 1 tab PO DAILY 30 days #30 tabs 06/23/25 200 mg-tenofovir alafenam 25 mg tablet (Biktarvy) diclofenac sodium 1 % topical gel 2 g topical QID PRN pain 28 days 07/07/25 #50 grams metformin 500 mg tablet 500 mg PO BID 90 days #180 tabs 07/21/25 semaglutide 1 mg/dose (4 mg/3 mL) 1 mg (0.75 mL) subcut QWEEK #3 mL 07/21/25 subcutaneous pen injector (Ozempic) losartan 50 mg tablet 50 mg PO DAILY 90 days #90 tabs 08/14/25 omeprazole 20 mg capsule,delayed 20 mg PO BID 90 days #180 caps 08/14/25 release tadalafil 20 mg tablet 20 mg PO ONCE PRN sexual activity 08/26/25 30 days #30 tabs tadalafil 5 mg tablet 5 mg PO DAILY sexual activity 90 08/26/25 days #90 tabs ketorolac 10 mg tablet 10 mg PO Q6H PRN pain #20 tabs 09/11/25 methocarbamol 750 mg tablet 1,500 mg (2 x 750 mg) PO Q8H PRN 09/11/25 pain, moderate #24 tabs prednisone 20 mg tablet 40 mg (2 x 20 mg) PO DAILY #8 tabs 09/11/25 Allergies Allergy/AdvReac Type Severity Reaction Status Date / Time lisinopril AdvReac Intermediate Dry cough Verified 09/11/25 15:39 tamsulosin Allergy Unknown Unknown Uncoded 07/21/25 08:13 [facility] Past Medical History Medical History Obesity (BMI 30.0-34.9) Metabolic dysfunction-associated fatty liver disease (MAFLD) Diverticulosis Tubular adenoma of colon Sleep apnea HIV (human immunodeficiency virus infection) Fatty liver Coronary artery disease Hyperlipidemia Essential hypertension Diabetes Surgical History Stented coronary artery Hx of shoulder surgery H/O colonoscopy History of biopsy Social History Social History Housing: House Alcohol intake: never Patient Tobacco Use Status: Never used Tobacco e-Cigarette/Vaping Use: Never Used Second Hand Smoke Exposure: No service: Yes Current occupational status: employed 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 Current occupational exposures/hazards: No Cognitive needs: No Hearing needs: No Vision needs: Yes (reading glasses) Physical Exam ED Vital Signs: Vital Signs - 24 hr 09/11/25 15:38 09/11/25 18:21 09/11/25 19:42 Temperature 97.5 F 98.1 F 97.5 F Pulse Rate 82 90 68 Respiratory Rate 16 18 18 Blood Pressure 148/92 H 132/84 133/88 Pulse Oximetry 97 95 95 Oxygen Delivery Method Room Air Room Air Room Air 09/11/25 21:54 Temperature 97.5 F Pulse Rate 60 Respiratory Rate 16 Blood Pressure 146/86 H Pulse Oximetry 95 Oxygen Delivery Method Room Air BMI result Body Mass Index 29.5 Const Other: Alert Orientation/consciousness: patient oriented x3 Resp Effort & Inspection: normal respiratory effort Cardio Other: normal peripheral perfusion Skin Other: warm dry no rash Neuro Other: ambulates with a antalgic gait secondary to his pain General: patient oriented x3, no focal motor deficits and CN's II-XI intact bilaterally Extrem Other: strength 5/5 bilateral lower extremities Psych Other: cooperative Course Course Course Narrative: RME: 64-year-old male presents to ED for low back pain radiating down left leg that is worse on movement. Patient denies any trauma. Patient states he recently changed his bed now specialist zoster caused him to have back pain. Patient denies any genitourinary symptoms abdominal pain nausea vomiting. UA x-ray ordered Medications Administered Discontinued Medications Generic Name Dose Route Start Last Admin Trade Name Freq PRN Reason Stop Dose Admin Ketorolac Tromethamine 15 mg 09/11/25 21:21 09/11/25 21:30 Ketorolac Tromethamine 15 Mg/Ml Vial IM 09/11/25 21:22 15 mg ONCE ONE Administration Prednisone 40 mg 09/11/25 21:21 09/11/25 21:31 Prednisone 20 Mg Tablet PO 09/11/25 21:22 40 mg ONCE ONE Administration Medical Decision Making Medical Decision Making MDM Narrative: 64-year-old male with a history of hypertension, hyperlipidemia, diabetes, known coronary artery disease, HIV, morbid obesity, fatty liver disease, who presents with low back pain. patient states he has a new mattress pad, he woke this morning with left-sided lumbar pain radiating into the left lower extremity. Associated paresthesias anterior thigh. Denies weakness of lower extremities, urinary retention or bowel incontinence. problem: Obesity, diabetes History: Per patient I have considered the following differential diagnoses: Lumbar strain, lumbar radiculopathy, cauda equina, compression fracture Plan: X-rays ordered from triage, he has considerable arthritis. The patient is experiencing radicular symptoms without red flag signs symptoms concerning for cord compression, we will treat accordingly. I have independently reviewed the following tests: Labs: Urine not infected X-ray lumbar spine:RDER #: [id number] XR/XR lumbar spine 2-3V IMPRESSION: Mild levoscoliosis. Grade 1 retrolisthesis L3 over L4 and L2 over L3. There is mild degenerative disc changes L3-4, L4-5 and L5-S1 disc levels with ventral spondylosis throughout lumbar spine. No visible acute fracture or dislocation seen. Differential Diagnosis Differential Diagnoses: The differential diagnosis associated with the presentation includes see [facility] Admission/Observation Consideration of admission/observation: Escalation of care including admission/observation considered not applicable Lab Data [facility] Lab Attestation statement: I reviewed the patient's lab results. Labs: Lab Results 09/11/25 Range/Units 18:01 Urine Color Yellow Urine Appearance Clear Urine pH 7.5 (5.0-9.0) Ur Specific [place] 1.015 (1.005-1.025) Urine Protein 100 (2+) H (Neg-Trace) mg/dL Urine Glucose (UA) Negative (Negative) mg/dL Urine Ketones Negative (Negative) mg/dL Urine Blood Negative (Negative) Urine Nitrite Negative (Negative) Ur Leukocyte Esterase Negative (Negative) Urine RBC 0-2 (0-2) /HPF Urine WBC 0-5 (0-5) /HPF Ur Squamous Epith Cells 0-2 (0-2) /HPF Urine Bacteria None Seen (None Seen) Hyaline Casts 0-2 (0-2) /LPF Radiology Impression Discussion of test interpretation with radiology: I have reviewed the radiologist's reading. Discharge Plan Discharge Clinical Impression: Acute left lumbar radiculopathy Patient Disposition: Home, Self-Care Instructions: Lumbar Radiculopathy (ED) Additional Instructions: you are being treated for lumbar radiculopathy, see home care instructions. The x-ray revealed that you have a great deal of arthritis in your lower back. Take the prednisone as directed this is an anti-inflammatory take it in the morning. Take the ketorolac as directed take it with food. This is a 2nd anti-inflammatory. Take the methocarbamol as needed, this is a muscle relaxant, it will cause drowsiness, do not drive or operate machinery while taking this medication. Follow up with your primary care provider, you may require physical therapy, they can help expedite this process for you. Prescriptions: New methocarbamol 750 mg tablet 1,500 mg PO Q8H PRN (Reason: pain, moderate) Qty: 24 0RF ketorolac 10 mg tablet 10 mg PO Q6H PRN (Reason: pain) Qty: 20 0RF Rx Instructions: maximum total duration of 5 days from all oral, intranasal, or parenteral formulations, patient received an intramuscular dose here in the emergency room prednisone 20 mg tablet 40 mg PO DAILY Qty: 8 0RF No Action rosuvastatin 20 mg tablet 20 mg PO BEDTIME 90 Days Qty: 90 3RF amlodipine 10 mg tablet 10 mg PO DAILY 90 Days Qty: 90 3RF sennosides [senna] 8.6 mg tablet 1.25 mg PO BEDTIME Qty: 60 12RF ezetimibe 10 mg tablet 10 mg PO DAILY Qty: 90 3RF aspirin 81 mg tablet,delayed release (DR/EC) 81 mg PO DAILY 90 Days Qty: 90 3RF metoprolol succinate 50 mg tablet extended release 24 hr 50 mg PO BEDTIME 90 Days Qty: 90 1RF omeprazole 20 mg capsule,delayed release(DR/EC) 20 mg PO BID 90 Days Qty: 180 0RF losartan 50 mg tablet 50 mg PO DAILY 90 Days Qty: 90 1RF loratadine 10 mg tablet 10 mg PO DAILY omega-3 fatty acids 500 mg capsule 500 mg PO BID 90 Days Qty: 180 3RF azelastine 137 mcg (0.1 %) spray,non-aerosol 2 spray intranasal Q12H 30 Days Qty: 30 6RF Rx Instructions: administer into each nostril tadalafil 5 mg tablet 5 mg PO DAILY 90 Days Qty: 90 0RF Rx Instructions: [id number] [facility] GroupGDRX Member [id number] tadalafil 20 mg tablet 20 mg PO ONCE PRN (Reason: sexual activity) 30 Days Qty: 30 1RF Rx Instructions: Take 60 minutes prior to planned activity [id number] [facility]AMED [facility] GroupGDR[employer] Member [id number] Biktarvy 50-200-25 mg tablet 1 tab PO DAILY 30 Days Qty: 30 5RF ascorbate calcium (vitamin C) 500 mg tablet 1,000 mg PO DAILY coenzyme Q10 [Co Q-10] 100 mg capsule 100 mg PO DAILY pentoxifylline 400 mg tablet extended release 400 mg PO BID 90 Days Qty: 180 3RF vitamin E (dl, acetate) 450 mg (1,000 unit) capsule 450 mg PO DAILY 90 Days Qty: 90 3RF (DME) blood-glucose meter [FreeStyle Lite Meter] Kit See Rx Instructions .Route Qty: 1 0RF Rx Instructions: As directed to check blood sugars once a day (DME) FreeStyle Lite Strips Strip See Rx Instructions .Route Qty: 50 6RF Rx Instructions: As directed to check blood sugars once a day (DME) lancets [FreeStyle Lancets] 28 gauge misc See Rx Instructions .Route Qty: 100 5RF Rx Instructions: As directed to check blood sugars once a day diclofenac sodium 1 % gel 2 g topical QID PRN (Reason: pain) 28 Days Qty: 50 3RF Rx Instructions: apply to single elbow, wrist or hand; for hand includes palm/fingers/back of hand Ozempic 1 mg/dose (4 mg/3 mL) pen injector 1 mg subcut QWEEK Qty: 3 7RF metformin 500 mg tablet 500 mg PO BID 90 Days Qty: 180 3RF Stand Alone Forms: Work/School Release Interventions: ED Discharge Assessment Last Done: 09/11/25 21:54 Discharge Date/Time: 09/11/25 21:55 Print Language: Citizen Of [place]
[2025-09-11 18:12] LABS: Appearance Urine Clear; Glucose Urine UA Negative (Negative); PH 7.5 (5.0-9.0); Specific Gravity - Urine 1.015 (1.005-1.025); UMIC TRIGGER UACC YES
[2025-09-11 18:21] VITALS: BP 132/84; PULSE 90; RESP 18; TEMP 36.7; O2SAT 95
--- OUTSIDE RECORDS SUMMARY | 2025-09-11 19:03 | XMS_ITS | Clinical Summary ---
Author Organization [employer] Address [address] [place] [address] Care Team Providers Care Service Center Technician Name Role Phone Unavailable Primary Care [...]
--- OUTSIDE RECORDS SUMMARY | 2025-09-11 19:03 | XMS_ITS | Encounter Summary ---
Author Organization [employer] [facility] Address [address] [place] [address] Care Team Providers Care Traffic Signal Supervisor Maintenance Name Role Phone Unavailable Primary Care Provider [...]
--- OUTSIDE RECORDS SUMMARY | 2025-09-11 19:03 | XMS_ITS | Clinical Summary ---
Author Organization [employer] [facility] ity Address [address] [place] [address] Care Team Providers Care Food Production Manager Name Role Phone Unavailable Primary Care Provider [...] Depression Screening 10/30/2024 COVID-19 Vaccine (1 - 2024-2 6 season) 2025 Influenza Vaccine (#1) 2025 RSV [...]
[2025-09-11 19:42] VITALS: BP 133/88; PULSE 68; RESP 18; TEMP 36.4; O2SAT 95
[2025-09-11 21:54] VITALS: BP 146/86; PULSE 60; RESP 16; TEMP 36.4; O2SAT 95
== END 2025-09-11 21:55 | disposition home or self-care (01) ==
PROVIDERS: Physician Assistant; Emergency Provider Emergency Medicine
DX: M54.16 Radiculopathy, lumbar region (principal); R20.2 Paresthesia of skin; M79.605 Pain in left leg
CPT/HCPCS: 72100; 81001; 96372; 99284; J1885

== ENCOUNTER → 2025-09-11 15:39 | Outpatient (BNV) | payer OTHER, SELFPAY | PROVIDERS: Visit Provider Radiology Diagnostic Radiology | DX: M54.50 Low back pain, unspecified (principal) | CPT/HCPCS: 72100 ==

== ENCOUNTER 2025-10-09 15:22 | Outpatient (AMB) | payer OTHER, SELFPAY ==
--- NOTE | 2025-10-09 15:31 | A.OFFPC_ITS ---
Vital Signs 10/09/25 15:36 Height 5 ft 6 in Weight 186 lb 8 oz BMI 30.1 BP 108/62 Blood Pressure Location Rt brachial Position Sitting Respiration 18 Pulse 70 Pulse Source Pulse Oximeter Temp 98 F Temp Source Oral Pulse Oximetry (%) 96 Oxygen Delivery Method Room Air Intake Visit Reasons: [facility] er visit Intake Note: Patient present for follow up ER visit. Pickle Maker Required: No Accompanied by: Self / Same As Patient Allergies lisinopril Adverse Reaction (Intermediate, Verified 10/09/25 15:35) Dry cough tamsulosin Allergy (Unknown, Uncoded 10/09/25 15:35) Unknown Medication List - Last Reconciled 10/09/25 by Akash Diaz MD amlodipine 10 mg PO DAILY 90 days ascorbate calcium (vitamin C) 1,000 mg PO DAILY aspirin 81 mg PO DAILY 90 days azelastine 2 sprays intranasal Q12H 30 days [id number]-[id number] ala 50-200-25 mg (Biktarvy) 1 tab PO DAILY 30 days blood sugar diagnostic (FreeStyle Lite Strips) As directed to check blood sugars once a day blood-glucose meter (FreeStyle Lite Meter kit) As directed to check blood sugars once a day coenzyme Q10 (Co Q-10) 100 mg PO DAILY diclofenac sodium 1% 2 grams topical QID PRN 28 days ezetimibe 10 mg PO DAILY ketorolac 10 mg PO Q6H PRN lancets (FreeStyle Lancets) As directed to check blood sugars once a day loratadine 10 mg PO DAILY losartan 50 mg PO DAILY 90 days metformin 500 mg PO BID 90 days methocarbamol 1,500 mg (2 x 750 mg) PO Q8H PRN metoprolol succinate ER 50 mg PO BEDTIME 90 days omega-3 fatty acids 500 mg PO BID 90 days omeprazole 20 mg PO BID 90 days pentoxifylline ER 400 mg PO BID 90 days prednisone 40 mg (2 x 20 mg) PO DAILY rosuvastatin 20 mg PO BEDTIME 90 days semaglutide (Ozempic) 1 mg (0.75 mL) subcut QWEEK sennosides (senna) 1.25 mg (0.1453 x 8.6 mg) PO BEDTIME tadalafil 20 mg PO ONCE PRN 30 days tadalafil 5 mg PO DAILY 90 days vitamin E (dl, acetate) 450 mg PO DAILY 90 days Tobacco use date assessed: 07/07/25 Dental Screening Dental Screen Date: 07/07/25 [facility] fu er visit HPI Details 65 y/o male [place] [facility] for low back pain. X-ray revealed great deal of arthritis in lower back. Recommended him to take prednisone as prescribed, ketorolac and methocarbamol as needed. Still reports intermittent back discomfort. [facility] Medical History Obesity (BMI 30.0-34.9) Metabolic dysfunction-associated fatty liver disease (MAFLD) Diverticulosis Tubular adenoma of colon Sleep apnea HIV (human immunodeficiency virus infection) Fatty liver Coronary artery disease Hyperlipidemia Essential hypertension Diabetes Surgical History Stented coronary artery Hx of shoulder surgery H/O colonoscopy History of biopsy Social History (Updated 10/09/25 @ 15:35 by Chon Jiménez CMA) Housing: House Alcohol intake: never Patient Tobacco Use Status: Never used Tobacco e-Cigarette/Vaping Use: Never Used Second Hand Smoke Exposure: No Use of substances other than those prescribed or required for medical reasons: No service: Yes Current occupational status: 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 1. Little interest or pleasure in doing things: not at all 2. Feeling down, depressed, or hopeless: not at all 3. Trouble falling or staying asleep, or sleeping too much: not at all 4. Feeling tired or having little energy: not at all 5. Poor appetite or overeating: not at all 6. Feeling bad about yourself - or that you are a failure or have let yourself or your family down: not at all 7. Trouble concentrating on things, such as reading the newspaper or watching television: not at all 8. Moving or speaking so slowly that other people could have noticed. Or the opposite - being so fidgety or restless that you have been moving around a lot more than usual: not at all 9. Thoughts that you would be better off or of hurting yourself in some way: not at all Total score: 0 Depression Screening Interpretation: Negative Depression Screening Done: Yes 78213 - PHQ-9 Billing: Yes Source: Developed by Drs. Brett Donnelly, Jyothi Madison, Darian Patterson and colleagues, with an educational ara from [employer]. Thrive Questionnaire Date Thrive assessed: 02/24/25 I am a: Patient What is your living situation today?: I have a steady place to live Within the past 12 months, did the food you bought not last and you didn't have the money to get more?: Never true Within the past 12 months, did you worry whether your food would run out before you got money to buy more?: Never true Do you have trouble paying for medicines?: No Do you have trouble getting transportation to medical appointments?: No Do you have trouble paying your heating and electricity bill?: No Do you have trouble taking care of your child, family member or friend?: No Do you have trouble with day-to-day activities such as bathing, preparing meals, shopping, managing finances, etc.?: No Are you currently unemployed and looking for a job?: No Are you interested in more education?: No Please select the resources that you would like help with: None Currently or been in a relationship where the following occur: I choose not to answer THRIVE Score: 0 AUDIT C Alcohol Use Questionnaire (AUDIT-C) 1. How often do you have a drink containing alcohol?: Monthly or less 2. How many drinks containing alcohol do you have on a typical day when you are drinking?: 1 or 2 3. How often do you have six or more drinks on one occasion?: Never Total Score: 1 MONTSERRAT-7 AMB Questionnaire MONTSERRAT-7 Date MONTSERRAT - 7 assessed: 07/07/25 Feeling nervous, anxious, or on edge: 0 = Not at all Not being able to stop or control worryin = Not at all Worrying too much about different things: 0 = Not at all Trouble relaxin = Not at all Being so restless that it is hard to sit still: 0 = Not at all Becoming easily annoyed or irritable: 0 = Not at all Feeling afraid as if something awful might happen: 0 = Not at all Total MONTSERRAT-7 score (0-4 normal; 5-9 mild; 10-14 moderate; 15-21 severe): 0 Source: Developed by Drs. Brett Donnelly, Jyothi Madison, Darian Patterson and colleagues, with an educational ara from [employer]. MONTSERRAT-7 Assessment Billing MONTSERRAT-7 Assessment Tool: MONTSERRAT-7 Assessment 02053 Review of Systems Const Denies chills, Denies fatigue, Denies fever(s), Denies headache(s) and Denies weakness ENT Denies dizziness and Denies headache(s) Card Denies dyspnea Resp Denies cough, Denies dyspnea, Denies wheezing and Denies other (shortness of breath) Musc Denies numbness and Denies tingling Neuro Denies dizziness, Denies headache(s), Denies numbness, Denies tingling and Denies weakness Psych Denies anxiety and Denies depression Endo Denies fatigue Aller/Immun Denies wheezing Physical exam (Primary Care) Vital Signs: Last Vital Signs Temp 98 F 10/09/25 15:36 Pulse 70 10/09/25 15:36 Resp 18 10/09/25 15:36 BP 108/62 10/09/25 15:36 Pulse Ox 96 10/09/25 15:36 Oxygen Delivery Method Room Air 10/09/25 15:36 BMI result Body Mass Index 30.1 Tobacco/Smoking Status: Tobacco use Status Tobacco use date assessed 07/07/25 10/09/25 15:34 Patient Tobacco Use Status Never used Tobacco 10/09/25 15:35 e-Cigarette/Vaping Use Never Used 10/09/25 15:35 PHQ-9: PHQ-9 Score PHQ-9: Total score 0 10/09/25 15:34 Depression Screening Interpretation: Negative Thrive Assessment: Date of Thrive Assessment Date Thrive assessed 02/24/25 10/09/25 15:34 Currently or been in a relationship where the following occur: I choose not to answer Const General: well developed; No acute distress Nutritional Appearance: well nourished Orientation/consciousness: patient oriented x3 HENMT Head: Yes normocephalic and Yes atraumatic Eyes General: appearance normal, both eyes and all related structures Pupils: Equal, round and reactive pupils present EOM: EOMs intact bilaterally Resp Effort & Inspection: normal respiratory effort Neuro General: patient oriented x3 and gait normal Cranial nerves: Yes Equal, round and reactive pupils present Psych Affect: normal affect Coding Level of Care Code Est Pt Level 3 (26572) Diagnoses Low back pain M54.50 Essential hypertension I10 Coronary artery disease I25.10 Additional Codes MONTSERRAT-7 Assessment Billing - MONTSERRAT-7 Assessment Tool: MONTSERRAT-7 Assessment 45908 ([id number]) PHQ-9 - 98829 - PHQ-9 Billing: Yes ([id number]) Assessment & Plan Assessment & Plan (1) Low back pain: Code(s): M54.50 - Low back pain, unspecified Category: Medical (2) Essential hypertension: Code(s): I10 - Essential (primary) hypertension Category: Medical (3) Coronary artery disease: Code(s): I25.10 - Atherosclerotic heart disease of [place] coronary artery without angina pectoris Category: Medical Plan ED follow-up for low back pain and strain along with radiation into left buttock and leg He was given prednisone, ketorolac and methocarbamol. Patient took the medications. He does not think they helped much. Currently he is taking ibuprofen and Doans Pills (Magnesium) OTC. Still getting some radiation of discomfort into left buttock and leg. Start physical therapy Ice/heat May continue the above medications If not improving will consider referral to Ortho additional imaging Orders: Orders PT Evaluation and Treatment Today M54.50 - Low back pain, unspecified
[2025-10-09 15:36] VITALS: BP 108/62; PULSE 70; RESP 18; TEMP 36.6; O2SAT 96; BMI 30.1
--- OUTSIDE RECORDS SUMMARY | 2025-10-09 22:57 | XMS_ITS | Encounter Summary ---
Author Organization [facility] [facility] Address [address] [place] [address] Care Team Providers Care Budget Specialist Name Role Phone Unavailable Primary Care Provider [...]
--- OUTSIDE RECORDS SUMMARY | 2025-10-09 22:57 | XMS_ITS | Clinical Summary ---
Author Organization [employer] Address [address] [place] [address] Care Team Providers Care Spinner Hand Name Role Phone Unavailable Primary Care [...]
--- OUTSIDE RECORDS SUMMARY | 2025-10-09 22:57 | XMS_ITS | Clinical Summary ---
Author Organization [employer] [facility] ity Address [address] [place] [address] Care Team Providers Care School Plant Consultant Name Role Phone Unavailable Primary Care [...]
== END 2025-10-09 15:55 | disposition home or self-care (01) ==
LOC: HO.HMCFM 15:23
PROVIDERS: PCP Family Medicine; Visit Provider Family Medicine
DX: M54.50 Low back pain, unspecified (principal); I10 Essential (primary) hypertension; I25.10 Atherosclerotic heart disease of native coronary artery without angina pectoris

== ENCOUNTER → 2025-10-09 15:22 | Outpatient (BNVA) | payer OTHER, SELFPAY | PROVIDERS: PCP Family Medicine; Visit Provider Family Medicine | DX: Z13.31 Encounter for screening for depression (principal) | CPT/HCPCS: 96127 ==